=== PATIENT | female | born 1955 | race Caucasian/White ===

== ENCOUNTER 2016-12-05 07:30 | Inpatient (IN) | payer MEDICARE, BC ==
[~2016-12-05 07:30] MED LIST: CHLORHEXIDINE GLUCONATE 15 ML CUP MUCOUS MEM ONE; DEXAMETHASONE SOD PHOSPHATE 10 MG/ML 1 ML VIAL IV ONE; ENOXAPARIN 40 MG/0.4 ML SYRINGE SQ STA; HYDROmorphone 1 MG/ML 1 ML SYRINGE IVP PRN; MIDAZOLAM 2 MG/2 ML VIAL IV PRN; PANTOPRAZOLE 40 MG/10 ML VIAL IV STA; ceFAZolin 2 GM in SODIUM CHLORIDE 0.9% 100 ML IVPB ONE
--- NOTE | 2016-12-05 08:34 | P.GSHP ---
History of Present Illness H&P Date: 12/05/16 DATE OF SERVICE: 12/05/2016 CHIEF COMPLAINT: Bariatric assessment. HISTORY OF PRESENT ILLNESS: Irene Kinney is a 61-year-old female who comes in with troubles with her weight. She has had several years of challenges in controlling her weight. Separately, she has severe gastroesophageal reflux disease. Despite having previous Fercho fundoplasty, her symptoms have become worse. She has developed obstructive sleep apnea including hypertensive heart disease as a result of her morbid obesity. Now she presents for further evaluation and management. At her height of 5 feet 7-1/2 inches, she comes in weighing 238 pounds, body mass index 36.7. Her ideal body weight is 158 pounds. She is 80 pounds overweight. She has completely medical supervised weight loss and has lost 11 pounds in 3 months. PAST MEDICAL HISTORY: 1. Chronic obstructive pulmonary disease. 2. Moderate to severe sleep apnea. 3. Gastroesophageal reflux disease. 4. Hyperlipidemia. 5. Chronic bronchitis. 6. Anxiety. 7. Depression. 8. Osteoarthritis. PAST SURGICAL HISTORY: 1. Fercho fundoplasty. 2. Upper endoscopy. 3. Tubal ligation. 4. Cholecystectomy. MEDICATIONS: 1. Wellbutrin 2. Co-Q10 3. Spiriva 4. Zocor 5. Zoloft 6. Multivitamin 7. DuoNeb 8. Flonase 9. Nexium 10. Vitamin D3 11. Aspirin 12. Proventil 13. Alprazolam. ALLERGIES: ERYTHROMYCIN. SOCIAL HISTORY: Past tobacco abuse. FAMILY HISTORY: Pertinent for hypertension. REVIEW OF SYSTEM: CONSTITUTIONAL: [place] body weight of 158 pounds. Present weight of 238 pounds. Body mass index of 36.7. She has lost 11 pounds since August 2016 otherwise 3 months. GASTROINTESTINAL: Severe gastroesophageal reflux disease. Prior history of Fercho fundoplasty, now with failure. RESPIRATORY: Severe COPD. History of sleep apnea. MUSCULOSKELETAL: Has osteoarthritis of the lower back including bilateral hips and knees. ENDOCRINE: No reports of thyroid disorder or glucose intolerance. CARDIOVASCULAR: History of hyperlipidemia. Also has hypertension. NEURO: No reports of stroke or seizure disorder. PSYCH: History of depression without suicidal ideation. History of anxiety. HEMATOLOGIC: No reports of DVTs or easy bruising or bleeding. HEENT: No reports of dysphagia, troubles with hearing or nosebleeds. PHYSICAL EXAM: VITAL SIGNS: 98.3, 86, 16, 133/82, 5 feet 7-1/2, 238pounds, body mass index of 36.7. GENERAL: Well-developed female, no acute distress. ABDOMEN: Soft, nontender, nondistended. HEENT: No scleral icterus. Extraocular movements grossly intact. Moist buccal mucosa. NECK: Supple without lymphadenopathy. CHEST: Nonlabored respirations. Equal bilateral excursions. CARDIOVASCULAR: Regular rate and rhythm. MUSCULOSKELETAL: No clubbing, cyanosis, or edema. NEURO: No focal or lateralizing signs. PSYCH: Appropriate affect. Alert and oriented to person, place, and time. LABS: Bariatric metabolic panel has improved in the past without evidence of prediabetes. ASSESSMENT: 1. Morbid obesity due to excess caloric intake. 2. Body mass index today 38.4 down to 36.7 3. Hypertensive heart disease. 4. Chronic obstructive pulmonary disease. 5. Obstructive sleep apnea. 6. Hyperlipidemia. 7. Depression. 8. Anxiety disorder. 9. History of gastroesophageal reflux disease. 10. History of recurrent diaphragmatic hiatal hernia. 11. Dietary surveillance and counseling. 12. Osteoarthritis of lower back. 13. Osteoarthritis of the bilateral hips. 14. Hypertension. 15. Dietary surveillance and counseling. PLAN: 1. Given severity of gastroesophageal reflux disease including comorbidities, she has elected for Da-en-Y gastric bypass. Extended time for surgery was also reviewed with her history of Fercho fundoplasty. 2. She has increased risk for complications including leak, stricture, which she demonstrated understanding. 3. An 8 page bariatric second generation consent form reviewed in detail and signed between myself and the patient. Risks including nutritional deficiencies reviewed in detail as well. 4. [place] bariatric surgery collaborative was also reviewed as well. 5. Inpatient hospitalization of 2 days or more advised. 6. DVT prophylaxis. 7. Antibiotic prophylaxis. 8. Will need a CPAP machine. 9. In review of her clinical profile, she demonstrates an understanding of a bariatric lifestyle. Past Medical History Past Medical History: Asthma, Cancer, COPD, GERD/Reflux, Hyperlipidemia, Respiratory Disorder, Sleep Apnea/CPAP/BIPAP Additional Past Medical History / Comment(s): chronic bronchitis, varicose veins , hx ulcers, hx skin cancer History of Any Multi-Drug Resistant Organisms: None Reported Past Surgical History: Cholecystectomy, Tubal Ligation Additional Past Surgical History / Comment(s): fercho fundoplication, Past Anesthesia/Blood Transfusion Reactions: Motion Sickness Past Psychological History: Anxiety, Depression Smoking Status: Former smoker Additional Past Alcohol Use History / Comment(s): quit smoking regular 3 years ago, still occ smoking-last time was 3 weeks ago, was up to 2 1/2 PPD, Started smoking age 15 Past Drug Use History: None Reported - Past Family History Mother Family Medical History: Hypertension Father Family Medical History: Cancer Additional Family Medical History / Comment(s): due to accident, Medications and Allergies Home Medications Medication Instructions Recorded Confirmed Type ALPRAZolam 1 mg PO HS 05/22/16 12/02/16 History ALPRAZolam [ALPRAZolam XR] 0.5 mg PO QAM 05/22/16 12/02/16 History Albuterol Sulfate [Proventil Hfa] 1 - 2 puff INHALATION Q6HR PRN 05/22/16 History Aspirin [Adult Low Dose Aspirin EC] 81 mg PO DAILY 05/22/16 12/02/16 History Esomeprazole Magnesium [NexIUM] 40 mg PO DAILY 05/22/16 12/02/16 History Fluticasone Nasal [place] [Flonase 2 spr EA NOSTRIL DAILY PRN 05/22/16 12/02/16 History Nasal [place]] Multivitamin [Multivitamins Adult 1 each PO DAILY 05/22/16 12/02/16 History Gummies] Sertraline HCl [Zoloft] 50 mg PO DAILY 05/22/16 12/02/16 History Sertraline HCl [Zoloft] 100 mg PO HS 05/22/16 12/02/16 History Simvastatin [Zocor] 20 mg PO HS 05/22/16 12/02/16 History Tiotropium [place] [Spiriva] 1 cap INHALATION DAILY 05/22/16 12/02/16 History buPROPion SR [Wellbutrin Sr] 150 mg PO BID 05/22/16 12/02/16 History Beclomethasone Dipropionate [Qvar 2 puff INHALATION BID 12/02/16 12/02/16 History 40 mcg] Allergies Allergy/AdvReac Type Severity Reaction Status Date / Time erythromycin base AdvReac Diarrhea Verified 12/02/16 08:42
[2016-12-05] MEDS ORDERED: ceFAZolin 2 GM in SODIUM CHLORIDE 0.9% 100 ML IVPB ONE (10:30)
[2016-12-05] MEDS: LACTATED RINGERS 1,000 ML IV SCH ×2 (10:54→11:11)
[2016-12-05] MEDS: ONDANSETRON 4 MG/2 ML VIAL IVP ONE ×2 (11:04→15:50)
[2016-12-05] MEDS ORDERED: VECURONIUM 10 MG VIAL IV ONE (11:12)
[2016-12-05] MEDS ORDERED: SUCCINYLCHOLINE CHLORIDE 100 MG/5 ML SYR IV ONE (11:12)
[2016-12-05] MEDS ORDERED: fentaNYL (PF) 50 MCG/ML 2 ML AMP ONE (11:12)
[2016-12-05] MEDS ORDERED: GLYCOPYRROLATE 0.2 MG/ML 2 ML VIAL ONE (11:12)
[2016-12-05] MEDS ORDERED: PROPOFOL 10 MG/ML 20 ML VIAL IV ONE (11:12)
[2016-12-05] MEDS ORDERED: HYDROmorphone (PF) 1 MG/ML ONE (11:12)
[2016-12-05] MEDS ORDERED: ROCURONIUM BROMIDE 10 MG/ML 10 ML VIAL IV ONE (11:12)
[2016-12-05] MEDS ORDERED: NEOSTIGMINE 1 MG/ML 10 ML VIAL ONE (11:12)
[2016-12-05] MEDS ORDERED: LIDOCAINE 1% INJ 10MG/ML (20 ML MDV) ONE (11:12)
[2016-12-05] MEDS ORDERED: PHENYLEPHRINE-0.9% NACL SYG 1 MG/10 ML SYRINGE ONE (11:12)
[2016-12-05] MEDS ORDERED: MIDAZOLAM 2 MG/2 ML VIAL ONE (11:12)
[2016-12-05] MEDS: BUPIVACAINE LIPOSOME/PF 1.3% 20 ML, BUPIVACAIN-EPI 0.5%-1:200,000 25 ML, SODIUM CHLORID... MISCELLANE ONE ×6 (11:45→11:56)
[2016-12-05] MEDS ORDERED: LACTATED RINGERS 1,000 ML IV ONE ×2 (11:49→14:38)
--- NOTE | 2016-12-05 14:46 | P.PCN ---
Date of Procedure: 12/05/16 Preoperative Diagnosis: Morbid obesity Postoperative Diagnosis: Same Procedure(s) Performed: Gastric bypass, 125 cm, takedown Fercho fundoplasty, lysis of adhesions over 1.5 hours, intraoperative esophagogastrojejunoscopy, placement of SHANNAN drain, placement of Isela drain Anesthesia: RABIA, local Surgeon: Ashley Winter Estimated Blood Loss (ml): 50 Pathology: none sent Condition: stable Disposition: floor Operative Findings: Takedown Fercho fundoplasty, reinforced stapler gastric remnant medial edge, negative test, 4 purple staplers for gastric pouch
[2016-12-05] MEDS ORDERED: NALOXONE 0.4 MG/ML 1 ML VIAL IV PRN (14:58)
[2016-12-05] MEDS ORDERED: diphenhydrAMINE 50 MG/ML 1 ML VIAL IVP PRN (14:58)
[2016-12-05] MEDS ORDERED: HYOSCYAMINE ORAL DROPS 1.875 MG/15 ML BOTTLE PO PRN (14:58)
[2016-12-05] MEDS ORDERED: HYDROcodone/APAP 15 ML SOLUTION PO PRN (14:58)
[2016-12-05] MEDS: ALBUTEROL NEBULIZED 2.5 MG/3 ML INHALATION SCH ×2 (16:20→21:11)
--- NOTE | 2016-12-05 16:38 | P.PN ---
Subjective Principal diagnosis: Morbid obesity The patient is postop day 0 status post gastric bypass and takedown of Fercho fundoplasty. She's been transferred to her room. No reports of nausea or vomiting. Objective - Vital Signs Vital signs: Vital Signs Temp 99.2 F 12/05/16 14:50 Pulse 89 12/05/16 15:50 Resp 16 12/05/16 15:50 BP 135/60 12/05/16 15:50 Pulse Ox 94 L 12/05/16 16:27 Intake & Output 12/04/16 12/05/16 12/05/16 18:59 06:59 18:59 Intake Total 2300 Output Total 400 Balance 1900 Weight 104.553 kg Intake: IV 2300 Output: Urine 280 Estimated Blood Loss 120 - Exam GENERAL: Well developed and in no acute distress. Pleasant. HEENT: No sclera icterus. Extraocular movements grossly intact. Moist buccal mucosa. Head is atraumatic, normocephalic. Hears conversational speech. No nasal drainage. NECK: Supple without lymphadenopathy. No JV distention. CHEST: Non-labored respirations and equal bilateral excursions. CARDIOVASCULAR: Regular rate and rhythm. Palpable 2+ radial pulses. ABDOMEN: Soft, SHANNAN sanguinous serous. Appropriate tenderness. Incisional left upper quadrant. MUSCULOSKELETAL: No clubbing, cyanosis or edema. NEUROLOGIC: No focal or lateralizing signs. PSYCH: Appropriate affect. Alert and oriented to person, place and time. Assessment and Plan (1) Gastroesophageal reflux Status: Chronic (2) Failure of fundoplication Status: Chronic (3) BMI 35.0-35.9,adult Status: Chronic (4) COPD (chronic obstructive pulmonary disease) Status: Chronic (5) Sleep apnea Status: Chronic (6) Hypertension, essential Status: Chronic (7) Gastric bypass status for obesity Status: Acute Plan: 1. Continue with IV fluid hydration. 2. DVT prophylaxis. 3. Home health care evaluation. 4. SHANNAN teaching. 5. Recommend prophylactic antibiotics. 6. All current meds on hold to be restarted in 24 hours.
[2016-12-05] MEDS: 0.9% NACL WITH KCL 20 MEQ/L 1,000 ML IV SCH (17:03)
[2016-12-05] MEDS: METOCLOPRAMIDE 5 MG/ML 2 ML VIAL IVP SCH (17:03)
--- NOTE | 2016-12-05 17:08 | P.OP ---
Date of Procedure: 12/05/16 Description of Procedure: DESCRIPTION OF PROCEDURE(S): SURGEON: BROOK BELLA MD WAD IMPREGNATOR: CRIS SPARKS. PREOPERATIVE DIAGNOSES: 1. Morbid obesity due to excess caloric intake. 2. Body mass index today 38.4 down to 35.6 3. Hypertensive heart disease. 4. Chronic obstructive pulmonary disease. 5. Obstructive sleep apnea. 6. Hyperlipidemia. 7. Depression. 8. Anxiety disorder. 9. History of gastroesophageal reflux disease. 10. History of recurrent diaphragmatic hiatal hernia. 11. Dietary surveillance and counseling. 12. Osteoarthritis of lower back. 13. Osteoarthritis of the bilateral hips. 14. Hypertension. 15. Dietary surveillance and counseling. POSTOPERATIVE DIAGNOSES: 1. Morbid obesity due to excess caloric intake. 2. Body mass index today 38.4 down to 35.6 3. Hypertensive heart disease. 4. Chronic obstructive pulmonary disease. 5. Obstructive sleep apnea. 6. Hyperlipidemia. 7. Depression. 8. Anxiety disorder. 9. History of gastroesophageal reflux disease. 10. History of recurrent diaphragmatic hiatal hernia. 11. Dietary surveillance and counseling. 12. Osteoarthritis of lower back. 13. Osteoarthritis of the bilateral hips. 14. Hypertension. 15. Dietary surveillance and counseling. 16. Hepatomegaly. 17. Ileus. 18. History of previous fundoplasty. OPERATION: 1. Laparoscopic takedown of previous Fercho fundoplasty. 2. Laparoscopic lysis of adhesions, over 1.5 hours. 3. Laparoscopic Da-en-Y gastric bypass, 125 cm antecolic antegastric Da limb, with 25 mm EEA. 4. Intraoperative esophagogastroduodenoscopy. 5. Intraoperative esophagogastrojejunoscopy. 6. Peritoneal block using Exparel. 7. Placement of round on the 19 SHANNAN drain via left upper quadrant. 8. Application of OptiFoam dressing. 9. Placement of quarter inch [place] drain left upper quadrant incision. ANESTHESIA: 85 mL Exparel with sensorcaine with epinephrine and normal saline mixture. ESTIMATED BLOOD LOSS: 50 mL SPECIMENS REMOVED: None. COMPLICATIONS: None. INDICATIONS: Irene Kinney is a 61-year-old female who comes in with troubles with her weight. She has had several years of challenges in controlling her weight. Separately, she has severe gastroesophageal reflux disease. Despite having previous Fercho fundoplasty, her symptoms have become worse. She has developed obstructive sleep apnea including hypertensive heart disease as a result of her morbid obesity. Now she presents for further evaluation and management. At her height of 5 feet 7-1/2 inches, she comes in weighing 230 pounds, body mass index 35.6. Her ideal body weight is 158 pounds. She is 72 pounds overweight. Her highest weight is 249 pounds. She has completely medical supervised weight loss and has lost 19 pounds in 4 months. All surgical options for morbid obesity had been described using the [place] bariatric surgery collaborative comorbidity resolution including complication risk score. The patient had elected for a gastric bypass with possible sleeve gastrectomy. She is at increased risks for leaks including stricture from her previous fundoplasty. A second-generation bariatric consent form was described in detail including the possibility of protein malnutrition, leaks, gastrojejunal stricture, venous thrombosis for which she demonstrated understanding. Benefits and risks of the procedure were described at length. Informed consent was obtained. DESCRIPTION: The patient was brought into the operating room theater. She was placed on a split leg table. Preoperatively she had received Lovenox subcutaneously for DVT prophylaxis. Additionally she had undergone Peridex oral solution as an oral decontaminant. After general induction, the abdomen was prepped and draped in standard sterile fashion. A Avalos catheter was placed. Ioban draping was placed along the abdomen. A 0 10 mm laparoscopic trocar entry was performed along the epigastrium approximately 15 cm distal to the xiphoid process. Her xiphoid to her umbilicus was 19 cm for her height of 5 foot 7.5 inches. Diagnostic laparoscopy demonstrated no injury to bowel, viscera, or mesentery. Moderate small bowel and large bowel distention was identified along the pelvis consistent with ileus. The liver surface was unremarkable. Hepatomegaly was identified. No injury had occurred to the small bowel or viscera. At the left upper quadrant 2- 12 mm trocars were placed 1 along the left midclavicular line and another along the anterior axillary line. In a mirror-graham fashion, 2 - 12 mm trocars were also placed along the right upper abdomen in a mirror-graham fashion. Attention was brought to creation of the gastric pouch. Placement of a medium size Ginger liver retractor was used to elevate the left lobe of the liver for greater visualization of the upper abdomen, particularly the superior pole of the stomach. The patient was then placed in reverse Trendelenburg. The Ginger liver retractor was held in place using an iron digital intern. The lesser curvature of the stomach was adhesed from her previous Fercho fundoplasty. The superior pole of the stomach was densely adherent to the undersurface of the liver. Using a combination of blunt dissection, decision and electro-Bovie cautery, over 1-1/2 hours was used to mobilize and free the gastric fundoplication from the hiatus. A full-thickness gastrotomy had occurred. No injury to the esophagus had occurred. The hiatus was exposed using blunt dissection. Hemostasis was checked with electro-Bovie cautery. The stomach was unfolded to create the gastric pouch. Along the lesser curvature of the stomach between the third and fourth veins, dissection was made along the retrogastric space to allow first firing of the Covidien Tri-Staple purple load. Once adequately mobilized, an initial firing using a 60 mm purple load was performed perpendicular to the lesser curvature of the stomach. To completely divide the pouch from the remnant stomach, three 60 mm purple tissue reinforce Covidien stapler loads were fired towards the angle of His. A total of 4 - 60 mm purple staplers were used to create the gastric pouch. Hemostasis was checked with electro-Bovie cautery along the left lateral edge of the gastric remnant stomach. Careful separation of the remnant stomach and gastric pouch was confirmed to decrease risk of gastrogastric fistula. I went to the head of the bed to investigate the gastric pouch and to confirm complete reduction of her fundoplication. An Olympus gastric scope was passed along posterior oropharynx down to distal esophagus. The distal esophagus was tortuous and angulated. The pouch was entered confirming complete resection of the gastric pouch from remnant stomach. No gastro-gastric fistula was identified. The scope was found anterior to the staple line. The gastroscope was then removed for placement of the Orvil. The patient was then prepared for placement of a Orvil. The patient was Mallampati 3. A 25-mm Orvil was selected for placement by the nurse support services specialist. The Orvil tubing was placed to the staple line of the gastric pouch and brought out through the left inferior lateral port along the patient care nursing assistant port. The Orvil was then carefully and successfully navigated with the help of the nurse support services specialist into the gastric pouch. The sutures were identified and divided. The tubing was from the 25 mm anvil. Using aseptic technique all instruments including port sites were exchanged. The patient was repositioned to supine position with the bed levelled. The transverse mesocolon, including the omentum, was reflected over the stomach. The ligament of Treitz was identified and measured 60 cm antegrade. The jejunum was divided at the 60 cm point after using metered graspers for measurement. The biliopancreatic limb was held in place by the patient care nursing assistant. The Da limb was then measured 125 cm distally to avoid tension along the proposed gastrojejunal anastomosis. The Da limb was marked using a [place] drain and 2-0 silk on an Endo Stitch along its proximal staple edge. At 125 cm along the anti-mesenteric border of the Da limb, a jejunojejunostomy was proposed whereby enterotomies were created along the biliopancreatic limb including the Da limb using a suction Bovie cautery. The enterotomies were widened using a [place]. A bidirectional fire was performed whereby from the right side a 45 mm loco load was fired. From the left side a separate 45 mm firing had occurred, creating a 90 mm jejunojejunostomy. The defect was then closed using a 60 mm loco load. The jejunojejunostomy was found to be hemostatic. Attention was now brought to the creation of the gastrojejunostomy. As the Orvil had been placed, the blind jejunal limb was brought proximally into the upper abdomen. The transverse mesocolon was cleaved using a Harmonic scalpel. The patient was repositioned in reverse Trendelenburg. No tension was found upon the Da limb as the limb was brought along the upper abdomen. The blind jejunal limb was opened using a cordless Harmonic scalpel. The 25-mm EEA stapler was brought through the left anterior lateral port site from the left side. Please note that the trocars from the Orvil tubing, including the port, were removed to minimize contamination from the oral stacie. The EEA stapler was brought through the open jejunal limb and its needle was deployed at the antimesenteric border where the anvil were mated for approximately 1 minute upon firing. The stapler was removed after irrigating the shaft of the instrument with warm normal saline. Donuts were found to be intact and thick on both sides. The open jejunal limb defect was closed using a 60 mm loco load after releasing any tension from the blind jejunal limb. Hemostasis was checked with Sonicision along the blind jejunal limb mesentery. Care was taken to avoid any long blind limb to avoid candycane syndrome. Reinforcement suture using 2-0 Polysorb on an Endo Stitch was placed at the 3 o' clock position to invaginate a previous superficial cautery site of the gastric pouch. Closure of the mesenteric defects was performed, initially of the [place] defect using 2-0 silk on an Endo Stitch and a Lapra-Ty and the jejunojejunostomy mesenteric defect. I then went to the head of the bed to perform the esophagogastrojejunoscopy and a leak test. An Olympus gastroscope was passed along the posterior oropharynx which was unremarkable for any injury to the vocal cords. The scope was passed down to the proximal portion of the pouch, whereby no active bleeding was encountered. Excellent visualization of the gastrojejunostomy anastomosis. Endoscopic image obtained. The anastomosis was found to be patent. The gastrointestinal tract was desufflated. No evidence of intraoperative leak was encountered as the gastric pouch and anastomosis were submerged under normal saline solution. I then went back to the bedside of the patient, whereby with coordinated effort of the patient care nursing assistant, irrigation was aspirated from the upper abdominal cavity. Tisseel was placed circumferentially over the anastomosis of the gastrojejunostomy. A round 19 [place] drain was placed anterior over the gastrojejunal anastomosis given the high risk nature of the case. The fascial defect of the EEA stapler site was closed using a Lyle Crane and 0 Vicryl with 2 separate sutures. All instruments and pneumoperitoneum were evacuated from the abdominal cavity. The port correlating with the EEA stapler device was copiously irrigated with 3 L of warm normal saline solution and 50 mL of hydrogen peroxide. A quarter inch [place] drain was placed along the EEA stapler site and tacked using 2-0 nylon. The rest of incisions were reapproximated using 3-0 Vicryl for deep subcutaneous tissue and dermis followed by 4-0 Monocryl in a running subcuticular fashion. For local anesthetic, 85 mL of Exparel including Sensorcaine with epinephrine and normal saline mixture was infiltrated along the skin for postop analgesia. Dermabond was applied to the skin. OptiFoam dressing was placed along the EEA stapler site. CHG Tegaderm was placed over the SHANNAN site. At the end of the procedure, needle, sponge and instrument count had been verified correct by the medtronics technician. She had tolerated the procedure well and was taken to the postanesthesia unit in stable condition. Total skin to skin time was 170 minutes. Intraoperative films were reviewed with the patient's family who are very pleased with the level of care. FINDINGS: 1. Negative intraoperative esophagogastrojejunoscopy leak test. 2. Mild hepatomegaly. 3. All defects including jejunojejunostomy Montiel defects were closed. 4. Total of 4 staple loads including 1 - 60 mm Covidien tri-stapler purple and 3 - 60 mm tissue reinforced purple loads used to create the gastric pouch. 5. Gastrojejunostomy created using 25 mm Orvil. 6. Jejunojejunostomy created with 90 mm zuleima-lumen 7. Xiphoid to umbilical height of 19 cm. 8. Reinforcement gastrojejunal anastomosis at 3 o'clock position. 9. Baseline ileus prior to start of procedure. 10. Takedown of Fercho fundoplasty.
--- NOTE | 2016-12-05 17:13 | P.DS ---
Providers Date of admission: 12/05/16 09:36 Expected date of discharge: 12/09/16 Attending physician: Ashley Winter Consults: Spring - COPD Primary care physician: Adrien Gonzales - Discharge Diagnosis(es) (1) Gastroesophageal reflux Current Visit: Yes Status: Chronic (2) Failure of fundoplication Current Visit: Yes Status: Chronic (3) BMI 35.0-35.9,adult Current Visit: Yes Status: Chronic (4) COPD (chronic obstructive pulmonary disease) Current Visit: Yes Status: Chronic (5) Sleep apnea Current Visit: Yes Status: Chronic (6) Hypertension, essential Current Visit: Yes Status: Chronic (7) Gastric bypass status for obesity Current Visit: Yes Status: Acute (8) Hypophosphatemia Current Visit: Yes Status: Acute (9) Withdrawal from benzodiazepine Current Visit: Yes Status: Acute Hospital Course: POSTOPERATIVE DIAGNOSES: 1. Morbid obesity due to excess caloric intake. 2. Body mass index today 38.4 down to 35.6 3. Hypertensive heart disease. 4. Chronic obstructive pulmonary disease. 5. Obstructive sleep apnea. 6. Hyperlipidemia. 7. Depression. 8. Anxiety disorder. 9. History of gastroesophageal reflux disease. 10. History of recurrent diaphragmatic hiatal hernia. 11. Dietary surveillance and counseling. 12. Osteoarthritis of lower back. 13. Osteoarthritis of the bilateral hips. 14. Hypertension. 15. Dietary surveillance and counseling. 16. Hepatomegaly. 17. Ileus. 18. History of previous fundoplasty. COURSE: Irene Kinney is a 61-year-old female who comes in with troubles with her weight. She has had several years of challenges in controlling her weight. Separately, she has severe gastroesophageal reflux disease. Despite having previous Fercho fundoplasty, her symptoms have become worse. She has developed obstructive sleep apnea including hypertensive heart disease as a result of her morbid obesity. Now she presents for further evaluation and management. At her height of 5 feet 7-1/2 inches, she comes in weighing 230 pounds, body mass index 35.6. Her ideal body weight is 158 pounds. She is 72 pounds overweight. Her highest weight is 249 pounds. She has completely medical supervised weight loss and has lost 19 pounds in 4 months. All surgical options for morbid obesity had been described using the [place] bariatric surgery collaborative comorbidity resolution including complication risk score. The patient had elected for a gastric bypass with possible sleeve gastrectomy. She is at increased risks for leaks including stricture from her previous fundoplasty. A second-generation bariatric consent form was described in detail including the possibility of protein malnutrition, leaks, gastrojejunal stricture, venous thrombosis for which she demonstrated understanding. Benefits and risks of the procedure were described at length. Informed consent was obtained. Postoperatively, her white blood cell count was monitored. She was started on Levaquin for history of contaminated class III case. With her history of COPD, pulmonary consultation was also obtained. SHANNAN drain and CBC including electrolytes were closely followed with correction of hypophosphatemia. Prior to discharge, she was ambulating and tolerating diet. Home health care services were arranged. She demonstrated and verbalized understanding of her bariatric care diet and instructions. Pertinent Studies: Chest x-ray demonstrates prominent interstitial edema of the lungs. No pleural effusion. Procedures: OPERATION: 1. Laparoscopic takedown of previous Fercho fundoplasty. 2. Laparoscopic lysis of adhesions, over 1.5 hours. 3. Laparoscopic Da-en-Y gastric bypass, 125 cm antecolic antegastric Da limb, with 25 mm EEA. 4. Intraoperative esophagogastroduodenoscopy. 5. Intraoperative esophagogastrojejunoscopy. 6. Peritoneal block using Exparel. 7. Placement of round on the 19 SHANNAN drain via left upper quadrant. 8. Application of OptiFoam dressing. 9. Placement of quarter inch Hutto drain left upper quadrant incision. Patient Condition at Discharge: Stable Plan - Discharge Summary New Discharge Prescriptions: HYDROcodone/APAP [[place] Elixir 7.5-325Mg/15Ml] 30 ml PO Q6HR PRN #480 ml PRN Reason: Pain Levofloxacin [Levaquin] 500 mg PO DAILY #5 tab Tamsulosin HCl [Flomax] 0.4 mg PO DAILY #10 cap.er.24h Discharge Medication List ALPRAZolam 1 mg PO HS 05/22/16 [History] ALPRAZolam [ALPRAZolam XR] 0.5 mg PO QAM 05/22/16 [History] Albuterol Sulfate [Proventil Hfa] 1 - 2 puff INHALATION RT-TID PRN 05/22/16 [ History] Esomeprazole Magnesium [NexIUM] 40 mg PO DAILY 08/03/16 [History] Fluticasone Nasal Gregory [Flonase Nasal Gregory] 2 spr EA NOSTRIL DAILY PRN [History] Sertraline HCl [Zoloft] 50 mg PO DAILY 05/22/16 [History] Sertraline HCl [Zoloft] 100 mg PO HS 05/22/16 [History] Tiotropium [place] [Spiriva] 1 cap INHALATION RT-DAILY 05/22/16 [History] buPROPion SR [Wellbutrin Sr] 150 mg PO BID 05/22/16 [History] Beclomethasone Dipropionate [Qvar 40 mcg] 2 puff INHALATION RT-BID 12/02/16 [ History] HYDROcodone/APAP [[place] Elixir 7.5-325Mg/15Ml] 30 ml PO Q6HR PRN #480 ml [Rx] Levofloxacin [Levaquin] 500 mg PO DAILY #5 tab 12/09/16 [Rx] Tamsulosin HCl [Flomax] 0.4 mg PO DAILY #10 cap.er.24h 12/09/16 [Rx] Follow up Appointment(s)/Referral(s): Ashley Winter MD [STAFF PHYSICIAN] - 12/12/16 10:30 am (Bariatric Center) Arabella Londono DO [Doctor of Osteopathic Medicine] - 12/16/16 3:30 pm [facility], [NON-STAFF] - Patient Instructions/Handouts: Da-en-Y Gastric Bypass (DC), Nutrition after Bariatric Surgery (DC), David-Jasso Drain Care (DC) Activity/Diet/Wound Care/Special Instructions: No lifting over 4 pounds in 4 weeks. Follow-up at the bariatric center. May sponge bath. Do not shower until cleared by surgeon. Dressings to be discontinued by surgeon in the office. Discharge Disposition: HOME WITH HOME HEALTH SERVICES
[2016-12-05 17:44] VITALS: BMI 35.5
[2016-12-05] MEDS: HYDROmorphone 1 MG/ML 1 ML SYRINGE IVP PRN ×2 (19:44→22:21)
[2016-12-05] MEDS: ceFAZolin 2 GM in SODIUM CHLORIDE 0.9% 100 ML IVPB SCH (19:57)
[2016-12-06] MEDS: 0.9% NACL WITH KCL 20 MEQ/L 1,000 ML IV SCH ×2 (00:04→05:36)
[2016-12-06] MEDS: METOCLOPRAMIDE 5 MG/ML 2 ML VIAL IVP SCH ×4 (00:04→17:31)
[2016-12-06] MEDS: HYDROmorphone 1 MG/ML 1 ML SYRINGE IVP PRN ×5 (01:53→19:56)
[2016-12-06] MEDS: ceFAZolin 2 GM in SODIUM CHLORIDE 0.9% 100 ML IVPB SCH (01:54)
[2016-12-06] MEDS: SIMETHICONE 40 MG/0.6 ML DROPS 2,000 MG/30 ML BOTTLE PO PRN (02:55)
[2016-12-06] MEDS: LACTATED RINGERS 1,000 ML IV SCH (05:56)
[2016-12-06 07:25] LABS: Basophils # (A) 0.1 k/uL (0-0.2); Basophils % (A) 0 %; CH 30.4; CHCM 32.4; Eosinophils % (A) 0 %; HCT 37.6 % (34.0-46.0); HDW 2.54; HGB 12.2 gm/dL (11.4-16.0); Luc # (Auto) 0.24; Luc % (Auto) 2; Lymphocytes # (A) 1.6 k/uL (1.0-4.8); Lymphocytes % (A) 14 %; MCH 30.5 pg (25.0-35.0); MCHC 32.5 g/dL (31.0-37.0); MCV 94.1 fL (80.0-100.0); Mean Platelet Volume 7.7; Monocytes # (A) 0.9 k/uL (0-1.0); Monocytes % (A) 8 %; Neutrophils # (A) 8.8 k/uL (1.3-7.7); Neutrophils % (A) 76 %; RDW 13.9 % (11.5-15.5); WBC 11.5 k/uL (3.8-10.6)
[2016-12-06 07:57] LABS: Anion Gap 9 mmol/L; Blood Urea Nitrogen 14 mg/dL (7-17); Calcium 8.1 mg/dL (8.4-10.2); Carbon Dioxide 25 mmol/L (22-30); Chloride 108 mmol/L (98-107); Magnesium 1.9 mg/dL (1.6-2.3); Non-African American GFR(MDRD) >60 (>60 ml/min/1.73 sqM); Phosphorous 3.4 mg/dL (2.5-4.5); Potassium 4.5 mmol/L (3.5-5.1); Sodium 142 mmol/L (137-145)
[2016-12-06] MEDS: PANTOPRAZOLE 40 MG/10 ML VIAL IV SCH (08:20)
[2016-12-06] MEDS: ENOXAPARIN 40 MG/0.4 ML SYRINGE SQ SCH (08:22)
[2016-12-06] MEDS ORDERED: SODIUM CHLORIDE 0.9% 1,000 ML BAG ONE (08:38)
[2016-12-06] MEDS: 1: MVI, ADULT NO.4 WITH VIT K 10 ML, THIAMINE 100 MG, FOLIC ACID 1 MG, POTASSIUM CHLORID IV SCH ×12 (08:38→19:58)
[2016-12-06] MEDS: ALBUTEROL NEBULIZED 2.5 MG/3 ML INHALATION SCH ×4 (08:50→19:46)
--- NOTE | 2016-12-06 14:48 | P.PN ---
Progress Note - Text Patient seen and evaluated. Continue hospitalization. Pain is poorly controlled.
--- NOTE | 2016-12-06 21:09 | P.PN ---
Subjective Principal diagnosis: Morbid obesity The patient is postop day 1 status post gastric bypass and takedown of Fercho fundoplasty. She reports troubles with urination which had been present prior to admission. Avalos catheter has been placed. She is tolerating ice chips. She reports latha-incisional pain especially of the left upper abdomen. Objective - Vital Signs Vital signs: Vital Signs Temp 97 F L 12/06/16 14:23 Pulse 108 H 12/06/16 14:23 Resp 16 12/06/16 14:23 BP 136/68 12/06/16 14:23 Pulse Ox 93 L 12/06/16 14:23 Intake & Output 12/06/16 12/06/16 12/07/16 06:59 18:59 06:59 Intake Total 1550 800 Output Total 1050 1200 800 Balance 500 -400 -800 Weight 104.553 kg Intake: Intake, IV Titration 1550 800 Amount 0.9% NaCl with KCl 20 Meq 1350 /l 1,000 ml @ 150 mls/hr IV .[id number] DANNY Rx#: [id number] Mvi, Adult No.4 with Vit 800 K 10 ml Thiamine 100 mg Folic Acid 1 mg Potassium Chloride 20 meq In Sodium Chloride 0.9% 1, 000 ml @ 100 mls/hr IV . BY DURATION DANNY Rx#: [id number] ceFAZolin 2 gm In Sodium 200 Chloride 0.9% 100 ml @ 100 mls/hr IVPB Q8H DANNY Rx#:[id number] Output: Drainage 250 Left Abdomen 250 Urine 800 1200 800 Straight 800 600 Uretheral (Avalos) 800 - Exam GENERAL: Well developed and in no acute distress. Pleasant. HEENT: No sclera icterus. Extraocular movements grossly intact. Moist buccal mucosa. Head is atraumatic, normocephalic. Hears conversational speech. No nasal drainage. NECK: Supple without lymphadenopathy. No JV distention. CHEST: Mild labored respirations and equal bilateral excursions. CARDIOVASCULAR: Tachycardic. Palpable 2+ radial pulses. ABDOMEN: Soft, SHANNAN sanguinous. Incisions clean dry and intact. Minimal distention. No peritonitis. MUSCULOSKELETAL: No clubbing, cyanosis or edema. NEUROLOGIC: No focal or lateralizing signs. PSYCH: Appropriate affect. Alert and oriented to person, place and time. - Labs CBC & Chem 7: 12/06/16 07:12 12/06/16 07:09 Labs: Abnormal Lab Results - Last 24 Hours (Table) 12/06/16 12/06/16 Range/Units 07:09 07:12 WBC 11.5 H (3.8-10.6) k/uL Neutrophils # 8.8 H (1.3-7.7) k/uL Chloride 108 H (98-107) mmol/L Calcium 8.1 L (8.4-10.2) mg/dL Assessment and Plan (1) Gastroesophageal reflux Status: Chronic (2) Failure of fundoplication Status: Chronic (3) BMI 35.0-35.9,adult Status: Chronic (4) COPD (chronic obstructive pulmonary disease) Status: Chronic (5) Sleep apnea Status: Chronic (6) Hypertension, essential Status: Chronic (7) Gastric bypass status for obesity Status: Acute Plan: 1. Pulmonary consultation for history of COPD. 2. Adjust pain medication for management. 3. Reinsertion of Avalos catheter secondary to pre-existing urinary retention. 4. Start Flomax. 5. Repeat chemistries. 6. Continue hospitalization.
[2016-12-07] MEDS: HYDROmorphone 1 MG/ML 1 ML SYRINGE IVP PRN ×2 (00:50→09:22)
[2016-12-07] MEDS: METOCLOPRAMIDE 5 MG/ML 2 ML VIAL IVP SCH ×4 (00:50→17:46)
[2016-12-07] MEDS: ceFAZolin 2 GM in SODIUM CHLORIDE 0.9% 100 ML IVPB SCH ×2 (00:50→09:46)
[2016-12-07] MEDS: LACTATED RINGERS 1,000 ML IV SCH (02:37)
[2016-12-07] MEDS: 1: MVI, ADULT NO.4 WITH VIT K 10 ML, THIAMINE 100 MG, FOLIC ACID 1 MG, POTASSIUM CHLORID IV SCH ×12 (04:48→17:39)
[2016-12-07 07:22] LABS: Basophils % (A) 0 %; CH 30.3; Eosinophils # (A) 0.3 k/uL (0-0.7); Eosinophils % (A) 2 %; HCT 34.8 % (34.0-46.0); HDW 2.61; HGB 11.1 gm/dL (11.4-16.0); Luc % (Auto) 1; Lymphocytes # (A) 1.3 k/uL (1.0-4.8); Lymphocytes % (A) 8 %; MCH 30.3 pg (25.0-35.0); MCHC 31.8 g/dL (31.0-37.0); MCV 95.2 fL (80.0-100.0); Mean Platelet Volume 7.2; Monocytes # (A) 0.7 k/uL (0-1.0); Monocytes % (A) 4 %; Neutrophils % (A) 84 %; RBC 3.66 m/uL (3.80-5.40); RDW 13.8 % (11.5-15.5); WBC 15.5 k/uL (3.8-10.6); WBC (Perox) 15.34
[2016-12-07 07:32] LABS: Anion Gap 9 mmol/L; Blood Urea Nitrogen 11 mg/dL (7-17); Calcium 8.1 mg/dL (8.4-10.2); Carbon Dioxide 24 mmol/L (22-30); Chloride 110 mmol/L (98-107); Glucose 107 mg/dL (74-99); Magnesium 2.4 mg/dL (1.6-2.3); Non-African American GFR(MDRD) >60 (>60 ml/min/1.73 sqM); Phosphorous 2.1 mg/dL (2.5-4.5); Potassium 4.2 mmol/L (3.5-5.1); Sodium 143 mmol/L (137-145)
--- NOTE | 2016-12-07 07:45 | XR ---
EXAMINATION TYPE: XR chest 2V DATE OF EXAM: 12/07/2016 7:24 AM COMPARISON: Chest x-ray March 11, 2013. HISTORY: Postoperative bariatric surgery TECHNIQUE: Frontal and lateral views of the chest are obtained. FINDINGS: Low lung volumes are redemonstrated. There is patchy bibasilar atelectatic change. No pleu ral effusion or pneumothorax is seen bilaterally. The cardiac silhouette size is stable and mildly e nlarged. The osseous structures are intact. Cholecystectomy clips are noted. Drainage catheter mid abdomen is partially imaged. IMPRESSION: Low lung volumes with mild cardiomegaly and patchy bibasilar atelectatic change is felt present.
[2016-12-07] MEDS ORDERED: BISACODYL 5 MG TABLET.DR PO PRN (08:00)
[2016-12-07] MEDS ORDERED: SODIUM CHLORIDE 0.9% 1,000 ML BAG ONE (08:35)
[2016-12-07] MEDS: ALBUTEROL NEBULIZED 2.5 MG/3 ML INHALATION SCH ×4 (09:05→19:05)
[2016-12-07] MEDS: SIMETHICONE 40 MG/0.6 ML DROPS 2,000 MG/30 ML BOTTLE PO PRN (09:19)
[2016-12-07] MEDS: PANTOPRAZOLE 40 MG/10 ML VIAL IV SCH (09:20)
[2016-12-07] MEDS: ENOXAPARIN 40 MG/0.4 ML SYRINGE SQ SCH (09:22)
[2016-12-07] MEDS: TAMSULOSIN 0.4 MG CAP.ER.24H PO SCH (09:22)
[2016-12-07] MEDS: LEVOFLOXACIN 500MG-D5W PMX 500 MG in DEXTROSE/WATER 1 100ML.BAG IVPB SCH (10:34)
[2016-12-07] MEDS: SODIUM PHOSPHATE 10 MMOL in SODIUM CHLORIDE 0.9% 250 ML IVPB SCH ×3 (12:07→16:31)
--- NOTE | 2016-12-07 12:19 | P.PN ---
Subjective Principal diagnosis: Morbid obesity Doing better today. Pain is under control. She reports some improvement of her breathing. She is using her incentive spirometer. Objective - Vital Signs Vital signs: Vital Signs Temp 97.2 F L 12/07/16 07:00 Pulse 100 12/07/16 07:00 Resp 15 12/07/16 07:00 BP 130/76 12/07/16 07:00 Pulse Ox 95 12/07/16 09:06 Intake & Output 12/06/16 12/07/16 12/07/16 18:59 06:59 18:59 Intake Total 1821.2 Output Total 1200 1890 800 Balance 621.2 -1890 -800 Weight 104.553 kg Intake: Intake, IV Titration 1821.2 Amount Mvi, Adult No.4 with Vit 1821.2 K 10 ml Thiamine 100 mg Folic Acid 1 mg Potassium Chloride 20 meq In Sodium Chloride 0.9% 1, 000 ml @ 100 mls/hr IV . BY DURATION [facility] Rx#: [id number] Output: Drainage 90 Left Abdomen 90 Urine 1200 1800 800 Straight 600 Uretheral (Avalos) 800 Other: Voiding Method Indwelling Catheter Indwelling Catheter - Exam GENERAL: Well developed and in no acute distress. Pleasant. HEENT: No sclera icterus. Extraocular movements grossly intact. Moist buccal mucosa. Head is atraumatic, normocephalic. Hears conversational speech. No nasal drainage. NECK: Supple without lymphadenopathy. No JV distention. CHEST: Mild labored respirations and equal bilateral excursions. CARDIOVASCULAR: Tachycardic. Palpable 2+ radial pulses. ABDOMEN: Soft, SHANNAN sanguinous. Incisions clean dry and intact. Minimal distention. Mild left upper quadrant pain. Dressing serosanguinous. MUSCULOSKELETAL: No clubbing, cyanosis or edema. NEUROLOGIC: No focal or lateralizing signs. PSYCH: Appropriate affect. Alert and oriented to person, place and time. - Labs CBC & Chem 7: 12/07/16 06:36 12/07/16 06:36 Labs: Abnormal Lab Results - Last 24 Hours (Table) 12/07/16 12/07/16 Range/Units 06:36 06:36 WBC 15.5 H (3.8-10.6) k/uL RBC 3.66 L (3.80-5.40) m/uL Hgb 11.1 L (11.4-16.0) gm/dL Neutrophils # 13.0 H (1.3-7.7) k/uL Chloride 110 H (98-107) mmol/L Creatinine 0.50 L (0.52-1.04) mg/dL Glucose 107 H (74-99) mg/dL Calcium 8.1 L (8.4-10.2) mg/dL Phosphorus 2.1 L (2.5-4.5) mg/dL Magnesium 2.4 H (1.6-2.3) mg/dL - Imaging and Cardiology Abdominal x-ray: report reviewed, image reviewed (No plueral effusion) Assessment and Plan (1) Gastroesophageal reflux Status: Chronic (2) Failure of fundoplication Status: Chronic (3) BMI 35.0-35.9,adult Status: Chronic (4) COPD (chronic obstructive pulmonary disease) Status: Chronic (5) Sleep apnea Status: Chronic (6) Hypertension, essential Status: Chronic (7) Gastric bypass status for obesity Status: Acute (8) Hypophosphatemia Status: Acute Plan: 1. Will remove catheter and continue with Flomax. 2. Start bariatric clears. 3. She is pending pulmonary evaluation for history of moderate COPD. 4. Home health care arranged for SHANNAN and post-operative care. 5. Continue with hospitalization. 6. Change of IV antibiotics for history of contaminated case. 7. Correct low phosphate.
[2016-12-07] MEDS ORDERED: METHYLENE BLUE 10 MG/ML 1 ML VIAL MISCELLANE ONE ×2 (12:22→12:30)
[2016-12-07] MEDS ORDERED: FLUTICASONE 50MCG/SPRAY NASAL 16GM EA NOSTRIL PRN (12:57)
[2016-12-07] MEDS ORDERED: guaiFENesin-Coden 100-10MG/5ML 10 ML CUP PO PRN (13:45)
--- NOTE | 2016-12-07 16:52 | CONS ---
DATE OF CONSULTATION: DATE OF SERVICE: 12/07/2016 HISTORY OF PRESENT ILLNESS: The patient is a 61-year-old female who is status post gastric bypass for obesity. She had recent surgery with laparoscopic Fercho fundoplasty taken down where she has David-Jasso and Isela drain and had been being treated for some problems with pain and initially was to be discharged until she had some difficulty with her breathing. Her voice is noted to be somewhat hoarse. She has been having a cough with occasional phlegm and blood brought up. She does have problems with some of her nebulizer treatments making her nauseated and we will stop the Qvar and start her on Pulmicort and we will also start her on Perforomist and will start flutter therapy to see if this helps. Patient presently has oxygen on also. She does have a significant history of DEWEY, COPD, GERD and frequent problems with chronic bronchitis. Some of her problems could be related from recent intubation for her surgical intervention and exacerbation of her COPD. She denies any nausea or vomiting at this time. Her abdominal incision pain is somewhat better. Her David-Jasso is intact. She denies any chest pain. No diarrhea ALLERGIES: ERYTHROMYCIN. Home medications include Wellbutrin SR 150 mg twice a day, Spiriva daily, Zoloft 50 mg daily and 100 at bedtime, Flonase daily as needed, Nexium 40 mg daily, Qvar 40 mcg 2 puffs twice a day, Proventil inhaler 1 to 2 puffs t.i.d. as needed, alprazolam 0.5 mg in the morning and 1 mg at bedtime. Family history is significant for mother still being alive. She does have a history of hypertension. Father in an accident where a truck fell on him when he was working in the [employer]. SOCIAL HISTORY: The patient is . She has 5 children of her own 4 boys and one girl all alive and well. She wears glasses. 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 She is on disability due to her COPD. She did quit smoking about 4 years ago. She had started smoking at the age of 15 and smoked 2-1/2 packs per day. She denies any recreational drugs. She denies any marijuana. Rare alcohol. Past surgical history is significant for Fercho fundoplasty, upper endoscopy, tubal ligation and cholecystectomy. Past medical history is significant for GERD, DEWEY, hypertension, COPD, hyperlipidemia, chronic bronchitis, anxiety, depression, osteoarthritis, asthma, skin cancer, ulcers, varicose veins, and motion sickness. Review of systems was done with her. Head to toe assessment was done and is negative other than what is noted in her HPI. On physical examination, vital signs show temperature of 97.2, heart rate 100, respiratory rate 15, blood pressure is 130/76, oxygen saturation on 2 L is 95%. LABS: WBC is 15.5, hemoglobin 11.1, hematocrit 34.8, platelets are 197. Sodium is 143, potassium 4.2, chloride 110, carbon dioxide 24, BUN 11, creatinine 0.5. Glucose 107. Calcium 8.1. Phosphorus is 2.1. Magnesium is 2.4. Chest x-ray from today shows low lung volumes with mild cardiomegaly and patchy bibasilar atelectatic changes felt present. GENERAL: She is a 61-year-old female who has noted a hoarse voice and cough. HEENT: Head is atraumatic, normocephalic. Pupils are equal and reactive. Mucous membranes are moist. NECK: Short, supple, thick. LUNGS: Sounds are diminished throughout, faint expiratory wheezes occasionally heard. CARDIOVASCULAR: S1 and S2 is heard. ABDOMEN: Soft. Some tenderness at incision. David-Jasso with serosanguineous fluid noted with Isela drain. EXTREMITIES: With no edema. NEUROLOGIC: She is awake, alert. IMPRESSION: 1. Status post gastric bypass surgery with lysis of adhesions. 2. Acute exacerbation of asthma with chronic obstructive pulmonary disease. 3. Anxiety with depression history. 4. History of hypertension. 5. Obstructive sleep apnea. 6. Leukocytosis. PLAN: Patient's medications have been reviewed. Will stop the Qvar and start her on Pulmicort. We will also start her on Perforomist since she does have problems with DuoNeb. Continue with antibiotic therapy. Continue with GI and DVT prophylaxis. Will order flutter therapy. We will do repeat chest x-ray in the morning. She is encouraged to cough and deep breathe and use her incentive spirometer more, to increase her activity. Thank you for the consultation. We will continue to follow patient closely with you and make further changes as necessary. SUSANAD
--- NOTE | 2016-12-07 17:37 | P.PN ---
Progress Note - Text At bedside, bedside leak test performed using methylene blue 5 mL vial in 200 mL of water. Patient had 3 sips. No blue identified in SHANNAN drain. SHANNAN is sanguinous. We'll discontinue Lovenox injections for increased risk for bleeding.
[2016-12-07] MEDS: FORMOTEROL FUMARATE 20 MCG/2 ML NEBU INHALATION SCH (19:06)
[2016-12-07] MEDS: BUDESONIDE 0.5 MG/2 ML NEBU INHALATION SCH (19:06)
[2016-12-07] MEDS ORDERED: BECLOMETHASONE DIPROPIONATE INHALATION SCH (20:00)
[2016-12-07] MEDS: SERTRALINE 100 MG TAB PO SCH (20:44)
[2016-12-07] MEDS: buPROPion SR 150 MG TABLET.ER PO SCH (20:44)
[2016-12-07] MEDS: ALPRAZolam 0.25 MG TAB PO SCH (21:21)
[2016-12-08] MEDS: METOCLOPRAMIDE 5 MG/ML 2 ML VIAL IVP SCH ×4 (00:15→17:55)
[2016-12-08] MEDS: 1: MVI, ADULT NO.4 WITH VIT K 10 ML, THIAMINE 100 MG, FOLIC ACID 1 MG, POTASSIUM CHLORID IV SCH ×18 (03:23→21:35)
[2016-12-08] MEDS: LACTATED RINGERS 1,000 ML IV SCH (04:11)
[2016-12-08] MEDS: BUDESONIDE 0.5 MG/2 ML NEBU INHALATION SCH (07:38)
[2016-12-08] MEDS: TIOTROPIUM 18 MCG/PUFF INHALER INHALATION SCH (07:38)
[2016-12-08] MEDS: FORMOTEROL FUMARATE 20 MCG/2 ML NEBU INHALATION SCH (07:38)
[2016-12-08] MEDS: ALBUTEROL NEBULIZED 2.5 MG/3 ML INHALATION SCH ×4 (07:38→19:44)
--- NOTE | 2016-12-08 07:39 | XR ---
EXAMINATION TYPE: XR chest 2V DATE OF EXAM: 12/08/2016 7:09 AM COMPARISON: Prior chest x-ray 07 December 2016 HISTORY: Difficulty breathing, cough TECHNIQUE: Frontal and lateral views of the chest are obtained. FINDINGS: No significant interval change. Patchy basilar density persists. Increased AP diameter of the chest. Interstitium is increased. Heart size is stable. IMPRESSION: Correlate to exclude volume overload, pulmonary venous hypertension and interstitial negin ma, there may be basilar atelectasis, difficult to exclude airspace disease. Follow-up suggested.
[2016-12-08] MEDS: PANTOPRAZOLE 40 MG/10 ML VIAL IV SCH (08:04)
[2016-12-08] MEDS: TAMSULOSIN 0.4 MG CAP.ER.24H PO SCH (08:05)
[2016-12-08] MEDS: buPROPion SR 150 MG TABLET.ER PO SCH ×2 (08:05→21:44)
[2016-12-08] MEDS: SERTRALINE 50 MG TAB PO SCH (08:05)
[2016-12-08] MEDS: ALPRAZolam 0.25 MG TAB PO SCH ×4 (08:05→21:47)
[2016-12-08] MEDS: LEVOFLOXACIN 500MG-D5W PMX 500 MG in DEXTROSE/WATER 1 100ML.BAG IVPB SCH (08:06)
[2016-12-08] MEDS ORDERED: SODIUM CHLORIDE 0.9% 1,000 ML BAG ONE (08:35)
[2016-12-08 08:47] LABS: Basophils % (A) 0 %; CH 30.5; CHCM 31.8; Eosinophils # (A) 0.5 k/uL (0-0.7); Eosinophils % (A) 5 %; HCT 32.5 % (34.0-46.0); HDW 2.67; HGB 10.4 gm/dL (11.4-16.0); Luc # (Auto) 0.15; Luc % (Auto) 1; Lymphocytes # (A) 1.3 k/uL (1.0-4.8); Lymphocytes % (A) 12 %; MCH 30.9 pg (25.0-35.0); MCV 96.5 fL (80.0-100.0); Mean Platelet Volume 8.2; Monocytes # (A) 0.5 k/uL (0-1.0); Monocytes % (A) 5 %; Neutrophils # (A) 8.6 k/uL (1.3-7.7); Neutrophils % (A) 78 %; RBC 3.37 m/uL (3.80-5.40); RDW 13.9 % (11.5-15.5); WBC 11.1 k/uL (3.8-10.6); WBC (Perox) 11.32
[2016-12-08 08:58] LABS: Anion Gap 11 mmol/L; Blood Urea Nitrogen 11 mg/dL (7-17); Carbon Dioxide 23 mmol/L (22-30); Chloride 110 mmol/L (98-107); Glucose 96 mg/dL (74-99); Magnesium 2.2 mg/dL (1.6-2.3); Non-African American GFR(MDRD) >60 (>60 ml/min/1.73 sqM); Phosphorous 2.1 mg/dL (2.5-4.5); Sodium 144 mmol/L (137-145)
[2016-12-08] MEDS ORDERED: ALPRAZolam 0.25 MG TAB PO SCH (09:00)
[2016-12-08] MEDS: SODIUM PHOSPHATE 10 MMOL in SODIUM CHLORIDE 0.9% 250 ML IVPB SCH ×3 (12:16→16:11)
[2016-12-08] MEDS: FUROSEMIDE 10 MG/ML 4 ML VIAL IV SCH ×2 (12:30→21:44)
--- NOTE | 2016-12-08 12:39 | PN ---
DATE OF SERVICE: 12/08/2016 HISTORY OF PRESENT ILLNESS: Patient is a 61-year-old female, status post gastric bypass for obesity. She had been having some problems with difficulty with breathing and cough and changes were made to her medications yesterday. Patient did not want to try any of the nebulizer treatments ordered, due to having problems with nausea with other nebulizers in the past. Subsequently, she did not take the Perforomist nor did she take Pulmicort. Subsequently, these 2 medications will be stopped and her QVAR will be resumed. It was also noted that her x-ray is showing some fluid volume overload and she will be given 2 doses of IV Lasix today. In addition, it is recommended that her maintenance IV with vitamins be decreased due to this. Patient is encouraged to get out of bed, move around, use her incentive spirometer and flutter therapy. She states that she did have considerable productive cough this a.m. though has been pretty much dry since last examined. She denies any chest pain at this time. She has had no nausea or vomiting at this time. She still does have some tenderness to surgical site though relatively controlled with pain medications. On physical examination, vital signs show temperature of 97.9, heart rate 108, respiratory rate 15, blood pressure is 136/84, oxygen saturation is 95% on 2 L. Labs show WBC is 11.1, hemoglobin 10.4, hematocrit 32.5, platelets are 186, sodium is 144, potassium 4, chloride 110, carbon dioxide 23, BUN 11, creatinine is 0.53. Glucose 96, calcium is 8. Phosphorus is 2.1. Magnesium is 2.2. Chest x-ray from today shows correlate to exclude volume overload with pulmonary venous hypertension and interstitial edema. There may be basilar atelectasis, difficult to exclude airspace disease. Followup suggested. GENERAL: She is a 61-year-old female where she continues with hoarseness to her voice, seems somewhat more tired today. HEENT: Pupils are reactive. Mucous membranes are moist. Neck is short, supple, thick. LUNGS: Sounds remain diminished throughout. CARDIOVASCULAR: S1 and S2 is heard. ABDOMEN: Soft. She has tenderness at incision, David-Jasso drain intact. Extremities with no edema. NEUROLOGIC: She is awake and alert. IMPRESSION: 1. Status post gastric bypass surgery with lysis of adhesions. 2. Acute exacerbation of acute on chronic asthma with chronic obstructive pulmonary disease. 3. Anxiety and depression history. 4. Hypertension. 5. Obstructive sleep apnea. 6. Leukocytosis. 7. Fluid volume overload. PLAN: Will order IV Lasix x2 doses. Will resume her QVAR and stop Pulmicort. Will discontinue Perforomist since she refuses to take any nebulizer treatments. Continue with GI and DVT prophylaxis. Continue with flutter therapy. She would benefit from a repeat chest x-ray, encouraged to cough and deep breathing. Increase activity as tolerated. Would recommend decreasing IV fluids. Will continue to follow patient with you.
[2016-12-08 13:51] LABS: Basophils # (A) 0.1 k/uL (0-0.2); Basophils % (A) 0 %; CH 30.5; Eosinophils # (A) 0.6 k/uL (0-0.7); Eosinophils % (A) 5 %; HCT 37.7 % (34.0-46.0); HDW 2.72; HGB 11.8 gm/dL (11.4-16.0); Luc # (Auto) 0.16; Luc % (Auto) 1; Lymphocytes # (A) 1.4 k/uL (1.0-4.8); Lymphocytes % (A) 11 %; MCH 30.2 pg (25.0-35.0); MCHC 31.3 g/dL (31.0-37.0); MCV 96.2 fL (80.0-100.0); Mean Platelet Volume 8.1; Monocytes # (A) 0.5 k/uL (0-1.0); Monocytes % (A) 4 %; Neutrophils # (A) 9.5 k/uL (1.3-7.7); Neutrophils % (A) 79 %; RBC 3.92 m/uL (3.80-5.40); RDW 13.7 % (11.5-15.5); WBC 12.2 k/uL (3.8-10.6); WBC (Perox) 12.57
--- NOTE | 2016-12-08 14:12 | P.PN ---
Subjective Principal diagnosis: Morbid obesity The patient is post op day #3 s/p takedown of Fercho fundoplasty with gastric bypass. She has been started on Lasix per pulmonary team. Her urinary retention is resolved. She reports "the shakes" from withdrawal from her home medications. Pulmonary team is following her care for COPD. She is tolerating diet. She is ambulating to the restroom. Overall, her strength is improving. She denies any abdominal pain. Objective - Vital Signs Vital signs: Vital Signs Temp 97.9 F 12/08/16 07:00 Pulse 108 H 12/08/16 08:00 Resp 15 12/08/16 08:00 BP 136/84 12/08/16 07:00 Pulse Ox 95 12/08/16 07:41 Intake & Output 12/07/16 12/08/16 12/08/16 18:59 06:59 18:59 Intake Total 1671.2 900 Output Total 1480 645 800 Balance 191.2 255 -800 Intake: IV 800 0.9% NaCl with KCl 20 Meq 800 /l 1,000 ml @ 100 mls/hr IV .BY DURATION DANNY Rx#: [id number] Intake, IV Titration 1371.2 Amount Levofloxacin 500Mg-D5w 100 Pmx 500 mg In Dextrose/ Water 1 100ml.bag @ 100 mls/hr IVPB Q24HR DANNY Rx# :[id number] Mvi, Adult No.4 with Vit 1021.2 K 10 ml Thiamine 100 mg Folic Acid 1 mg Potassium Chloride 20 meq In Sodium Chloride 0.9% 1, 000 ml @ 100 mls/hr IV . BY DURATION DANNY Rx#: [id number] Sodium Phosphate 10 mmol 250 In Sodium Chloride 0.9% 250 ml @ 125 mls/hr IVPB Q2H DANNY Rx#:[id number] Oral 300 100 Output: Drainage 80 120 Left Abdomen 80 120 Urine 1400 525 800 Straight 800 Uretheral (Avalos) 525 Other: Voiding Method Indwelling Catheter Indwelling Catheter Indwelling Catheter - Exam GENERAL: Well developed and in no acute distress. Pleasant. HEENT: No sclera icterus. Extraocular movements grossly intact. Moist buccal mucosa. Head is atraumatic, normocephalic. Hears conversational speech. No nasal drainage. NECK: Supple without lymphadenopathy. No JV distention. CHEST: Non labored respirations and equal bilateral excursions. CARDIOVASCULAR: Tachycardic. Palpable 2+ radial pulses. ABDOMEN: Dressing changed with Aquacell AG antibiotic dressing at bedside. JPs sanguinous. Isela drain site clean dry and intact. No signs of cellulitis seroma or infection. Abdomen otherwise is soft, minimally distended without peritoneal signs. Minimal left upper quadrant abdominal pain. MUSCULOSKELETAL: No clubbing, cyanosis or edema. NEUROLOGIC: No focal or lateralizing signs. PSYCH: Appropriate affect. Alert and oriented to person, place and time. - Labs CBC & Chem 7: 12/08/16 13:34 12/08/16 07:37 Labs: Abnormal Lab Results - Last 24 Hours (Table) 12/08/16 12/08/16 Range/Units 07:37 07:37 WBC 11.1 H (3.8-10.6) k/uL RBC 3.37 L (3.80-5.40) m/uL Hgb 10.4 L (11.4-16.0) gm/dL Hct 32.5 L (34.0-46.0) % Neutrophils # 8.6 H (1.3-7.7) k/uL Chloride 110 H (98-107) mmol/L Calcium 8.0 L (8.4-10.2) mg/dL Phosphorus 2.1 L (2.5-4.5) mg/dL - Imaging and Cardiology Chest x-ray: report reviewed, image reviewed (No pleural effusion) Assessment and Plan (1) Gastroesophageal reflux Status: Chronic (2) Failure of fundoplication Status: Chronic (3) BMI 35.0-35.9,adult Status: Chronic (4) COPD (chronic obstructive pulmonary disease) Status: Chronic (5) Sleep apnea Status: Chronic (6) Hypertension, essential Status: Chronic (7) Gastric bypass status for obesity Status: Acute (8) Hypophosphatemia Status: Acute (9) Withdrawal from benzodiazepine Status: Acute Plan: 1. Continue Flomax for urinary retention. 2. Lasix per pulmonary; however, we will watch closely to avoid dehydration that would be deleterious to her care. 3. Continue Levofloxacin for history of Class III contamintated case. 4. Phosphate supplementation for hypophosphatemia, symptomatic. 5. DVT prophylaxis with SCDs and ambulation 4 times daily. 6. Lovenox discontinued secondary to sanguinous drainage from SHANNAN. 7. Repeat labs for the afternoon including CBC. Symptoms of anemia also reviewed including increased dizziness, tachycardia, and weakness for which she denied at this time. 8. Home healthcare arranged. 9. Resume antidepressants. 10. Continued hospitalization for 24-48 hours. 11. Overall, patient improving in the last 24 hours.
[2016-12-08] MEDS ORDERED: ALBUTEROL INHALER 60 PUFF/8 GM INHALER INHALATION PRN (14:13)
[2016-12-08] MEDS: BUDESONIDE 1 MG/2 ML NEBU INHALATION SCH (19:44)
[2016-12-08] MEDS: SERTRALINE 100 MG TAB PO SCH (21:44)
[2016-12-09] MEDS: METOCLOPRAMIDE 5 MG/ML 2 ML VIAL IVP SCH ×3 (00:52→15:00)
[2016-12-09 07:46] LABS: Basophils % (A) 0 %; CH 30.4; CHCM 32.3; Eosinophils # (A) 0.5 k/uL (0-0.7); Eosinophils % (A) 5 %; HDW 2.74; HGB 10.8 gm/dL (11.4-16.0); Luc # (Auto) 0.15; Luc % (Auto) 2; Lymphocytes # (A) 1.2 k/uL (1.0-4.8); Lymphocytes % (A) 12 %; MCH 29.9 pg (25.0-35.0); MCHC 31.7 g/dL (31.0-37.0); MCV 94.5 fL (80.0-100.0); Mean Platelet Volume 7.3; Monocytes # (A) 0.4 k/uL (0-1.0); Monocytes % (A) 4 %; Neutrophils # (A) 7.7 k/uL (1.3-7.7); Neutrophils % (A) 78 %; RDW 13.7 % (11.5-15.5); WBC 9.9 k/uL (3.8-10.6); WBC (Perox) 10.79
[2016-12-09 07:53] VITALS: BP 129/70; RESP 16; TEMP 97
[2016-12-09 07:54] LABS: Anion Gap 14 mmol/L; Blood Urea Nitrogen 14 mg/dL (7-17); Calcium 8.4 mg/dL (8.4-10.2); Carbon Dioxide 25 mmol/L (22-30); Chloride 105 mmol/L (98-107); Glucose 100 mg/dL (74-99); Magnesium 2.1 mg/dL (1.6-2.3); Non-African American GFR(MDRD) >60 (>60 ml/min/1.73 sqM); Potassium 3.7 mmol/L (3.5-5.1); Sodium 144 mmol/L (137-145)
--- NOTE | 2016-12-09 08:27 | XR ---
EXAMINATION TYPE: XR chest 2V DATE OF EXAM: 12/09/2016 7:14 AM HISTORY: Shortness of breath. COMPARISON: December 08, 2016 TECHNIQUE: Single view of the chest is submitted. FINDINGS: Demonstrated are scattered senescent parenchymal change. There is no evidence for focal infiltrate. The heart is stable. Hilar and mediastinal structures are within normal limits. Tiny effusions versus pleural thickening. Degenerative changes are seen of the dorsal spine. IMPRESSION: 1. Chronic changes without evidence for acute pulmonary disease.
[2016-12-09] MEDS: LEVOFLOXACIN 500MG-D5W PMX 500 MG in DEXTROSE/WATER 1 100ML.BAG IVPB SCH (08:29)
[2016-12-09] MEDS: 1: MVI, ADULT NO.4 WITH VIT K 10 ML, THIAMINE 100 MG, FOLIC ACID 1 MG, POTASSIUM CHLORID IV SCH ×12 (08:33→08:34)
[2016-12-09] MEDS: TAMSULOSIN 0.4 MG CAP.ER.24H PO SCH (08:34)
[2016-12-09] MEDS: PANTOPRAZOLE 40 MG/10 ML VIAL IV SCH (08:35)
[2016-12-09] MEDS: SERTRALINE 50 MG TAB PO SCH (08:35)
[2016-12-09] MEDS: buPROPion SR 150 MG TABLET.ER PO SCH (08:35)
[2016-12-09] MEDS ORDERED: SODIUM CHLORIDE 0.9% 1,000 ML BAG ONE (08:36)
[2016-12-09] MEDS: ALPRAZolam 0.25 MG TAB PO SCH ×2 (08:46→15:00)
[2016-12-09] MEDS: TIOTROPIUM 18 MCG/PUFF INHALER INHALATION SCH (09:15)
[2016-12-09] MEDS: BUDESONIDE 1 MG/2 ML NEBU INHALATION SCH (09:15)
[2016-12-09] MEDS: ALBUTEROL NEBULIZED 2.5 MG/3 ML INHALATION SCH ×3 (09:15→16:40)
[2016-12-09 09:22] VITALS: PULSE 104
[2016-12-09 10:50] LABS: Iron 25 ug/dL (37-170)
[2016-12-09 11:01] LABS: % Iron Saturation 9.5 % (20-50); Total Iron Binding Capacity 264 ug/dL (265-497)
--- NOTE | 2016-12-09 12:45 | P.PN ---
Subjective Principal diagnosis: Acute exacerbation of asthma Patient seen and examined. Patient states her breathing is much better. She used Pulmicort this morning and states that helps her a lot. She is currently on 2 L nasal cannula with an O2 saturation 99%. She is hoping to go home soon. Objective - Vital Signs Vital signs: Vital Signs Temp 97.0 F L 12/09/16 07:00 Pulse 104 H 12/09/16 09:26 Resp 16 12/09/16 07:00 BP 129/70 12/09/16 07:00 Pulse Ox 98 12/09/16 09:16 Intake & Output 12/08/16 12/09/16 12/09/16 18:59 06:59 18:59 Intake Total 1021.2 1000 1261.2 Output Total 800 50 Balance 221.2 950 1261.2 Weight 104.553 kg Intake: IV 1000 0.9% NaCl with KCl 20 Meq 1000 /l 1,000 ml @ 100 mls/hr IV .BY DURATION DANNY Rx#: [id number] Intake, IV Titration 1021.2 1021.2 Amount Mvi, Adult No.4 with Vit 1021.2 1021.2 K 10 ml Thiamine 100 mg Folic Acid 1 mg Potassium Chloride 20 meq In Sodium Chloride 0.9% 1, 000 ml @ 100 mls/hr IV . BY DURATION DANNY Rx#: [id number] Oral 240 Output: Drainage 50 Left Abdomen 50 Urine 800 Straight 800 Other: Voiding Method Indwelling Catheter Indwelling Catheter # Voids 3 - Exam Gen.: Patient is alert and oriented 3, no acute distress Cardiovascular: Regular rate and rhythm, S1/S2 Lungs: Clear to auscultation bilaterally no wheezes rales or rhonchi Abdomen: Soft nontender nondistended positive bowel sounds Extremities: No edema - Labs CBC & Chem 7: 12/09/16 07:20 12/09/16 07:24 Labs: Abnormal Lab Results - Last 24 Hours (Table) 12/08/16 12/09/16 12/09/16 Range/Units 13:34 07:20 07:24 WBC 12.2 H (3.8-10.6) k/uL RBC 3.60 L (3.80-5.40) m/uL Hgb 10.8 L (11.4-16.0) gm/dL Neutrophils # 9.5 H (1.3-7.7) k/uL Glucose 100 H (74-99) mg/dL Iron 25 L (37-170) ug/dL TIBC 264 L (265-497) ug/dL % Saturation 9.5 L (20-50) % Assessment and Plan Plan: Acute hypoxemia Acute exacerbation of asthma/COPD, severe persistent Obstructive sleep apnea on CPAP Component of fluid overload, now resolved Hypertension Status post gastric bypass Obesity GERD O2 to maintain saturation greater than or equal to 88% Ambulatory pulse ox prior to discharge Continue home breathing treatments No need for further Lasix Incentive spirometry and pulmonary hygiene CPAP use nightly
--- NOTE | 2016-12-09 13:06 | P.PN ---
Subjective Principal diagnosis: Morbid obesity The patient is post op day #4 s/p takedown of Fercho fundoplasty with gastric bypass. She denies dyspnea. She is passing flatus. No reports of abdominal pain. Objective - Vital Signs Vital signs: Vital Signs Temp 97.0 F L 12/09/16 07:00 Pulse 104 H 12/09/16 09:26 Resp 16 12/09/16 07:00 BP 129/70 12/09/16 07:00 Pulse Ox 98 12/09/16 09:16 Intake & Output 12/08/16 12/09/16 12/09/16 18:59 06:59 18:59 Intake Total 1021.2 1000 1261.2 Output Total 800 50 Balance 221.2 950 1261.2 Weight 104.553 kg Intake: IV 1000 0.9% NaCl with KCl 20 Meq 1000 /l 1,000 ml @ 100 mls/hr IV .BY DURATION DANNY Rx#: [id number] Intake, IV Titration 1021.2 1021.2 Amount Mvi, Adult No.4 with Vit 1021.2 1021.2 K 10 ml Thiamine 100 mg Folic Acid 1 mg Potassium Chloride 20 meq In Sodium Chloride 0.9% 1, 000 ml @ 100 mls/hr IV . BY DURATION DANNY Rx#: [id number] Oral 240 Output: Drainage 50 Left Abdomen 50 Urine 800 Straight 800 Other: Voiding Method Indwelling Catheter Indwelling Catheter # Voids 3 - Exam GENERAL: Well developed and in no acute distress. Pleasant. HEENT: No sclera icterus. Extraocular movements grossly intact. Moist buccal mucosa. Head is atraumatic, normocephalic. Hears conversational speech. No nasal drainage. NECK: Supple without lymphadenopathy. No JV distention. CHEST: Non labored respirations and equal bilateral excursions. CARDIOVASCULAR: Tachycardic. Palpable 2+ radial pulses. ABDOMEN: Mild ecchymosis along the left upper quadrant. No peritonitis. Soft nondistended. MUSCULOSKELETAL: No clubbing, cyanosis or edema. NEUROLOGIC: No focal or lateralizing signs. PSYCH: Appropriate affect. Alert and oriented to person, place and time. - Labs CBC & Chem 7: 12/09/16 07:20 12/09/16 07:24 Labs: Abnormal Lab Results - Last 24 Hours (Table) 12/08/16 12/09/16 12/09/16 Range/Units 13:34 07:20 07:24 WBC 12.2 H (3.8-10.6) k/uL RBC 3.60 L (3.80-5.40) m/uL Hgb 10.8 L (11.4-16.0) gm/dL Neutrophils # 9.5 H (1.3-7.7) k/uL Glucose 100 H (74-99) mg/dL Iron 25 L (37-170) ug/dL TIBC 264 L (265-497) ug/dL % Saturation 9.5 L (20-50) % Assessment and Plan (1) Gastroesophageal reflux Status: Chronic (2) Failure of fundoplication Status: Chronic (3) BMI 35.0-35.9,adult Status: Chronic (4) COPD (chronic obstructive pulmonary disease) Status: Chronic (5) Sleep apnea Status: Chronic (6) Hypertension, essential Status: Chronic (7) Gastric bypass status for obesity Status: Acute (8) Hypophosphatemia Status: Acute (9) Withdrawal from benzodiazepine Status: Acute Plan: 1. Clinically she is doing well. May be discharged home with home healthcare. 2. Flomax for home. 3. Discharge instructions were verbalized.
--- NOTE | 2017-02-01 10:20 | PN ---
DATE OF SERVICE: 01/01/2017 CHIEF COMPLAINT: Follow up gastric bypass at the bariatric center. HISTORY OF PRESENT ILLNESS: Irene Kinney is a 61-year-old female who is a revision from Fercho fundoplasty to a Da-en-Y gastric bypass on 12/05/2016. She is now 1 month out. She has lost 38 pounds in approximately a month. Body mass index is reduced from 38.5 down to 32.6. Her highest weight was 249 pounds for her 5 feet 7-1/2-inch frame. Her ideal body weight is 158 pounds. Today she comes in weighing 211 pounds. Total weight loss as of recent is 13 pounds since her last visit barely 2 to 3 weeks ago. Percent excess weight loss is now up to 42%. She reports complete resolution of her gastroesophageal reflux disease. She does report developing bronchitis for a history of chronic obstructive pulmonary disease and has been placed on transient steroids per her primary care doctor, however. She also reports needing adjustments for her sleep apnea. PHYSICAL EXAM: VITAL SIGNS: 97.9, 100, 16, 120/59, 5 feet 7-1/2 inches, 211 pounds. Body mass index 32.6. ABDOMEN: Soft, nontender. No palpable incisional hernia. GENERAL: Well-developed female, no acute distress. HEENT: No scleral icterus. Extraocular movements grossly intact. Moist buccal mucosa. NECK: Supple without lymphadenopathy. CHEST: Nonlabored respirations. Equal bilateral excursions. CARDIOVASCULAR: Tachycardic. 2+ pulses. MUSCULOSKELETAL: No clubbing, cyanosis, or edema. NEURO: No focal or lateralizing signs. PSYCH: Appropriate affect. Alert and oriented to person, place, and time. LABS: Recent labs reviewed, demonstrating electrolytes within normal limits. ASSESSMENT: 1. Morbid obesity due to excess calories. 2. Body mass index reduction from 38.5 down to 32.6. 3. Status post revision from Fercho fundoplasty to Da-En-Y gastric bypass. 4. Gastroesophageal reflux disease, resolved. 5. COPD exacerbation. 6. Baseline history of anxiety disorder. 7. Obstructive sleep apnea. PLAN: 1. She has COPD exacerbation which is managed by her primary care doctor. 2. I recommend continuing omeprazole in the interim. 3. I do agree with adjustment of her CPAP machine. 4. As she is revisional surgery, I have asked for close supervision at least on a weekly basis until she has passed her 6 weeks postop. AMBER
== END 2016-12-09 17:54 | disposition home health service (06) | DRG 620 ==
LOC: 2ORWHC 09:36 → 3SUR 15:18
PROVIDERS: ADMIT Surgery Plastic and Reconstructive Surgery; ATTEND Surgery Plastic and Reconstructive Surgery
PROC: 0DQ44ZZ Repair Esophagogastric Junction, Percutaneous Endoscopic Approach (ICD-10-PCS; principal; 2016-12-05 11:00)
PROC: 0D164ZA Bypass Stomach to Jejunum, Percutaneous Endoscopic Approach (ICD-10-PCS; principal; 2016-12-05 11:00)
PROC: 0D1A4Z4 Bypass Jejunum to Cutaneous, Percutaneous Endoscopic Approach (ICD-10-PCS; principal; 2016-12-05 11:00)
PROC: 0DN64ZZ Release Stomach, Percutaneous Endoscopic Approach (ICD-10-PCS; principal; 2016-12-05 11:00)
DX: E66.01 Morbid (severe) obesity due to excess calories (principal); J44.1 Chronic obstructive pulmonary disease with (acute) exacerbation; I11.9 Hypertensive heart disease without heart failure; J45.901 Unspecified asthma with (acute) exacerbation; K56.7 Ileus, unspecified; E83.39 Other disorders of phosphorus metabolism; F13.239 Sedative, hypnotic or anxiolytic dependence with withdrawal, unspecified; E87.70 Fluid overload, unspecified; K21.9 Gastro-esophageal reflux disease without esophagitis; E78.5 Hyperlipidemia, unspecified; D72.829 Elevated white blood cell count, unspecified; F41.8 Other specified anxiety disorders; G47.33 Obstructive sleep apnea (adult) (pediatric); M47.9 Spondylosis, unspecified; Z68.36 Body mass index [BMI] 36.0-36.9, adult; Z79.82 Long term (current) use of aspirin; Z82.49 Family history of ischemic heart disease and other diseases of the circulatory system; Z85.828 Personal history of other malignant neoplasm of skin; Z87.891 Personal history of nicotine dependence; Z88.1 Allergy status to other antibiotic agents; Z79.899 Other long term (current) drug therapy; R16.0 Hepatomegaly, not elsewhere classified
CPT/HCPCS: 71020; 80048; 80051; 82310; 82565; 82728; 83540; 83550; 83735; 84100; 84520; 85025; 92950; 94640; 94667; 94760; 94762

== ENCOUNTER → 2016-12-12 | Outpatient (CLI) | payer MEDICARE, BC ==
[2016-12-12 10:34] VITALS: BP 113/51; PULSE 107; RESP 18; TEMP 97.4; BMI 34.6
[2016-12-12 11:33] LABS: Basophils % (A) 0 %; CH 29.9; CHCM 32.2; Eosinophils # (A) 0.5 k/uL (0-0.7); Eosinophils % (A) 4 %; HCT 38.4 % (34.0-46.0); HDW 2.92; HGB 12.2 gm/dL (11.4-16.0); Luc # (Auto) 0.24; Luc % (Auto) 2; Lymphocytes # (A) 1.8 k/uL (1.0-4.8); Lymphocytes % (A) 14 %; MCH 29.6 pg (25.0-35.0); MCHC 31.7 g/dL (31.0-37.0); MCV 93.2 fL (80.0-100.0); Mean Platelet Volume 7.4; Monocytes # (A) 0.7 k/uL (0-1.0); Monocytes % (A) 5 %; Neutrophils # (A) 9.4 k/uL (1.3-7.7); Neutrophils % (A) 75 %; RBC 4.12 m/uL (3.80-5.40); RDW 13.5 % (11.5-15.5); WBC 12.7 k/uL (3.8-10.6); WBC (Perox) 13.78
--- NOTE | 2017-01-20 13:57 | PN ---
DATE OF SERVICE: 12/12/2016. CHIEF COMPLAINT: Follow-up gastric bypass. HISTORY OF PRESENT ILLNESS: Irene Kinney is a 61-year-old female who is status post revision from a Fercho fundoplasty to a Da-en-Y gastric bypass on 12/05/2016. She is one week out. She reports intermittent feeling of weakness and tingling. No reports of abdominal pain, however. She has home health care. At her height of 5 feet 7-1/2 inches, her highest weight was 249 pounds. Loving body weight is 158 pounds. Today she comes in weighing 224 pounds. She has already lost 25 pounds in the past month. Percent excess weight loss is 28%. Body mass index reduced at 38.5 down to 34.6. She is 66 pounds overweight. PHYSICAL EXAM: VITAL SIGNS: 97.4, 107, 18, 113/51, 5 foot 7 224 pounds. Body mass is 34.6. ABDOMEN: Soft, nondistended. No signs of infection. Drains were discontinued. Dressings were changed. GENERAL: Well-developed female, no acute distress. HEENT: No scleral icterus. Extraocular movements grossly intact. Moist buccal mucosa. NECK: Supple without lymphadenopathy. CHEST: Nonlabored respirations. Equal bilateral excursions. CARDIOVASCULAR: Tachycardic. 2+ pulses. MUSCULOSKELETAL: No clubbing, cyanosis, or edema. NEURO: No focal or lateralizing signs. PSYCH: Appropriate affect. Alert and oriented to person, place, and time. ASSESSMENT: 1. Morbid obesity due to excess calories. 2. Body mass index is reduced from 38.5 down to 34.6. 3. Status post revision from Fercho fundoplasty to Da-En-Y gastric bypass. 4. Baseline history of anxiety disorder. PLAN: 1. Clinically, she denies any abdominal pain and is tolerating liquids. 2. Apart from a history of anxiety there are no clinical features consistent with leak. 3. Recommend repeat CBC. 4. Recommend close evaluation and management as she is revision from Fercho fundoplasty to Da-en-Y gastric bypass. ADDENDUM: LABS: Reviewed. White blood cell count elevated at 12.7, up from 9.9. She reports following up with primary care provider as well. [facility]
== END | disposition home or self-care (01) ==
LOC: BARWHC3 10:14
PROVIDERS: ATTEND Surgery Plastic and Reconstructive Surgery
DX: Z48.815 Encounter for surgical aftercare following surgery on the digestive system (principal); E66.01 Morbid (severe) obesity due to excess calories; Z71.3 Dietary counseling and surveillance; Z68.34 Body mass index [BMI] 34.0-34.9, adult
CPT/HCPCS: 85025; 97803; G0463; 99211

== ENCOUNTER → 2017-01-01 | Outpatient (CLI) | payer MEDICARE, BC ==
[2017-01-01 14:22] VITALS: BP 120/59; PULSE 100; RESP 16; TEMP 97.9; BMI 32.5
--- NOTE | 2017-02-06 02:49 | P.PN ---
Progress Note - Text DATE OF SERVICE: 01/01/2017 CHIEF COMPLAINT: Follow up gastric bypass. HISTORY OF PRESENT ILLNESS: Irene Kinney is a 61-year-old female who is a revision from Fercho fundoplasty to a Da-en-Y gastric bypass on 12/05/2016. She is now 1 month out. She has lost 38 pounds in approximately a month. Body mass index is reduced from 38.5 down to 32.6. Her highest weight was 249 pounds for her 5 feet 7-1/2-inch frame. Her ideal body weight is 158 pounds. Today she comes in weighing 211 pounds. Total weight loss as of recent is 13 pounds since her last visit barely 2 to 3 weeks ago. Percent excess weight loss is now up to 42%. She reports complete resolution of her gastroesophageal reflux disease. She does report developing bronchitis for a history of chronic obstructive pulmonary disease and has been placed on transient steroids per her primary care doctor, however. She also reports needing adjustments for her sleep apnea. PHYSICAL EXAM: VITAL SIGNS: 97.9, 100, 16, 120/59, 5 feet 7-1/2 inches, 211 pounds. Body mass index 32.6. ABDOMEN: Soft, nontender. No palpable incisional hernia. GENERAL: Well-developed female, no acute distress. HEENT: No scleral icterus. Extraocular movements grossly intact. Moist buccal mucosa. NECK: Supple without lymphadenopathy. CHEST: Nonlabored respirations. Equal bilateral excursions. CARDIOVASCULAR: Tachycardic. 2+ pulses. MUSCULOSKELETAL: No clubbing, cyanosis, or edema. NEURO: No focal or lateralizing signs. PSYCH: Appropriate affect. Alert and oriented to person, place, and time. LABS: Recent labs reviewed, demonstrating electrolytes within normal limits. ASSESSMENT: 1. Morbid obesity due to excess calories. 2. Body mass index reduction from 38.5 down to 32.6. 3. Status post revision from Fercho fundoplasty to Da-En-Y gastric bypass. 4. Gastroesophageal reflux disease, resolved. 5. COPD exacerbation. 6. Baseline history of anxiety disorder. 7. Obstructive sleep apnea. PLAN: 1. She has COPD exacerbation which is managed by her primary care doctor. 2. I recommend continuing omeprazole in the interim. 3. I do agree with adjustment of her CPAP machine. 4. As she is revisional surgery, I have asked for close supervision at least on a weekly basis until she has passed her 6 weeks postop.
== END | disposition home or self-care (01) ==
LOC: BARWHC3 13:45
PROVIDERS: ATTEND Surgery Plastic and Reconstructive Surgery
DX: Z48.815 Encounter for surgical aftercare following surgery on the digestive system (principal); E66.01 Morbid (severe) obesity due to excess calories; Z68.32 Body mass index [BMI] 32.0-32.9, adult; Z71.3 Dietary counseling and surveillance; J44.1 Chronic obstructive pulmonary disease with (acute) exacerbation; J45.901 Unspecified asthma with (acute) exacerbation; F41.9 Anxiety disorder, unspecified; G47.33 Obstructive sleep apnea (adult) (pediatric); R00.0 Tachycardia, unspecified; Z98.84 Bariatric surgery status
CPT/HCPCS: 97803; G0463; 99211

== ENCOUNTER 2017-01-31 17:14 | Inpatient (IN) | payer MEDICARE, BC ==
[2017-01-31] MEDS ORDERED: SIMETHICONE 40 MG/0.6 ML DROPS 2,000 MG/30 ML BOTTLE PO PRN (17:15)
[2017-01-31] MEDS ORDERED: HYDROmorphone 1 MG/ML 1 ML SYRINGE IVP PRN (17:15)
[2017-01-31] MEDS ORDERED: NALOXONE 0.4 MG/ML 1 ML VIAL IV PRN (17:15)
[2017-01-31] MEDS ORDERED: diphenhydrAMINE 50 MG/ML 1 ML VIAL IVP PRN (17:15)
[2017-01-31] MEDS ORDERED: HYOSCYAMINE ORAL DROPS 1.875 MG/15 ML BOTTLE PO PRN (17:15)
--- NOTE | 2017-01-31 17:24 | P.PN ---
Progress Note - Text Patient reports dysphagia, history of esophageal obstruction, unable to tolerate fluids, she went to [facility] with CT scan completed. Patient being admitted for treatment.
[2017-01-31] MEDS ORDERED: IOHEXOL 350 MG/ML 25 ML BOTTLE (ORAL USE) PO PRN (20:29)
[2017-01-31] MEDS ORDERED: RX INFO: IV CONTRAST WAS GIVEN 1 EACH MISC MISCELLANE PRN (20:29)
[2017-01-31] MEDS: 0.9% NACL WITH KCL 20 MEQ/L 1,000 ML IV SCH (21:10)
[2017-01-31] MEDS: ONDANSETRON 4 MG/2 ML VIAL IVP PRN (21:10)
[2017-01-31 21:20] LABS: ALT 61 U/L (9-52); AST 51 U/L (14-36); Alkaline Phosphatase 143 U/L (38-126); Anion Gap 16 mmol/L; Blood Urea Nitrogen 10 mg/dL (7-17); Calcium 9.6 mg/dL (8.4-10.2); Carbon Dioxide 19 mmol/L (22-30); Chloride 108 mmol/L (98-107); Glucose 154 mg/dL (74-99); Magnesium 1.9 mg/dL (1.6-2.3); Non-African American GFR(MDRD) >60 (>60 ml/min/1.73 sqM); Phosphorous 1.7 mg/dL (2.5-4.5); Potassium 3.5 mmol/L (3.5-5.1); Sodium 143 mmol/L (137-145); Total Bilirubin 0.7 mg/dL (0.2-1.3); Total Protein 7.4 g/dL (6.3-8.2)
[2017-01-31 21:28] LABS: Basophils % (A) 1 %; CH 30.3; CHCM 33.7; Eosinophils % (A) 0 %; HCT 44.7 % (34.0-46.0); HDW 2.84; HGB 14.9 gm/dL (11.4-16.0); Luc # (Auto) 0.09; Luc % (Auto) 1; Lymphocytes % (A) 13 %; MCHC 33.3 g/dL (31.0-37.0); MCV 90.3 fL (80.0-100.0); Mean Platelet Volume 7.7; Monocytes # (A) 0.2 k/uL (0-1.0); Monocytes % (A) 3 %; Neutrophils # (A) 6.6 k/uL (1.3-7.7); Neutrophils % (A) 83 %; RBC 4.95 m/uL (3.80-5.40); RDW 14.1 % (11.5-15.5); WBC 7.9 k/uL (3.8-10.6); WBC (Perox) 7.96
[2017-01-31] MEDS ORDERED: SCOPOLAMINE 1.5MG/72HR PATCH TRANSDERM STA (21:36)
[2017-01-31] MEDS ORDERED: DEXAMETHASONE SOD PHOSPHATE 10 MG/ML 1 ML VIAL IV STA (21:36)
[2017-01-31] MEDS: SODIUM CHLORIDE 0.9% 1,000 ML IV SCH (21:53)
[2017-01-31] MEDS: ALBUTEROL NEBULIZED 2.5 MG/3 ML INHALATION SCH (22:00)
[2017-01-31] MEDS: MAGNESIUM SULFATE-D5W PMX 1 GM in DEXTROSE/WATER 1 100ML.BAG IVPB SCH (22:53)
[2017-01-31] MEDS: METOCLOPRAMIDE 5 MG/ML 2 ML VIAL IVP SCH (23:40)
[2017-02-01] MEDS: POTASSIUM PHOSPHATE 10 MMOL in SODIUM CHLORIDE 0.9% 250 ML IV SCH ×3 (00:02→08:48)
[2017-02-01] MEDS: SODIUM CHLORIDE 0.9% 1,000 ML IV SCH ×2 (02:00→04:16)
[2017-02-01] MEDS: ONDANSETRON 4 MG/2 ML VIAL IVP PRN ×2 (02:00→08:17)
[2017-02-01] MEDS: MAGNESIUM SULFATE-D5W PMX 1 GM in DEXTROSE/WATER 1 100ML.BAG IVPB SCH (04:32)
[2017-02-01] MEDS: METOCLOPRAMIDE 5 MG/ML 2 ML VIAL IVP SCH ×3 (05:44→18:31)
[2017-02-01] MEDS: 0.9% NACL WITH KCL 20 MEQ/L 1,000 ML IV SCH ×2 (05:59→17:30)
[2017-02-01 07:04] LABS: Basophils % (A) 0 %; CH 29.7; CHCM 32.2; Eosinophils % (A) 0 %; HCT 55.9 % (34.0-46.0); HDW 2.67; HGB 17.6 gm/dL (11.4-16.0); Luc # (Auto) 0.09; Luc % (Auto) 1; Lymphocytes # (A) 1.2 k/uL (1.0-4.8); Lymphocytes % (A) 9 %; MCH 29.2 pg (25.0-35.0); MCHC 31.5 g/dL (31.0-37.0); MCV 92.6 fL (80.0-100.0); Mean Platelet Volume 7.9; Monocytes # (A) 0.5 k/uL (0-1.0); Monocytes % (A) 3 %; Neutrophils # (A) 12.2 k/uL (1.3-7.7); Neutrophils % (A) 87 %; RBC 6.03 m/uL (3.80-5.40); RDW 14.7 % (11.5-15.5); WBC 14.1 k/uL (3.8-10.6); WBC (Perox) 13.63
[2017-02-01 07:25] LABS: ALT 46 U/L (9-52); AST 38 U/L (14-36); Alkaline Phosphatase 135 U/L (38-126); Anion Gap 15 mmol/L; Blood Urea Nitrogen 7 mg/dL (7-17); Calcium 8.5 mg/dL (8.4-10.2); Carbon Dioxide 22 mmol/L (22-30); Chloride 104 mmol/L (98-107); Glucose 154 mg/dL (74-99); Magnesium 2.3 mg/dL (1.6-2.3); Non-African American GFR(MDRD) >60 (>60 ml/min/1.73 sqM); Phosphorous 3.8 mg/dL (2.5-4.5); Sodium 141 mmol/L (137-145); Total Bilirubin 0.8 mg/dL (0.2-1.3); Total Protein 7.5 g/dL (6.3-8.2)
[2017-02-01] MEDS: ENOXAPARIN 40 MG/0.4 ML SYRINGE SQ SCH (08:48)
[2017-02-01] MEDS: PANTOPRAZOLE 40 MG/10 ML VIAL IV SCH (08:48)
[2017-02-01] MEDS: ALBUTEROL NEBULIZED 2.5 MG/3 ML INHALATION SCH ×4 (08:53→21:05)
--- NOTE | 2017-02-01 11:06 | CT ---
EXAMINATION TYPE: CT abdomen pelvis w con DATE OF EXAM: 02/01/2017 9:08 AM COMPARISON: NONE HISTORY: Nausea and vomiting, obstruction CT DLP: 1588.0 mGycm Automated exposure control for dose reduction was used. TECHNIQUE: Helical acquisition of images was performed from the lung bases through the pelvis. CONTRAST: Performed without Oral Contrast and with IV Contrast, patient injected with 100 mL of Omnipaque 300. FINDINGS: LUNG BASES: No significant abnormality is appreciated. Minimal basilar atelectasis. There is a small hiatal hernia or possibly thickening of the distal esophagus. LIVER/GB: The liver is enlarged and shows low attenuation. Gallbladder is not seen. Patient is post c holecystectomy. Small amount of fluid present around the liver, focal low-attenuation within the left lobe measures 6 to 7 mm and may represent a small cyst. PANCREAS: No significant abnormality is seen. SPLEEN: No significant abnormality is seen. ADRENALS: No significant abnormality is seen. KIDNEYS: Retroaortic left renal vein is noted. RETROPERITONEAL ADENOPATHY: None visualized REPRODUCTIVE ORGANS: No significant abnormality is seen URINARY BLADDER: No significant abnormality is seen. PELVIC ADENOPATHY: None visualized. OSSEOUS STRUCTURES: Degenerative disc changes are present in the lower lumbar spine. BOWEL: The stomach is fluid-filled, postop changes are noted. Duodenum is also dilated and fluid-damian led, there is periduodenal inflammatory change. There is wall thickening. Within the jejunum there ar e surgical sutures present. There is apparent narrowing at this level. There are dilated and fluid-fi lled loops of bowel distal to this level however more distal bowel loops within the ileum are decompr essed and are not dilated. The colon is within normal limits. OTHER: There is free fluid within the abdomen. IMPRESSION: FINDINGS ARE SUSPICIOUS FOR SMALL BOWEL OBSTRUCTION, CORRELATE. PATIENT UNABLE TO CONSUME THE ORAL CO NTRAST. REPORT CALLED TO Ta RESENDIZ TELEPHONICALLY AT THE TIME OF INTERPRETATION OF THE EXAM.
[2017-02-01] MEDS ORDERED: ALBUTEROL NEBULIZED 2.5 MG/3 ML INHALATION PRN (12:18)
[2017-02-01] MEDS: ALPRAZolam 0.5 MG TAB PO SCH ×2 (14:40→21:02)
[2017-02-01] MEDS: SERTRALINE 50 MG TAB PO SCH (14:40)
[2017-02-01] MEDS: TAMSULOSIN 0.4 MG CAP.ER.24H PO SCH (14:41)
[2017-02-01] MEDS: buPROPion SR 150 MG TABLET.ER PO SCH ×2 (14:41→21:04)
[2017-02-01] MEDS: CALCIUM CARB-VIT D 500MG-200UN 1 EACH TAB PO SCH (14:41)
--- NOTE | 2017-02-01 14:44 | P.GSHP ---
History of Present Illness H&P Date: 02/01/17 Chief Complaint: Nausea and abdominal pain A 61-year-old female who presented with ongoing history of nausea. This is been going on for the past week or so she's not tolerated a lot of liquids she' s not had any bowel movement she's not complaining any abdominal pain at this time. She has intractable nausea. She had a gastric bypass done after Maverick fundoplication. [facility] There is no hematemesis hematochezia or melena. She is ambulating without any pain or discomfort at this time. She is not feeling hungry but she's feeling significantly better since yesterday. - Constitutional Constitutional: Reports anorexia, Reports poor appetite - EENT Eyes: denies blurred vision, denies pain - Cardiovascular Cardiovascular: Denies chest pain, Denies dyspnea on exertion, Denies edema, Denies shortness of breath - Respiratory Respiratory: Denies cough, Denies 7 - Gastrointestinal Gastrointestinal: Reports as per HPI Past Medical History Past Medical History: Cancer, COPD, GERD/Reflux, Hyperlipidemia, Respiratory Disorder, Sleep Apnea/CPAP/BIPAP Additional Past Medical History / Comment(s): chronic bronchitis recently was on abx, varicose veins, hx ulcers, hx skin cancer, uses C-Pap machine.had pne vaccine few years ago but not sure of date/office closed at time of admit. History of Any Multi-Drug Resistant Organisms: None Reported Past Surgical History: Bariatric Surgery, Cholecystectomy, Tubal Ligation Additional Past Surgical History / Comment(s): maverick fundoplication and Gastric bypass Da-en-y 12/05/16-pt stated "has lost 35# since sx". egd/dilation Past Anesthesia/Blood Transfusion Reactions: No Reported Reaction Past Psychological History: Anxiety, Depression Additional Psychological History / Comment(s): pt stated she feels well maintained on her current meds. no thoughts of wanting to harm self. pt lives with her and 1 son -no pets. lives in a single level home that has 5-6 steps into home. receives no outside services. has a cpap machine. 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 Smoking Status: Former smoker Past Alcohol Use History: Rare Additional Past Alcohol Use History / Comment(s): QUIT SMOKING NOV 2013. SMOKED UP TO 2 1/2 PPD. STARTED SMOKING AGE 15. Past Drug Use History: None Reported - Past Family History Mother Family Medical History: Hypertension Father Family Medical History: No Reported History Additional Family Medical History / Comment(s): mom had hypertension. Medications and Allergies Home Medications Medication Instructions Recorded Confirmed Type ALPRAZolam 1 mg PO HS 05/22/16 01/31/17 History Albuterol Sulfate [Proventil Hfa] 2 puff INHALATION RT-TID PRN 05/22/16 History Esomeprazole Magnesium [NexIUM] 40 mg PO DAILY 05/22/16 01/31/17 History Sertraline HCl [Zoloft] 50 mg PO QAM 05/22/16 01/31/17 History Sertraline HCl [Zoloft] 100 mg PO HS 05/22/16 01/31/17 History Tiotropium Roxie [Spiriva] 1 cap INHALATION RT-HS 05/22/16 01/31/17 History buPROPion SR [Wellbutrin Sr] 150 mg PO BID 05/22/16 01/31/17 History Ca/D3/Mag#11/Zinc/Rug Receiving Clerk/Juan/Bor 2 tab PO DAILY 01/21/17 01/31/17 History [Caltrate 600+D Plus Tablet] Multivitamin [Multivitamins Adult 1 tab PO HS 01/21/17 01/31/17 History Gummies] ALPRAZolam [Xanax] 0.5 mg PO QAM 01/31/17 01/31/17 History Allergies Allergy/AdvReac Type Severity Reaction Status Date / Time erythromycin base AdvReac Diarrhea Verified 01/31/17 21:17 Surgical - Exam Vital Signs Temp Pulse Resp BP Pulse Ox 97.8 F 96 18 158/86 98 01/31/17 20:30 01/31/17 20:30 01/31/17 20:30 01/31/17 20:30 01/31/17 20:30 - General well developed, well nourished, no distress - Eyes PERRL, normal ocular movement, no icteric, no deviation, no loss of movement - ENT normal pinna, normal nares, no hearing loss - Neck trachea midline - Respiratory normal expansion, normal respiratory effort - Cardiovascular Rhythm: regular - Abdomen Abdomen: soft, non tender, no tender, no organomegaly, surgical scars, no wound , no masses, no guarding, no rigid, no rebound, no distended - Integumentary no rash, no growths, no abnormal pigmentation - Neurologic normal coordination - Musculoskeletal normal gait, normal posture - Psychiatric oriented to time, oriented to person, oriented to place, speech is normal, memory intact Results - Labs 02/01/17 06:39 02/01/17 06:39 Abnormal Lab Results - Last 24 Hours (Table) 01/31/17 02/01/17 02/01/17 Range/Units 20:47 06:39 06:39 WBC 14.1 H (3.8-10.6) k/uL RBC 6.03 H (3.80-5.40) m/uL Hgb 17.6 H (11.4-16.0) gm/dL Hct 55.9 H (34.0-46.0) % Neutrophils # 12.2 H (1.3-7.7) k/uL Chloride 108 H (98-107) mmol/L Carbon Dioxide 19 L (22-30) mmol/L Glucose 154 H 154 H (74-99) mg/dL Phosphorus 1.7 L (2.5-4.5) mg/dL AST 51 H 38 H (14-36) U/L ALT 61 H (9-52) U/L Alkaline Phosphatase 143 H 135 H (38-126) U/L Diabetes panel 01/31/17 02/01/17 Range/Units 20:47 06:39 Sodium 143 141 (137-145) mmol/L Potassium 3.5 4.0 (3.5-5.1) mmol/L Chloride 108 H 104 (98-107) mmol/L Carbon Dioxide 19 L 22 (22-30) mmol/L BUN 10 7 (7-17) mg/dL Creatinine 0.60 0.55 (0.52-1.04) mg/dL Glucose 154 H 154 H (74-99) mg/dL Calcium 9.6 8.5 (8.4-10.2) mg/dL AST 51 H 38 H (14-36) U/L ALT 61 H 46 (9-52) U/L Alkaline Phosphatase 143 H 135 H (38-126) U/L Total Protein 7.4 7.5 (6.3-8.2) g/dL Albumin 4.4 4.3 (3.5-5.0) g/dL Calcium panel 01/31/17 02/01/17 Range/Units 20:47 06:39 Calcium 9.6 8.5 (8.4-10.2) mg/dL Phosphorus 1.7 L 3.8 (2.5-4.5) mg/dL Albumin 4.4 4.3 (3.5-5.0) g/dL Pituitary panel 01/31/17 02/01/17 Range/Units 20:47 06:39 Sodium 143 141 (137-145) mmol/L Potassium 3.5 4.0 (3.5-5.1) mmol/L Chloride 108 H 104 (98-107) mmol/L Carbon Dioxide 19 L 22 (22-30) mmol/L BUN 10 7 (7-17) mg/dL Creatinine 0.60 0.55 (0.52-1.04) mg/dL Glucose 154 H 154 H (74-99) mg/dL Calcium 9.6 8.5 (8.4-10.2) mg/dL Adrenal panel 01/31/17 02/01/17 Range/Units 20:47 06:39 Sodium 143 141 (137-145) mmol/L Potassium 3.5 4.0 (3.5-5.1) mmol/L Chloride 108 H 104 (98-107) mmol/L Carbon Dioxide 19 L 22 (22-30) mmol/L BUN 10 7 (7-17) mg/dL Creatinine 0.60 0.55 (0.52-1.04) mg/dL Glucose 154 H 154 H (74-99) mg/dL Calcium 9.6 8.5 (8.4-10.2) mg/dL Total Bilirubin 0.7 0.8 (0.2-1.3) mg/dL AST 51 H 38 H (14-36) U/L ALT 61 H 46 (9-52) U/L Alkaline Phosphatase 143 H 135 H (38-126) U/L Total Protein 7.4 7.5 (6.3-8.2) g/dL Albumin 4.4 4.3 (3.5-5.0) g/dL - Imaging CT scan - abdomen: pending, report reviewed CT scan - pelvis: pending, report reviewed Assessment and Plan Plan: Patient 61-year-old female who is a gastric bypass in about 2 months ago Patient's medical problems include \\ #1 nausea #2 history of gases visual reflux with failure fundoplication #3 COPD 4- Sleep apnea 5- Hypertension 6- history of hiatal hernia 7 hepatomegaly 8-ileus 9- Anxiety and depression This morning the patient's symptoms up considerably better than what her CT and labs revealed to show she is ablating well nausea pain is well controlled she is passing some flatus but no bowel movements yet computed tomography scan was reviewed and so significant amount of dilation of the small bowel throughout. Possible distal obstruction but at this time she is clinically doing well. I will continue to keep her in PO and reassess her at intervals. Further recommendations will be made as her clinical course becomes more clear. At this time overall she is a complicated high risk patient with multiple medical issues her prognosis remains guarded
[2017-02-01] MEDS: MULTIVITAMINS, THERA 1 EACH TAB PO SCH (21:03)
[2017-02-01] MEDS: TIOTROPIUM 18 MCG/PUFF INHALER INHALATION SCH (21:03)
[2017-02-01] MEDS: SERTRALINE 100 MG TAB PO SCH (21:04)
[2017-02-02] MEDS: METOCLOPRAMIDE 5 MG/ML 2 ML VIAL IVP SCH ×4 (00:20→19:33)
[2017-02-02] MEDS: 0.9% NACL WITH KCL 20 MEQ/L 1,000 ML IV SCH ×3 (00:20→15:26)
[2017-02-02 06:58] LABS: ALT 43 U/L (9-52); AST 36 U/L (14-36); Alkaline Phosphatase 82 U/L (38-126); Anion Gap 8 mmol/L; Blood Urea Nitrogen 15 mg/dL (7-17); Calcium 8.1 mg/dL (8.4-10.2); Carbon Dioxide 22 mmol/L (22-30); Chloride 115 mmol/L (98-107); Glucose 93 mg/dL (74-99); Magnesium 2.1 mg/dL (1.6-2.3); Non-African American GFR(MDRD) >60 (>60 ml/min/1.73 sqM); Phosphorous 3.1 mg/dL (2.5-4.5); Potassium 3.8 mmol/L (3.5-5.1); Sodium 145 mmol/L (137-145); Total Bilirubin 0.5 mg/dL (0.2-1.3); Total Protein 5.2 g/dL (6.3-8.2)
[2017-02-02] MEDS: ALBUTEROL NEBULIZED 2.5 MG/3 ML INHALATION SCH ×4 (07:33→19:59)
[2017-02-02 07:58] LABS: Basophils % (A) 1 %; CH 30.1; CHCM 32.6; Eosinophils # (A) 0.2 k/uL (0-0.7); Eosinophils % (A) 3 %; HCT 36.6 % (34.0-46.0); HDW 2.83; Luc # (Auto) 0.18; Luc % (Auto) 3; Lymphocytes # (A) 2.3 k/uL (1.0-4.8); Lymphocytes % (A) 34 %; MCH 30.2 pg (25.0-35.0); MCHC 32.6 g/dL (31.0-37.0); MCV 92.9 fL (80.0-100.0); Mean Platelet Volume 7.7; Monocytes # (A) 0.4 k/uL (0-1.0); Monocytes % (A) 6 %; Neutrophils # (A) 3.8 k/uL (1.3-7.7); Neutrophils % (A) 55 %; RBC 3.95 m/uL (3.80-5.40); RDW 14.6 % (11.5-15.5); WBC 6.9 k/uL (3.8-10.6); WBC (Perox) 7.23
[2017-02-02 08:01] LABS: HGB 11.9 gm/dL (11.4-16.0)
[2017-02-02] MEDS: ENOXAPARIN 40 MG/0.4 ML SYRINGE SQ SCH (08:27)
[2017-02-02] MEDS: buPROPion SR 150 MG TABLET.ER PO SCH ×2 (08:28→20:09)
[2017-02-02] MEDS: TAMSULOSIN 0.4 MG CAP.ER.24H PO SCH (08:28)
[2017-02-02] MEDS: ALPRAZolam 0.5 MG TAB PO SCH ×2 (08:28→20:09)
[2017-02-02] MEDS: CALCIUM CARB-VIT D 500MG-200UN 1 EACH TAB PO SCH (08:28)
[2017-02-02] MEDS: PANTOPRAZOLE 40 MG/10 ML VIAL IV SCH (08:30)
[2017-02-02] MEDS: SERTRALINE 50 MG TAB PO SCH (08:30)
[2017-02-02] MEDS: PANTOPRAZOLE 40 MG TABLET PO SCH ×2 (08:31→10:01)
--- NOTE | 2017-02-02 14:46 | P.PN ---
Subjective Principal diagnosis: Nausea vomiting and dehydration Overall the patient is doing very well she is ablating regularly passing flatus. She's not had any more loose bowel movements. There've been no further issues since yesterday. Objective - Vital Signs Vital signs: Vital Signs Temp 97.6 F 02/02/17 14:33 Pulse 85 02/02/17 14:33 Resp 16 02/02/17 14:33 BP 138/92 02/02/17 14:33 Pulse Ox 99 02/02/17 14:33 Intake & Output 02/01/17 02/02/17 02/02/17 18:59 06:59 18:59 Intake Total 1375 2150 0 Output Total 1000 400 400 Balance 375 1750 -400 Weight 91.3 kg Intake: Intake, IV Titration 1375 1950 Amount 0.9% NaCl with KCl 20 Meq 1350 /l 1,000 ml @ 150 mls/hr IV .Q6H40M [facility] Rx#: [id number] 0.9% NaCl with KCl 20 Meq 1125 600 /l 1,000 ml @ 150 mls/hr IV .Q6H40M [facility] Rx#: [id number] Potassium Phosphate 10 250 mmol In Sodium Chloride 0 .9% 250 ml @ 125 mls/hr IV Q2H [facility] Rx#:[id number] Oral 0 200 0 Output: Urine 1000 300 400 Stool 0 Emesis 100 - EENT Eyes: Present: PERRLA - Gastrointestinal Gastrointestinal Comment(s): Abdomen is soft nontender nondistended. General gastrointestinal: Present: soft - Labs CBC & Chem 7: 02/02/17 07:22 02/02/17 06:35 Labs: Abnormal Lab Results - Last 24 Hours (Table) 02/02/17 Range/Units 06:35 Chloride 115 H (98-107) mmol/L Calcium 8.1 L (8.4-10.2) mg/dL Total Protein 5.2 L (6.3-8.2) g/dL Albumin 2.8 L (3.5-5.0) g/dL Assessment and Plan Plan: Patient 61-year-old female who is a gastric bypass in about 2 months ago Patient's medical problems include \ #1 nausea #2 history of gases visual reflux with failure fundoplication #3 COPD 4- Sleep apnea 5- Hypertension 6- history of hiatal hernia 7 hepatomegaly 8-ileus 9- Anxiety and depression Patient's WBC count has normalized, we'll she's feeling much better ablating normally. She has been nothing by mouth and had a little bit of nausea when taking her pills. At this time have allowed her to have clear liquid diet to be nothing by mouth past midnight for EGD for tomorrow per Dr. Winter. DR Winter will resume care tomorrow morning.
[2017-02-02] MEDS: SERTRALINE 100 MG TAB PO SCH (20:08)
[2017-02-02] MEDS: MULTIVITAMINS, THERA 1 EACH TAB PO SCH ×2 (20:08→20:18)
[2017-02-02] MEDS: TIOTROPIUM 18 MCG/PUFF INHALER INHALATION SCH (20:12)
[2017-02-03] MEDS: 0.9% NACL WITH KCL 20 MEQ/L 1,000 ML IV SCH ×3 (01:17→10:42)
[2017-02-03] MEDS: METOCLOPRAMIDE 5 MG/ML 2 ML VIAL IVP SCH ×2 (01:23→05:09)
[2017-02-03 07:07] LABS: Basophils % (A) 1 %; CHCM 32.4; Eosinophils # (A) 0.3 k/uL (0-0.7); Eosinophils % (A) 5 %; HCT 38.4 % (34.0-46.0); HDW 2.83; HGB 12.4 gm/dL (11.4-16.0); Luc # (Auto) 0.13; Luc % (Auto) 2; Lymphocytes # (A) 2.2 k/uL (1.0-4.8); Lymphocytes % (A) 35 %; MCH 30.1 pg (25.0-35.0); MCHC 32.3 g/dL (31.0-37.0); Mean Platelet Volume 8.1; Monocytes # (A) 0.3 k/uL (0-1.0); Monocytes % (A) 5 %; Neutrophils # (A) 3.3 k/uL (1.3-7.7); Neutrophils % (A) 52 %; RBC 4.13 m/uL (3.80-5.40); RDW 14.5 % (11.5-15.5); WBC 6.3 k/uL (3.8-10.6); WBC (Perox) 6.71
[2017-02-03 07:24] LABS: ALT 93 U/L (9-52); AST 74 U/L (14-36); Alkaline Phosphatase 94 U/L (38-126); Anion Gap 7 mmol/L; Blood Urea Nitrogen 8 mg/dL (7-17); Calcium 8.7 mg/dL (8.4-10.2); Carbon Dioxide 26 mmol/L (22-30); Chloride 109 mmol/L (98-107); Glucose 88 mg/dL (74-99); Non-African American GFR(MDRD) >60 (>60 ml/min/1.73 sqM); Phosphorous 3.4 mg/dL (2.5-4.5); Potassium 4.1 mmol/L (3.5-5.1); Sodium 142 mmol/L (137-145); Total Bilirubin 0.7 mg/dL (0.2-1.3); Total Protein 5.9 g/dL (6.3-8.2)
[2017-02-03 07:48] VITALS: RESP 15
--- NOTE | 2017-02-03 07:56 | P.PN ---
Progress Note - Text Patient seen and evaluated. Still complains of dysphagia to pills. History of gastric stricture. Will need EGD with balloon.
[2017-02-03] MEDS: ALBUTEROL NEBULIZED 2.5 MG/3 ML INHALATION SCH ×2 (08:23→11:31)
--- NOTE | 2017-02-03 09:41 | CT ---
EXAMINATION TYPE: CT abdomen pelvis wo con DATE OF EXAM: 02/03/2017 8:22 AM COMPARISON: 02/01/2017 INDICATION: Patient has no complaints at time of study. Follow up study for possible bowel obstructi on. DLP: 834.2 mGycm, Automated exposure control for dose reduction was used. CONTRAST: 0 mL of Omnipaque 300. Study performed without Oral Contrast TECHNIQUE: Axial images were obtained from above the diaphragm to the pubic rami in the axial plane a t 5 mm thick sections. Reconstructed images are reviewed on the computer in the coronal plane. FINDINGS: Limited CT sections are obtained the lung bases. Mild atelectasis within the anterior portion of the left lower lobe. Some minimal subsegmental lingular atelectasis may be present. CT ABDOMEN: Postsurgical changes are within the stomach. Liver: Normal Spleen: Normal Pancreas: Normal Adrenal glands: The adrenal glands are normal. Gallbladder: Surgically absent. Kidneys: No masses are evident. No hydronephrosis is present. No cysts are present. There may be a 0.3 cm posterior mid to inferior pole left renal stone. No hydronephrosis is evident. Aorta: Vascular calcification is within the aorta. Inferior vena cava: Normal. CT PELVIS: Small amount of free fluid is within the pelvis. Loops of bowel within the abdomen and pelvis are normal. Previous dilated small bowel loops have resolved. There is some fluid remaining within somewhat prominent distal jejunum proximal ileum. The distal ileum is decompressed. No specific some transition is evident. Findings could be related to re solving small bowel obstruction or resolving ileus. Continued follow-up is recommended. Surgical sutu res in the left upper quadrant of the abdomen Appendix: Small portion visualized is Normal as visualized. Urinary bladder: Normal. Genitourinary structures: Uterus is unremarkable. Adnexal regions may have some minimal fluid Osseous structures: No suspicious lytic or sclerotic lesions. Facet degenerative changes are at the l ower lumbar spine IMPRESSIONS: 1. Residual prominent small bowel loops within the left upper quadrant. Overall, there is diminished size of the jejunum without evidence of a zone of transition. Resolving small bowel obstruction or i leus could be considered. Continued follow-up is recommended.
[2017-02-03] MEDS ORDERED: LIDOCAINE 1% INJ 10MG/ML (20 ML MDV) ONE (09:42)
[2017-02-03] MEDS ORDERED: PROPOFOL 10 MG/ML 20 ML VIAL IV ONE (09:42)
[2017-02-03] MEDS ORDERED: IV FLUID CONTINUATION 1,000 ML IV ONE (09:45)
--- NOTE | 2017-02-03 10:04 | P.PCN ---
Date of Procedure: 02/03/17 Description of Procedure: PREOPERATIVE DIAGNOSIS: Dysphagia. Gastroesophageal reflux disease. Nausea with vomiting. Gastrojejunal stricture with chronic ulcer without perforation Epigastric abdominal pain. POSTOPERATIVE DIAGNOSIS: Dysphagia. Gastroesophageal reflux disease. Nausea with vomiting. Gastrojejunal stricture with chronic ulcer without perforation Epigastric abdominal pain. OPERATION: Esophagogastrojejunoscopy with balloon dilatation to 20 mm. SURGEON: Ashley Winter MD ANESTHESIA: MAC. INDICATIONS: The patient is a 61-year-old female who presents with a history of dysphagia, epigastric abdominal pain and history of gastrojejunal ulcer with obstruction. Benefits and risks of the procedure were described. Informed consent was obtained. DESCRIPTION: The patient was brought into the endoscopy suite and laid in the left lateral decubitus position. After a timeout was confirmed, the procedure was initiated. An Olympus gastroscope was passed along the posterior oropharynx down to the distal esophagus where the squamocolumnar junction was unremarkable. The gastric pouch was entered. A gastrojejunal stricture of 12 mm was found as the adult gastroscope was 9.5 mm in size. A [employer] balloon dilator was placed through the scope. Final insufflation up to 20 mm was performed with a total of 2 minutes. The scope was advanced up to 60 cm from the incisors into the Da limb. The mucosa of the gastrojejunal anastomosis was intact. However chronic gastrojejunal marginal ulcer was encountered. No full-thickness injury was encountered. The GI tract was desufflated. The patient tolerated the procedure well. FINDINGS: Squamocolumnar junction unremarkable at 37 cm. Stricture of approximately 12 mm encountered. Chronic gastrojejunal ulceration encountered although improved in 10 days. Successful balloon dilatation to 20 mm. Diaphragmatic hiatus at 40 cm. Gastric pouch 3 cm. Diaphragmatic hiatal hernia, 3 cm. RECOMMENDATIONS: Continue with omeprazole. Upper endoscopy as needed.
[2017-02-03] MEDS: CALCIUM CARB-VIT D 500MG-200UN 1 EACH TAB PO SCH (10:40)
[2017-02-03] MEDS: buPROPion SR 150 MG TABLET.ER PO SCH (10:41)
[2017-02-03] MEDS: SERTRALINE 50 MG TAB PO SCH (10:41)
[2017-02-03] MEDS: PANTOPRAZOLE 40 MG TABLET PO SCH (10:41)
[2017-02-03] MEDS: ENOXAPARIN 40 MG/0.4 ML SYRINGE SQ SCH (10:41)
[2017-02-03] MEDS: TAMSULOSIN 0.4 MG CAP.ER.24H PO SCH (10:41)
[2017-02-03] MEDS: ALPRAZolam 0.5 MG TAB PO SCH (10:41)
[2017-02-03 10:49] VITALS: BP 138/91; PULSE 72; TEMP 98.1
--- NOTE | 2017-02-03 14:00 | P.DS ---
Providers Date of admission: 01/31/17 20:22 Expected date of discharge: 02/03/17 Attending physician: Ashley Winter Primary care physician: Ashley Winter Hospital Course: 61-year-old female presented on the day of admission with a chief complaint of nausea and abdominal pain. Patient has been having ongoing nausea. Patient stated for the past week she could not tolerate a lot of liquids and had no bowel movement was complaining of abdominal pain patient has a history of gastric bypass done in November 2016 Fercho fundoplication . Patient was admitted to the services of the attending. On February 03 patient underwent an EGD with balloon dilatation. Patient as mentioned does have a history of dysphasia with epigastric abdominal pain. Additionally patient has a history of gastrojejunal stricture with chronic ulcer without perforation. Postprocedure patient was felt to be hemodynamically stable and appropriate proceed with a discharge to home Impression discharge diagnosis Present on admission nausea vomiting suspect likely due to gastrojejunal stricture with chronic ulcer without perforation Chronic dysphasia Gastroesophageal reflux disease Epigastric abdominal pain History of gastrojejunal ulcer with obstruction Status post EGD with balloon dilatation January The above dictated assessment and findings were discussed with dr Maggy Rossi and the plan of care have been dictated as directed. Haylee Louise nurse practitioner acting as a scribe for Maggy Plan - Discharge Summary Discharge Medication List ALPRAZolam 1 mg PO HS 05/22/16 [History] Albuterol Sulfate [Proventil Hfa] 2 puff INHALATION RT-TID PRN 05/22/16 [History ] Esomeprazole Magnesium [NexIUM] 40 mg PO DAILY 05/22/16 [History] Sertraline HCl [Zoloft] 50 mg PO QAM 05/22/16 [History] Sertraline HCl [Zoloft] 100 mg PO HS 05/22/16 [History] Tiotropium [place] [Spiriva] 1 cap INHALATION RT-HS 05/22/16 [History] buPROPion SR [Wellbutrin Sr] 150 mg PO BID 05/22/16 [History] Tamsulosin HCl [Flomax] 0.4 mg PO DAILY #60 cap.er.24h 12/17/16 [Rx] Ca/D3/Mag#11/Zinc/[employer]/Juan/Bor [Caltrate 600+D Plus Tablet] 2 tab PO DAILY 01/21 [History] Multivitamin [Multivitamins Adult Gummies] 1 tab PO HS 01/21/17 [History] ALPRAZolam [Xanax] 0.5 mg PO QAM 01/31/17 [History] Follow up Appointment(s)/Referral(s): Ashley Winter MD [Primary Care Provider] - 02/11/17 11:20 am (In the [place] [facility]) Patient Instructions/Handouts: Peptic Ulcer (GEN), Esophageal Stricture (DC) Activity/Diet/Wound Care/Special Instructions: Liquid diet today. Soft diet tomorrow. Activity as tolerated. No driving for 24 hours (sedation) Discharge Disposition: HOME SELF-CARE
== END 2017-02-03 13:11 | disposition home or self-care (01) | DRG 394 ==
LOC: 3SUR 20:22
PROVIDERS: ADMIT Surgery Plastic and Reconstructive Surgery; ATTEND Surgery Plastic and Reconstructive Surgery
PROC: 0D7A8ZZ Dilation of Jejunum, Via Natural or Artificial Opening Endoscopic (ICD-10-PCS; 2017-02-03)
PROC: 0D768ZZ Dilation of Stomach, Via Natural or Artificial Opening Endoscopic (ICD-10-PCS; principal; 2017-02-03 07:30)
DX: K95.89 Other complications of other bariatric procedure (principal); K56.69 Other intestinal obstruction; R16.0 Hepatomegaly, not elsewhere classified; K28.7 Chronic gastrojejunal ulcer without hemorrhage or perforation; R13.10 Dysphagia, unspecified; I10 Essential (primary) hypertension; E78.5 Hyperlipidemia, unspecified; F32.9 Major depressive disorder, single episode, unspecified; E86.0 Dehydration; F41.9 Anxiety disorder, unspecified; G47.30 Sleep apnea, unspecified; J44.9 Chronic obstructive pulmonary disease, unspecified; K21.9 Gastro-esophageal reflux disease without esophagitis; K44.9 Diaphragmatic hernia without obstruction or gangrene; I83.90 Asymptomatic varicose veins of unspecified lower extremity; Z79.899 Other long term (current) drug therapy; Z85.828 Personal history of other malignant neoplasm of skin; Z98.84 Bariatric surgery status; Z87.891 Personal history of nicotine dependence; Z88.1 Allergy status to other antibiotic agents; Z82.49 Family history of ischemic heart disease and other diseases of the circulatory system; Y84.8 Other medical procedures as the cause of abnormal reaction of the patient, or of later complication, without mention of misadventure at the time of the procedure
CPT/HCPCS: 43249; 74176; 74177; 80053; 83735; 84100; 84425; 85025; 94640

== ENCOUNTER 2017-02-11 18:56 | Inpatient (IN) | payer MEDICARE, BC ==
[2017-02-11] MEDS ORDERED: MORPHINE SULFATE 4 MG/ML SYRINGE IV PRN (19:45)
[2017-02-11] MEDS ORDERED: NALOXONE 0.4 MG/ML 1 ML VIAL IV PRN (19:45)
[2017-02-11] MEDS ORDERED: ONDANSETRON 4 MG/2 ML VIAL IVP PRN (19:45)
[2017-02-11] MEDS ORDERED: SODIUM CHLORIDE 0.9% 2,000 ML IV ONE (19:48)
[2017-02-11] MEDS ORDERED: ALBUTEROL NEBULIZED 2.5 MG/3 ML INHALATION PRN (19:49)
--- NOTE | 2017-02-11 19:59 | P.GSHP ---
History of Present Illness H&P Date: 02/11/17 Chief Complaint: Abdominal pain The patient is a 61-year-old female who was seen earlier in the office for follow-up after having a upper endoscopy with balloon dilatation for esophageal stricture 2 weeks ago. Her findings at that time included an stomach ulcer of the gastric pouch. Incidentally upon her recent hospitalization 2-3 weeks ago she had bowel obstruction which had spontaneously resolved. Today she comes in complaining of increased nausea including epigastric abdominal pain. She was tolerating textured foods and had noted overeating however now she reports worsening nausea and vomiting. With a history of gastric bypass as well as previous bowel obstruction, now she presents for admission as her symptoms are now worse. She reports poor oral intake. - Review of Systems Comment: CONSTITUTIONAL: Denies any fever or chills. Intentional weight loss over 40 pounds in 2 months following gastric bypass. HEENT: Denies any trouble with vision, hearing or nosebleeds. Has difficulty swallowing. LYMPHATIC: The patient denies any lumps and bumps around the neck. ENDOCRINE: Denies any thyroid disorders. Denies any blood sugar glucose intolerance. RESPIRATORY: Has past pneumonia in the last 8 weeks. Denies any troubles with breathing or dyspnea on exertion. CARDIOVASCULAR: Denies any chest pain, palpitations, or recent heart attacks. GASTROINTESTINAL: Denies heart burn or bright red blood per rectum. Previous gastroesophageal reflux disease resolved. History of gastric pouch stricture requiring upper endoscopy and balloon dilatation 2 weeks ago. GENITOURINARY: Denies any blood in urine or increased urinary frequency. MUSCULOSKELETAL: Has back pain, stiffness, joint arthritis. NEUROLOGIC: Denies any numbness or tingling along the distal extremities. No seizure disorders or headaches. PSYCHIATRIC: Has depression and moderate anxiety. No suidical ideation. HEMATOLOGIC: Denies any abnormal bleeding or bruising. Past Medical History Past Medical History: Cancer, COPD, GERD/Reflux, Hyperlipidemia, Respiratory Disorder, Sleep Apnea/CPAP/BIPAP Additional Past Medical History / Comment(s): chronic bronchitis recently was on abx-now resolved, varicose veins, hx ulcers, hx skin cancer, uses C-Pap, recent admission for nausea/vomiting, possible "blockage" per pt. History of Any Multi-Drug Resistant Organisms: None Reported Past Surgical History: Bariatric Surgery, Cholecystectomy, Tubal Ligation Additional Past Surgical History / Comment(s): maverick fundoplication and Gastric bypass Da-en-y 12/05/16-pt stated "has lost 35# since sx". egd/dilation Past Anesthesia/Blood Transfusion Reactions: No Reported Reaction Past Psychological History: Anxiety, Depression Additional Psychological History / Comment(s): pt stated she feels well maintained on her current meds. no thoughts of wanting to harm self. pt lives with her and 1 son -no pets. lives in a single level home that has 5-6 steps into home. receives no outside services. has a cpap machine. 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 Smoking Status: Former smoker Past Alcohol Use History: Rare Additional Past Alcohol Use History / Comment(s): QUIT SMOKING NOV 2013. SMOKED UP TO 2 1/2 PPD. STARTED SMOKING AGE 15. Past Drug Use History: None Reported - Past Family History Mother Family Medical History: Hypertension Father Family Medical History: No Reported History Additional Family Medical History / Comment(s): mom had hypertension. Medications and Allergies Home Medications Medication Instructions Recorded Confirmed Type ALPRAZolam 1 mg PO HS 05/22/16 02/11/17 History Albuterol Sulfate [Proventil Hfa] 2 puff INHALATION RT-TID PRN 05/22/16 History Esomeprazole Magnesium [NexIUM] 40 mg PO DAILY 05/22/16 02/11/17 History Sertraline HCl [Zoloft] 50 mg PO QAM 05/22/16 02/11/17 History Sertraline HCl [Zoloft] 100 mg PO HS 05/22/16 02/11/17 History Tiotropium [place] [Spiriva] 1 cap INHALATION RT-HS 05/22/16 02/11/17 History buPROPion SR [Wellbutrin Sr] 150 mg PO BID 05/22/16 02/11/17 History Ca/D3/Mag#11/Zinc/[employer]ing [employer]/Juan/Bor 2 tab PO DAILY 01/21/17 02/11/17 History [Caltrate 600+D Plus Tablet] Multivitamin [Multivitamins Adult 1 tab PO HS 01/21/17 02/11/17 History Gummies] ALPRAZolam [Xanax] 0.5 mg PO QAM 01/31/17 02/11/17 History Docusate [Colace] 100 mg PO DAILY 02/11/17 02/11/17 History Allergies Allergy/AdvReac Type Severity Reaction Status Date / Time erythromycin base AdvReac Diarrhea Verified 02/11/17 17:30 Surgical - Exam GENERAL: Well developed and in no acute distress. HEENT: No sclera icterus. Extraocular movements grossly intact. Moist buccal mucosa. Head is atraumatic, normocephalic. Hears conversational speech. No nasal drainage. NECK: Supple without lymphadenopathy. No JV distention. CHEST: Non-labored respirations and equal bilateral excursions. CARDIOVASCULAR: Regular rate and rhythm. Palpable 2+ radial pulses. ABDOMEN: Soft. Mild tenderness along the epigastrium. No peritonitis. MUSCULOSKELETAL: No clubbing, cyanosis or edema. NEUROLOGIC: No focal or lateralizing signs. PSYCH: Appropriate affect. Alert and oriented to person, place and time. Results - Imaging Abdominal x-ray: pending Assessment and Plan (1) Small bowel obstruction Status: Acute (2) Stenosis of stomach Status: Acute (3) Nausea & vomiting Status: Acute (4) Bariatric surgery status Status: Acute (5) Epigastric abdominal pain Status: Acute (6) COPD (chronic obstructive pulmonary disease) Status: Chronic Plan: 1. Recommend IV fluid hydration. 2. Comprehensive metabolic panel including magnesium, phosphorus, CBC are pending. 3. Recommend acute abdominal series. 4. The patient is scheduled for diagnostic laparoscopy with lysis of adhesions however now inpatient. 5. May also benefit from repeat upper endoscopy for possible stomach dilation. 6. Full inpatient admission advised.
--- NOTE | 2017-02-11 20:28 | XR ---
EXAMINATION TYPE: XR abdomen 2V DATE OF EXAM: 02/11/2017 8:20 PM COMPARISON: NONE HISTORY: Pain TECHNIQUE: Supine and upright views of the abdomen are submitted. FINDINGS: There is mild gaseous distention of small and large bowel. No definite obstructive features identifie d. Postoperative changes about the stomach and left upper quadrant. No convincing evidence for pneumoperitoneum. No unusual calcifications. The lung bases are clear. The osseous structures are intact. IMPRESSION: 1. Overall nonspecific nonobstructive bowel gas pattern.
[2017-02-11 20:46] LABS: Basophils # (A) 0.1 k/uL (0-0.2); Basophils % (A) 1 %; CH 29.9; CHCM 32.5; Eosinophils # (A) 0.5 k/uL (0-0.7); Eosinophils % (A) 6 %; HCT 40.7 % (34.0-46.0); HGB 13.4 gm/dL (11.4-16.0); Luc # (Auto) 0.19; Luc % (Auto) 2; Lymphocytes % (A) 25 %; MCH 30.4 pg (25.0-35.0); MCV 92.3 fL (80.0-100.0); Mean Platelet Volume 7.5; Monocytes # (A) 0.4 k/uL (0-1.0); Monocytes % (A) 5 %; Neutrophils # (A) 4.7 k/uL (1.3-7.7); Neutrophils % (A) 59 %; RBC 4.41 m/uL (3.80-5.40); RDW 14.7 % (11.5-15.5); WBC 7.9 k/uL (3.8-10.6)
[2017-02-11] MEDS: TIOTROPIUM 18 MCG/PUFF INHALER INHALATION SCH (20:49)
[2017-02-11 21:00] LABS: ALT 35 U/L (9-52); AST 28 U/L (14-36); Alkaline Phosphatase 117 U/L (38-126); Amylase 73 U/L (30-110); Anion Gap 11 mmol/L; Blood Urea Nitrogen 14 mg/dL (7-17); Calcium 9.3 mg/dL (8.4-10.2); Carbon Dioxide 24 mmol/L (22-30); Chloride 109 mmol/L (98-107); Glucose 98 mg/dL (74-99); Magnesium 2.3 mg/dL (1.6-2.3); Non-African American GFR(MDRD) >60 (>60 ml/min/1.73 sqM); Phosphorous 3.6 mg/dL (2.5-4.5); Potassium 3.1 mmol/L (3.5-5.1); Sodium 144 mmol/L (137-145); Total Bilirubin 0.5 mg/dL (0.2-1.3)
[2017-02-11] MEDS: PANTOPRAZOLE 40 MG/10 ML VIAL IVP SCH (21:57)
[2017-02-11] MEDS: SERTRALINE 100 MG TAB PO SCH (21:57)
[2017-02-11] MEDS: buPROPion SR 150 MG TABLET.ER PO SCH (21:57)
[2017-02-11] MEDS: LORazepam 2 MG/ML SYRINGE IV PRN (22:03)
[2017-02-12] MEDS ORDERED: METOCLOPRAMIDE 5 MG/ML 2 ML VIAL IVP SCH
[2017-02-12] MEDS: POTASSIUM CHLORIDE 10 MEQ, LIDOCAINE 2% INJ 10 MG in SODIUM CHLORIDE 0.9% 100 ML IVPB SCH ×4 (02:34→05:56)
[2017-02-12] MEDS: SODIUM CHLORIDE 0.9% 1,000 ML IV SCH ×4 (02:34→19:06)
[2017-02-12] MEDS: PANTOPRAZOLE 40 MG/10 ML VIAL IVP SCH ×2 (08:31→21:05)
[2017-02-12 08:49] LABS: Basophils # (A) 0.1 k/uL (0-0.2); Basophils % (A) 1 %; CH 29.7; CHCM 32.4; Eosinophils # (A) 0.4 k/uL (0-0.7); Eosinophils % (A) 8 %; HCT 36.8 % (34.0-46.0); HDW 2.71; Luc # (Auto) 0.14; Luc % (Auto) 3; Lymphocytes # (A) 1.6 k/uL (1.0-4.8); Lymphocytes % (A) 29 %; MCH 29.9 pg (25.0-35.0); MCHC 32.5 g/dL (31.0-37.0); Mean Platelet Volume 7.6; Monocytes # (A) 0.3 k/uL (0-1.0); Monocytes % (A) 5 %; Neutrophils % (A) 55 %; RDW 14.5 % (11.5-15.5); WBC 5.4 k/uL (3.8-10.6); WBC (Perox) 5.74
[2017-02-12] MEDS ORDERED: PANTOPRAZOLE 40 MG/10 ML VIAL IV SCH (09:00)
[2017-02-12 09:23] LABS: Magnesium 2.1 mg/dL (1.6-2.3)
[2017-02-12] MEDS: buPROPion SR 150 MG TABLET.ER PO SCH ×2 (11:26→20:38)
[2017-02-12] MEDS: TAMSULOSIN 0.4 MG CAP.ER.24H PO SCH (11:26)
[2017-02-12] MEDS: SERTRALINE 50 MG TAB PO SCH (11:26)
[2017-02-12 11:36] LABS: ALT 36 U/L (9-52); AST 18 U/L (14-36); Alkaline Phosphatase 91 U/L (38-126); Anion Gap 9 mmol/L; Blood Urea Nitrogen 9 mg/dL (7-17); Calcium 8.5 mg/dL (8.4-10.2); Carbon Dioxide 23 mmol/L (22-30); Chloride 112 mmol/L (98-107); Glucose 83 mg/dL (74-99); Non-African American GFR(MDRD) >60 (>60 ml/min/1.73 sqM); Potassium 3.6 mmol/L (3.5-5.1); Sodium 144 mmol/L (137-145); Total Bilirubin 0.4 mg/dL (0.2-1.3); Total Protein 5.8 g/dL (6.3-8.2)
--- NOTE | 2017-02-12 17:22 | P.HPADDEND ---
H&P Addendum H&P Addendum Date: 02/12/17 The patient has history of gastrojejunal ulcer and reports dysphagia to solid foods. We'll proceed with upper endoscopy and balloon dilatation.
[2017-02-12] MEDS ORDERED: PROPOFOL 10 MG/ML 20 ML VIAL IV ONE (17:23)
[2017-02-12] MEDS ORDERED: LIDOCAINE 1% INJ 10MG/ML (20 ML MDV) ONE (17:23)
[2017-02-12] MEDS ORDERED: IV FLUID CONTINUATION 1,000 ML IV ONE (17:25)
--- NOTE | 2017-02-12 17:41 | P.PCN ---
Date of Procedure: 02/12/17 Description of Procedure: PREOPERATIVE DIAGNOSIS: Dysphagia. Nausea with vomiting. Gastric stenosis with gastrojejunal stricture POSTOPERATIVE DIAGNOSIS: Dysphagia. Nausea with vomiting. Gastric stenosis with gastrojejunal stricture OPERATION: Esophagogastrojejunoscopy with balloon dilatation from 12 to 20 mm. SURGEON: Ashley Winter MD ANESTHESIA: MAC. INDICATIONS: The patient is a 61-year-old female who presents with a history of dysphagia and gastric stenosis with gastrojejunal stricture. Benefits and risks of the procedure were described. Informed consent was obtained. DESCRIPTION: The patient was brought into the endoscopy suite and laid in the left lateral decubitus position. After a timeout was confirmed, the procedure was initiated. An Olympus gastroscope was passed along the posterior oropharynx down to the distal esophagus where the squamocolumnar junction was unremarkable. The gastric pouch was entered. A gastrojejunal stricture of 12 mm was found as the adult gastroscope was 9.9 mm in size. A [employer] balloon dilator was placed through the scope. Final insufflation up to 20 mm was performed with a total of 2 minutes. The scope was advanced up to 60 cm from the incisors into the Da limb. The mucosa of the gastrojejunal anastomosis was intact. Resolved chronic gastrojejunal marginal ulcer was encountered. No full-thickness injury was encountered. The GI tract was desufflated. The patient tolerated the procedure well. FINDINGS: Squamocolumnar junction unremarkable at 37 cm. Stricture of approximately 12 mm encountered. Chronic gastrojejunal ulceration, resolved. Successful balloon dilatation to 20 mm. RECOMMENDATIONS: Continue with Nexium. Upper endoscopy as needed.
[2017-02-12] MEDS ORDERED: HYOSCYAMINE ORAL DROPS 1.875 MG/15 ML BOTTLE PO PRN (19:30)
[2017-02-12] MEDS: 0.9% NACL WITH KCL 40 MEQ/L 1,000 ML IV SCH ×2 (19:35→23:55)
[2017-02-12] MEDS: TIOTROPIUM 18 MCG/PUFF INHALER INHALATION SCH (20:12)
[2017-02-12] MEDS: SERTRALINE 100 MG TAB PO SCH (20:39)
[2017-02-12] MEDS: SIMETHICONE 40 MG/0.6 ML DROPS 2,000 MG/30 ML BOTTLE PO SCH (20:42)
[2017-02-12] MEDS: LORazepam 2 MG/ML SYRINGE IV PRN (22:13)
[2017-02-13] MEDS: buPROPion SR 150 MG TABLET.ER PO SCH ×2 (09:21→21:04)
[2017-02-13] MEDS: TAMSULOSIN 0.4 MG CAP.ER.24H PO SCH (09:21)
[2017-02-13] MEDS: SERTRALINE 50 MG TAB PO SCH (09:21)
[2017-02-13] MEDS: ENOXAPARIN 40 MG/0.4 ML SYRINGE SQ SCH ×2 (09:25→11:50)
[2017-02-13] MEDS: PANTOPRAZOLE 40 MG/10 ML VIAL IVP SCH ×2 (09:32→21:04)
[2017-02-13] MEDS: SIMETHICONE 40 MG/0.6 ML DROPS 2,000 MG/30 ML BOTTLE PO SCH ×4 (09:32→21:05)
[2017-02-13] MEDS ORDERED: LACTATED RINGERS 1,000 ML IV ONE ×2 (11:41→13:29)
[2017-02-13] MEDS ORDERED: ceFAZolin 2 GM in SODIUM CHLORIDE 0.9% 100 ML IVPB ONE (12:00)
[2017-02-13] MEDS ORDERED: LIDOCAINE 1% 20 ML VIAL (10MG/ML) FOR IV START INTRADERMA ONE (12:08)
--- NOTE | 2017-02-13 12:18 | P.HPADDEND ---
H&P Addendum H&P Addendum Date: 02/13/17 Patient still complains of epigastric pain despite balloon dilatation. She has history of previous bowel obstruction. Will proceed with diagnostic laparoscopy including lysis of adhesions. Possibility of bowel resection was also discussed.
[2017-02-13] MEDS ORDERED: HYDROmorphone (PF) 1 MG/ML ONE (12:19)
[2017-02-13] MEDS ORDERED: PHENYLEPHRINE-0.9% NACL SYG 1 MG/10 ML SYRINGE ONE (12:19)
[2017-02-13] MEDS ORDERED: PROPOFOL 10 MG/ML 20 ML VIAL IV ONE (12:19)
[2017-02-13] MEDS ORDERED: GLYCOPYRROLATE 0.2 MG/ML 2 ML VIAL ONE (12:19)
[2017-02-13] MEDS ORDERED: NEOSTIGMINE 1 MG/ML 10 ML VIAL ONE (12:19)
[2017-02-13] MEDS ORDERED: ROCURONIUM BROMIDE 10 MG/ML 10 ML VIAL IV ONE (12:19)
[2017-02-13] MEDS ORDERED: MIDAZOLAM 2 MG/2 ML VIAL ONE (12:19)
[2017-02-13] MEDS ORDERED: fentaNYL (PF) 50 MCG/ML 2 ML AMP ONE (12:19)
[2017-02-13] MEDS ORDERED: LIDOCAINE 1% INJ 10MG/ML (20 ML MDV) ONE (12:19)
[2017-02-13] MEDS ORDERED: SUCCINYLCHOLINE CHLORIDE 100 MG/5 ML SYR IV ONE (12:19)
[2017-02-13] MEDS ORDERED: BUPIVACAIN-EPI 0.25%-1:200,000 30 ML VIAL SQ ONE (12:24)
[2017-02-13] MEDS: 0.9% NACL WITH KCL 40 MEQ/L 1,000 ML IV SCH (14:16)
[2017-02-13] MEDS ORDERED: HYDROmorphone 1 MG/ML 1 ML SYRINGE IVP PRN (14:47)
[2017-02-13] MEDS ORDERED: ACETAMINOPHEN IV (For NPO) 1,000 MG in EMPTY BAG 1 BAG IVPB ONE (16:00)
--- NOTE | 2017-02-13 16:30 | P.PCN ---
Date of Procedure: 02/13/17 Preoperative Diagnosis: Epigastric abdominal pain, personal history of previous small bowel obstruction , chronic cough, COPD, gastroesophageal reflux disease, history of gastrojejunal stricture Postoperative Diagnosis: Same, intestinal adhesions, internal hernia Procedure(s) Performed: Laparoscopic lysis of adhesions over 1 hour, laparoscopic closure of jejunojejunostomy mesenteric defect Anesthesia: GETA, local Surgeon: Ashley Winter Estimated Blood Loss (ml): 20 Pathology: none sent Condition: stable Disposition: floor Operative Findings: Multiple internal hernias and adhesive band disease with high risk for on intermittent small bowel obstruction all lysed. Jejunojejunostomy mesenteric defect had been reopened from moderate weight loss and closed. Gastric pouch including epigastrium otherwise unremarkable.
--- NOTE | 2017-02-13 18:36 | P.PN ---
Subjective Principal diagnosis: Epigastric abdominal pain The patient is a 61-year-old female who presents with history of epigastric abdominal pain. She has a personal history of bowel obstruction as well. She had an upper endoscopy where she continued to have persistent epigastric pain. She was taken to the operating room with findings consistent with multiple intra -abdominal adhesions. Postoperatively she was tolerating diet. Objective - Vital Signs Vital signs: Vital Signs Temp 97.3 F L 02/13/17 15:30 Pulse 84 02/13/17 17:00 Resp 16 02/13/17 15:44 BP 121/67 02/13/17 17:00 Pulse Ox 95 02/13/17 17:00 Intake & Output 02/12/17 02/13/17 02/13/17 18:59 06:59 18:59 Intake Total 1050 1950 Output Total 825 Balance 1050 1125 Weight 87.09 kg Intake: IV 250 1550 Intake, IV Titration 800 400 Amount 0.9% NaCl with KCl 40 Meq 800 400 /l 1,000 ml @ 100 mls/hr IV .Q10H [facility] Rx#: [id number] Output: Urine 805 Estimated Blood Loss 20 Other: Voiding Method Toilet Toilet # Voids 1 1 - Exam GENERAL: Well developed and in no acute distress. Pleasant. HEENT: No sclera icterus. Extraocular movements grossly intact. Moist buccal mucosa. Head is atraumatic, normocephalic. Hears conversational speech. No nasal drainage. NECK: Supple without lymphadenopathy. No JV distention. CHEST: Non-labored respirations and equal bilateral excursions. CARDIOVASCULAR: Regular rate and rhythm. Palpable 2+ radial pulses. ABDOMEN: Soft, nontender. Incisions clean dry and intact with Dermabond. MUSCULOSKELETAL: No clubbing, cyanosis or edema. NEUROLOGIC: No focal or lateralizing signs. PSYCH: Appropriate affect. Alert and oriented to person, place and time. - Labs CBC & Chem 7: 02/12/17 08:14 02/12/17 08:14 Assessment and Plan (1) Small bowel obstruction Status: Acute (2) Stenosis of stomach Status: Acute (3) Nausea & vomiting Status: Acute (4) Bariatric surgery status Status: Acute (5) Epigastric abdominal pain Status: Acute (6) COPD (chronic obstructive pulmonary disease) Status: Chronic (7) Sinus drainage Status: Acute (8) Intestinal adhesions Status: Acute Plan: 1. She has been started on Claritin as her symptoms are highly suspicious for chronic sinus drainage which causes chronic cough hence epigastric abdominal pain. 2. She's tolerating diet. 3. Discharge home tomorrow. 4. Follow up in the office in 3-5 days.
--- NOTE | 2017-02-13 18:39 | P.DS ---
Providers Date of admission: 02/11/17 20:07 Expected date of discharge: 02/14/17 Attending physician: Ashley Winter Primary care physician: Stated None - Discharge Diagnosis(es) (1) Small bowel obstruction Current Visit: Yes Status: Acute (2) Stenosis of stomach Current Visit: Yes Status: Acute (3) Nausea & vomiting Current Visit: Yes Status: Acute (4) Bariatric surgery status Current Visit: Yes Status: Acute (5) Epigastric abdominal pain Current Visit: Yes Status: Acute (6) COPD (chronic obstructive pulmonary disease) Current Visit: No Status: Chronic (7) Sinus drainage Current Visit: Yes Status: Acute (8) Intestinal adhesions Current Visit: Yes Status: Acute Hospital Course: The patient is a 61-year-old female who acutely presented with increased dysphagia to solid foods as well as intermittent epigastric abdominal pain. She has a personal history of bowel obstruction. Given her generalized malaise , she had an upper endoscopy for which she had a dilation. She still complained of persistent epigastric abdominal pain. EKG was obtained which was negative. She underwent a diagnostic laparoscopy where moderate adhesions were identified and lysed. Postoperatively she was tolerating diet. She has history of chronic sinus drainage which has exacerbated her symptoms of chronic cough and intermittent nausea. She had been started on Claritin. Prior to discharge she was stable. Pertinent Studies: Abdominal x-ray demonstrating no free air Procedures: 1. EGD with balloon dilatation 2. Laparoscopic lysis of adhesions with closure of mesenteric defect. Patient Condition at Discharge: Stable Plan - Discharge Summary New Discharge Prescriptions: Hydrocodone/Acetaminophen [[place] 5-325] 1 - 2 each PO Q6HR PRN #30 tab PRN Reason: Pain Loratadine-Pseudoeph 5-120 mg [Claritin-D 12 HR] 1 each PO Q12HR #30 tab Discharge Medication List ALPRAZolam 1 mg PO HS 05/22/16 [History] Albuterol Sulfate [Proventil Hfa] 2 puff INHALATION RT-TID PRN 05/22/16 [History ] Esomeprazole Magnesium [NexIUM] 40 mg PO DAILY 05/22/16 [History] Sertraline HCl [Zoloft] 50 mg PO QAM 05/22/16 [History] Sertraline HCl [Zoloft] 100 mg PO HS 05/22/16 [History] Tiotropium [place] [Spiriva] 1 cap INHALATION RT-HS 05/22/16 [History] buPROPion SR [Wellbutrin Sr] 150 mg PO BID 05/22/16 [History] Tamsulosin HCl [Flomax] 0.4 mg PO DAILY #60 cap.er.24h 12/17/16 [Rx] Ca/D3/Mag#11/Zinc/[employer]/Juan/Bor [Caltrate 600+D Plus Tablet] 2 tab PO DAILY 01/21 [History] Multivitamin [Multivitamins Adult Gummies] 1 tab PO HS 01/21/17 [History] ALPRAZolam [Xanax] 0.5 mg PO QAM 01/31/17 [History] Docusate [Colace] 100 mg PO DAILY 02/11/17 [History] Hydrocodone/Acetaminophen [[place] 5-325] 1 - 2 each PO Q6HR PRN #30 tab 02/13/17 [Rx] Loratadine-Pseudoeph 5-120 mg [Claritin-D 12 HR] 1 each PO Q12HR #30 tab [Rx] Follow up Appointment(s)/Referral(s): Ashley Winter MD [STAFF PHYSICIAN] - 02/18/17 (Call to confirm time) Patient Instructions/Handouts: Lysis of Abdominal Adhesions (DC), Esophageal Dilation (DC) Activity/Diet/Wound Care/Special Instructions: No lifting over 4 pounds in 2 weeks. May shower. Discharge Disposition: HOME SELF-CARE
[2017-02-13] MEDS: ceFAZolin 2 GM in SODIUM CHLORIDE 0.9% 100 ML IVPB SCH (19:01)
[2017-02-13] MEDS: TIOTROPIUM 18 MCG/PUFF INHALER INHALATION SCH (19:21)
[2017-02-13] MEDS: LORATADINE-PSEUDOEPH 5-120 MG 1 EACH TAB.ER.12H PO SCH (21:04)
[2017-02-13] MEDS: SERTRALINE 100 MG TAB PO SCH (21:04)
[2017-02-13] MEDS: LORazepam 2 MG/ML SYRINGE IV PRN (21:19)
[2017-02-14 01:47] VITALS: BP 120/78; PULSE 92; RESP 16; TEMP 98
[2017-02-14] MEDS: ceFAZolin 2 GM in SODIUM CHLORIDE 0.9% 100 ML IVPB SCH (03:33)
[2017-02-14] MEDS: 0.9% NACL WITH KCL 40 MEQ/L 1,000 ML IV SCH (03:33)
[2017-02-14 06:56] LABS: Basophils % (A) 1 %; CH 29.8; CHCM 32.3; Eosinophils # (A) 0.6 k/uL (0-0.7); Eosinophils % (A) 9 %; HCT 39.4 % (34.0-46.0); HDW 2.68; HGB 12.8 gm/dL (11.4-16.0); Luc # (Auto) 0.13; Luc % (Auto) 2; Lymphocytes % (A) 16 %; MCH 30.1 pg (25.0-35.0); MCHC 32.4 g/dL (31.0-37.0); MCV 92.9 fL (80.0-100.0); Mean Platelet Volume 7.9; Monocytes # (A) 0.3 k/uL (0-1.0); Monocytes % (A) 5 %; Neutrophils # (A) 4.1 k/uL (1.3-7.7); Neutrophils % (A) 67 %; RBC 4.25 m/uL (3.80-5.40); RDW 14.7 % (11.5-15.5); WBC 6.2 k/uL (3.8-10.6); WBC (Perox) 6.76
[2017-02-14 07:04] LABS: Anion Gap 7 mmol/L; Blood Urea Nitrogen 5 mg/dL (7-17); Carbon Dioxide 26 mmol/L (22-30); Chloride 108 mmol/L (98-107); Magnesium 1.8 mg/dL (1.6-2.3); Non-African American GFR(MDRD) >60 (>60 ml/min/1.73 sqM); Phosphorous 3.8 mg/dL (2.5-4.5); Potassium 4.4 mmol/L (3.5-5.1); Sodium 141 mmol/L (137-145)
[2017-02-14] MEDS ORDERED: HYDROcodone/APAP 5-325MG 1 EACH TAB PO PRN (07:28)
[2017-02-14] MEDS: PANTOPRAZOLE 40 MG/10 ML VIAL IVP SCH (07:29)
[2017-02-14] MEDS: ENOXAPARIN 40 MG/0.4 ML SYRINGE SQ SCH (07:29)
[2017-02-14] MEDS: buPROPion SR 150 MG TABLET.ER PO SCH (07:30)
[2017-02-14] MEDS: TAMSULOSIN 0.4 MG CAP.ER.24H PO SCH (07:30)
[2017-02-14] MEDS: LORATADINE-PSEUDOEPH 5-120 MG 1 EACH TAB.ER.12H PO SCH (07:31)
[2017-02-14] MEDS: SERTRALINE 50 MG TAB PO SCH (07:31)
[2017-02-14] MEDS: SIMETHICONE 40 MG/0.6 ML DROPS 2,000 MG/30 ML BOTTLE PO SCH (07:31)
--- NOTE | 2017-02-23 16:52 | P.OP ---
Date of Procedure: 02/13/17 Description of Procedure: DATE OF SERVICE: 02/13/2017 SURGEON: BROOK BELLA MD PREOPERATIVE DIAGNOSES: 1. Persistent epigastric abdominal pain. 2. Personal history of small bowel obstruction. 3. History of Da-en-Y gastric bypass. 4. Gastrojejunal stricture. 5. History of nausea and vomiting. 6. Chronic obstructive pulmonary disease. 7. Chronic cough. 8. Gastroesophageal reflux disease, resolved. 9. History of obstructive sleep apnea. POSTOPERATIVE DIAGNOSES: 1. Persistent epigastric abdominal pain. 2. Personal history of small bowel obstruction. 3. History of Da-en-Y gastric bypass. 4. Gastrojejunal stricture. 5. History of nausea and vomiting. 6. Chronic obstructive pulmonary disease. 7. Chronic cough. 8. Gastroesophageal reflux disease, resolved. 9. History of obstructive sleep apnea. 10. Intestinal adhesions. 11. Internal hernia. OPERATION: 1. Laparoscopic lysis of adhesions over 1 hour. 2. Laparoscopic closure of the jejunojejunostomy mesenteric defect. ANESTHESIA: General with 30 mL 0.25% Marcaine with epinephrine. ESTIMATED BLOOD LOSS: 20 mL. SPECIMENS REMOVED: None. COMPLICATIONS: None. OPERATIVE FINDINGS: 1. Multiple adhesive bands with intestinal adhesions along the Da limb as well as the jejunojejunostomy. 2. Reopened mesenteric defect, closed without active small bowel obstruction. 3. No acute findings of small bowel obstruction identified. INDICATION: Irene Kinney is a 61-year-old female who is status post Da-en-Y gastric bypass a little over 2 months ago. She then presented to the office with acute onset epigastric abdominal pain followed by a chronic cough. She also has a personal history of recent intestinal small bowel obstruction over 2 to 3 weeks ago. Given the chronicity of her abdominal pain including generalized malaise and history of gastric bypass, diagnostic laparoscopy was advised. Benefits and risks of the procedure including bleeding, infection, small bowel resection, need for further surgery was also described at length. Informed consent was obtained. DESCRIPTION OF THE PROCEDURE: Patient was brought to the operating room, laid in supine position. After general induction, the abdomen had been prepped and draped in the standard sterile fashion. Prior to the incision, a timeout protocol was confirmed with surgical team regarding the patient's name including clinical procedure to be performed. Avalos catheter had also been placed. Preoperative antibiotics were also administered. Initial attention was brought to the epigastrium whereby a 0 degrees 5 mm laparoscopic trocar entry was performed. Another 5 mm trocar was initially placed along the left upper abdomen under direct visualization. The abdomen had been insufflated to 15 mmHg pressure, which she tolerated well. Diagnostic laparoscopy demonstrated no injury to bowel, visceral or mesentery. Another 5 mm trocar was then placed along the left lower abdomen. Moderate adhesions are found along the epigastrium including port site hernia of the right upper quadrant. Again, moderate adhesions were also found along the epigastrium. No acute or moderate small bowel dilatation was identified. Next using scissors, initial adhesions along the epigastrium are addressed using scissors. Care was taken to avoid any injury to the small bowel. Of the right upper quadrant, an incarcerated hernia was released. Similar adhesions were found along the left upper quadrant and also addressed using Sonicision. Attention was now brought to the epigastrium whereby the liver edge was crisp. No evidence of fatty liver disease was identified. Using atraumatic graspers, the liver edge was elevated of the left lobe of the liver, whereby the gastric pouch was identified. Mild adhesions were identified and also bluntly dissected free. Hemostasis had been checked. No evidence of leak or dilation of the gastric pouch was identified. Next attention was brought to the rest of the small bowel. The patient was repositioned with the right side up. The small bowel was inspected from the base of the cecum proximally to the jejunojejunostomy. The small bowel had varying features of decompression as well as mild dilation. Again, no responsible adhesions were identified. No evidence of intussusception was found. The small bowel was investigated in a retrograde fashion up to the jejunojejunostomy. At the jejunojejunostomy, multiple adhesions involving the Da limb, common channel and biliopancreatic limb was identified which was separate from her jejunojejunostomy. This actually caused an adhesive disease and reaction. Using a combination of disposable endoscopic scissors, the adhesion was completely free without full-thickness enterotomy. Next, the jejunojejunostomy mesenteric defect was investigated and found to be reopened given her moderate weight loss. The port along the left upper quadrant was exchanged for a 10 mm port. Using an Endo stitch with 2-0 silk, the jejunojejunostomy mesenteric defect was closed using a Lapra-Ty. Hemostasis was checked. At the end of the procedure, needle, sponge and instrument count had been verified correct by the instructor adjunct surgical technician. All instruments and pneumoperitoneum had been evacuated from the abdominal cavity. Local anesthetic was used to control for postop analgesia. The skin was reapproximated using 4-0 Monocryl. Skin was cleansed and Dermabond was applied. At the end of the procedure, the patient was transferred to the postanesthesia care unit in stable condition. Avalos catheter had been discontinued. Intraoperative findings were shared with the patient's family including care plan.
== END 2017-02-14 10:43 | disposition home or self-care (01) | DRG 331 ==
LOC: 3SUR 20:07
PROVIDERS: ADMIT Surgery Plastic and Reconstructive Surgery; ATTEND Surgery Plastic and Reconstructive Surgery
PROC: 0D768ZZ Dilation of Stomach, Via Natural or Artificial Opening Endoscopic (ICD-10-PCS; 2017-02-12)
PROC: 0DQA4ZZ Repair Jejunum, Percutaneous Endoscopic Approach (ICD-10-PCS; 2017-02-13)
PROC: 0DN94ZZ Release Duodenum, Percutaneous Endoscopic Approach (ICD-10-PCS; principal; 2017-02-13 12:00)
PROC: 0DN84ZZ Release Small Intestine, Percutaneous Endoscopic Approach (ICD-10-PCS; principal; 2017-02-13 12:00)
PROC: 0DNA4ZZ Release Jejunum, Percutaneous Endoscopic Approach (ICD-10-PCS; principal; 2017-02-13 12:00)
DX: K46.0 Unspecified abdominal hernia with obstruction, without gangrene (principal); K25.9 Gastric ulcer, unspecified as acute or chronic, without hemorrhage or perforation; J44.9 Chronic obstructive pulmonary disease, unspecified; R13.10 Dysphagia, unspecified; K66.0 Peritoneal adhesions (postprocedural) (postinfection); K31.89 Other diseases of stomach and duodenum; K21.9 Gastro-esophageal reflux disease without esophagitis; G47.33 Obstructive sleep apnea (adult) (pediatric); I83.90 Asymptomatic varicose veins of unspecified lower extremity; R11.2 Nausea with vomiting, unspecified; F32.9 Major depressive disorder, single episode, unspecified; G47.30 Sleep apnea, unspecified; E78.5 Hyperlipidemia, unspecified; F41.9 Anxiety disorder, unspecified; Z87.11 Personal history of peptic ulcer disease; Z85.828 Personal history of other malignant neoplasm of skin; Z79.899 Other long term (current) drug therapy; Z98.84 Bariatric surgery status; Z82.49 Family history of ischemic heart disease and other diseases of the circulatory system; Z71.3 Dietary counseling and surveillance; Z88.1 Allergy status to other antibiotic agents; Z87.891 Personal history of nicotine dependence; Z90.49 Acquired absence of other specified parts of digestive tract; Z30.2 Encounter for sterilization; Z87.19 Personal history of other diseases of the digestive system
CPT/HCPCS: 43249; 74020; 80051; 80053; 82150; 82310; 82565; 83690; 83735; 84100; 84520; 85025; 93005; 94640

== ENCOUNTER → 2017-04-30 | Outpatient (CLI) | payer MEDICARE, BC ==
[2017-04-30 13:51] VITALS: BP 133/66; PULSE 85; RESP 16; TEMP 98.4; BMI 26.1
[2017-04-30 17:05] LABS: Prothrombin Time 10.1 sec (9.0-12.0)
[2017-04-30 17:08] LABS: ALT 46 U/L (9-52); AST 26 U/L (14-36); Alkaline Phosphatase 128 U/L (38-126); Anion Gap 14 mmol/L; Blood Urea Nitrogen 15 mg/dL (7-17); Calcium 9.6 mg/dL (8.4-10.2); Carbon Dioxide 25 mmol/L (22-30); Chloride 106 mmol/L (98-107); Cholesterol 160 mg/dL (<200); Glucose 91 mg/dL (74-99); HDL Cholesterol 73 mg/dL (40-60); Iron 70 ug/dL (37-170); Magnesium 2.3 mg/dL (1.6-2.3); Non-African American GFR(MDRD) >60 (>60 ml/min/1.73 sqM); Phosphorous 4.2 mg/dL (2.5-4.5); Sodium 145 mmol/L (137-145); Total Bilirubin 0.4 mg/dL (0.2-1.3); Total Protein 6.8 g/dL (6.3-8.2)
[2017-04-30 17:09] LABS: CH 30.3; CHCM 33.7; HCT 41.1 % (34.0-46.0); HDW 2.58; HGB 13.9 gm/dL (11.4-16.0); MCH 30.7 pg (25.0-35.0); MCHC 33.9 g/dL (31.0-37.0); MCV 90.5 fL (80.0-100.0); Mean Platelet Volume 7.1; RBC 4.53 m/uL (3.80-5.40)
[2017-04-30 17:15] LABS: Partial Thromboplastin Time 22.2 sec (22.0-30.0)
[2017-04-30 17:21] LABS: Prealbumin 25 mg/dL (18-36); Total Iron Binding Capacity 314 ug/dL (265-497)
[2017-04-30 18:12] LABS: Vitamin B12 809 pg/mL (239-931)
[2017-04-30 20:46] LABS: Hemoglobin A1C 5.6 % (4.2-6.1)
[2017-05-06 16:44] LABS: Selenium 175 mcg/L (63-160)
--- NOTE | 2017-05-30 23:16 | P.PN ---
Progress Note - Text DATE OF SERVICE: 04/30/2017 CHIEF COMPLAINT: Bariatric assessment. HISTORY OF PRESENT ILLNESS: Irene Kinney is a 61-year-old female who is status post Da-en-Y gastric bypass with takedown Frecho fundoplasty on 2016. She reports complete resolution of her gastroesophageal reflux disease. She reports intermittent nausea as she often rushes to eat. Her nausea is worse especially with solid foods. She also reports intermittent epigastric abdominal pain. Otherwise, she is fairly happy with her weight loss. At her height of 5 feet 7-1/2 inches, her highest weight was 249 pounds. Her body mass index was 38.4. Her ideal body weight is 158 pounds. She has lost a total of 80 pounds lifetime. She has lost 42 pounds in 4 months. Today she comes in weighing 169 pounds. PAST MEDICAL HISTORY: 1. Chronic obstructive pulmonary disease. 2. Moderate to severe sleep apnea. 3. Gastroesophageal reflux disease. 4. Hyperlipidemia. 5. Chronic bronchitis. 6. Anxiety. 7. Depression. 8. Osteoarthritis. PAST SURGICAL HISTORY: 1. Fercho fundoplasty. 2. Upper endoscopy. 3. Tubal ligation. 4. Cholecystectomy. 5. Gastric bypass. MEDICATIONS: 1. Wellbutrin 2. Co-Q10 3. Spiriva 4. Zocor 5. Zoloft 6. Multivitamin 7. DuoNeb 8. Flonase 9. Nexium 10. Vitamin D3 11. Aspirin 12. Proventil 13. Alprazolam. ALLERGIES: ERYTHROMYCIN. SOCIAL HISTORY: Past tobacco abuse. FAMILY HISTORY: Pertinent for hypertension. REVIEW OF SYSTEM: CONSTITUTIONAL: At her height of 5 feet 7-1/2 inches, her highest weight was 249 pounds. Her body mass index was 38.4. Her ideal body weight is 158 pounds. She has lost a total of 80 pounds lifetime. She has lost 42 pounds in 4 months. Today she comes in weighing 169 pounds. GASTROINTESTINAL: Severe gastroesophageal reflux disease now resolved. RESPIRATORY: Severe COPD. History of sleep apnea. MUSCULOSKELETAL: Has osteoarthritis of the lower back including bilateral hips and knees just improve the weight loss. ENDOCRINE: No reports of thyroid disorder or glucose intolerance. CARDIOVASCULAR: History of hyperlipidemia. Also has hypertension. NEURO: No reports of stroke or seizure disorder. PSYCH: History of depression without suicidal ideation. History of anxiety. HEMATOLOGIC: No reports of DVTs or easy bruising or bleeding. HEENT: No reports of dysphagia, troubles with hearing or nosebleeds. PHYSICAL EXAM: VITAL SIGNS: 169 pounds, body mass index of 26.1. Vital Signs Temp 98.4 F 04/30/17 13:38 Pulse 85 04/30/17 13:38 Resp 16 04/30/17 13:38 BP 133/66 04/30/17 13:38 Pulse Ox GENERAL: Well-developed female, no acute distress. ABDOMEN: Soft, nondistended. Minimal tenderness along the epigastrium. HEENT: No scleral icterus. Extraocular movements grossly intact. Moist buccal mucosa. NECK: Supple without lymphadenopathy. CHEST: Nonlabored respirations. Equal bilateral excursions. CARDIOVASCULAR: Regular rate and rhythm. MUSCULOSKELETAL: No clubbing, cyanosis, or edema. NEURO: No focal or lateralizing signs. Cranial nerves II - 12 grossly intact. PSYCH: Appropriate affect. Alert and oriented to person, place, and time. LABS: Laboratory Last Values WBC 8.0 k/uL (3.8-10.6) 04/30/17 15:57 RBC 4.53 m/uL (3.80-5.40) 04/30/17 15:57 Hgb 13.9 gm/dL (11.4-16.0) 04/30/17 15:57 Hct 41.1 % (34.0-46.0) 04/30/17 15:57 MCV 90.5 fL (80.0-100.0) 04/30/17 15:57 MCH 30.7 pg (25.0-35.0) 04/30/17 15:57 MCHC 33.9 g/dL (31.0-37.0) 04/30/17 15:57 RDW 16.0 % (11.5-15.5) H 04/30/17 15:57 Plt Count 237 k/uL (150-450) 04/30/17 15:57 PT 10.1 sec (9.0-12.0) 04/30/17 15:57 INR 1.0 (<1.1) 04/30/17 15:57 APTT 22.2 sec (22.0-30.0) 04/30/17 15:57 Sodium 145 mmol/L (137-145) 04/30/17 15:57 Potassium 4.0 mmol/L (3.5-5.1) 04/30/17 15:57 Chloride 106 mmol/L (98-107) 04/30/17 15:57 Carbon Dioxide 25 mmol/L (22-30) 04/30/17 15:57 Anion Gap 14 mmol/L 04/30/17 15:57 BUN 15 mg/dL (7-17) 04/30/17 15:57 Creatinine 0.80 mg/dL (0.52-1.04) 04/30/17 15:57 Est GFR (MDRD) Af Amer >60 (>60 ml/min/1.73 sqM) 04/30/17 15:57 Est GFR (MDRD) Non-Af >60 (>60 ml/min/1.73 sqM) 04/30/17 15:57 Glucose 91 mg/dL (74-99) 04/30/17 15:[address] Glu mg/dL 114 mg/dL 04/30/17 15:57 Hemoglobin A1c 5.6 % (4.2-6.1) 04/30/17 15:57 Calcium 9.6 mg/dL (8.4-10.2) 04/30/17 15:57 Phosphorus 4.2 mg/dL (2.5-4.5) 04/30/17 15:57 Magnesium 2.3 mg/dL (1.6-2.3) 04/30/17 15:57 Iron 70 ug/dL (37-170) 04/30/17 15:57 TIBC 314 ug/dL (265-497) 04/30/17 15:57 Ferritin 31 ng/mL (11-264) 04/30/17 15:57 Total Bilirubin 0.4 mg/dL (0.2-1.3) 04/30/17 15:57 AST 26 U/L (14-36) 04/30/17 15:57 ALT 46 U/L (9-52) 04/30/17 15:57 Alkaline Phosphatase 128 U/L (38-126) H 04/30/17 15:57 Total Protein 6.8 g/dL (6.3-8.2) 04/30/17 15:57 Albumin 4.4 g/dL (3.5-5.0) 04/30/17 15:57 Prealbumin 25 mg/dL (18-36) 04/30/17 15:57 Triglycerides 109 mg/dL (<150) 04/30/17 15:57 Cholesterol 160 mg/dL (<200) 04/30/17 15:57 LDL Cholesterol, Calc 65 mg/dL (0-99) 04/30/17 15:57 HDL Cholesterol 73 mg/dL (40-60) H 04/30/17 15:57 Vitamin A 52 ug/dL (38-106) 04/30/17 15:57 Vitamin B1 60 ug/L (38-122) 04/30/17 15:57 Vitamin B12 809 pg/mL (239-931) 04/30/17 15:57 Vitamin D 25-Hydroxy 50.2 ng/mL (30.0-100.0) 04/30/17 15:57 Folate 18.30 ng/mL (>2.75) 04/30/17 15:57 TSH 1.460 mIU/L (0.465-4.680) 04/30/17 15:57 PTH Intact 31.9 pg/mL (14.0-72.0) 04/30/17 15:57 Copper 1494 ug/L (810-1990) 04/30/17 15:57 Selenium 175 mcg/L (63-160) H 04/30/17 15:57 Zinc 64 ug/dL (60-130) 04/30/17 15:57 . ASSESSMENT: 1. Morbid obesity due to excess caloric intake. 2. Body mass index reduced from 38.4 to 26.1. 3. Hypertensive heart disease, improved. 4. Chronic obstructive pulmonary disease. 5. Obstructive sleep apnea, improved. 6. Hyperlipidemia. 7. Depression. 8. Anxiety disorder. 9. History of gastroesophageal reflux disease, resolved. 10. History of recurrent diaphragmatic hiatal hernia. 11. Dietary surveillance and counseling. 12. Osteoarthritis of lower back, improved. 13. Osteoarthritis of the bilateral hips, improved. 14. Hypertension, improved. 15. Dietary surveillance and counseling. PLAN: 1. On further discussion, she has moderate sugar. She has risk of dumping syndrome. 2. Recommend upper endoscopy with balloon dilatation. 3. She is complaining a bariatric metabolic panel. 4. Recommend continued multivitamin. 5. Overall, she is very pleased with weight loss as well as resolution of her reflux disease.
== END ==
LOC: BARWHC3 13:18
PROVIDERS: ATTEND Surgery Plastic and Reconstructive Surgery
DX: Z48.815 Encounter for surgical aftercare following surgery on the digestive system (principal); E66.01 Morbid (severe) obesity due to excess calories; I11.9 Hypertensive heart disease without heart failure; K90.89 Other intestinal malabsorption; D50.8 Other iron deficiency anemias; J44.9 Chronic obstructive pulmonary disease, unspecified; G47.33 Obstructive sleep apnea (adult) (pediatric); E78.5 Hyperlipidemia, unspecified; F32.9 Major depressive disorder, single episode, unspecified; K44.9 Diaphragmatic hernia without obstruction or gangrene; M47.816 Spondylosis without myelopathy or radiculopathy, lumbar region; M16.0 Bilateral primary osteoarthritis of hip; I10 Essential (primary) hypertension; Z79.899 Other long term (current) drug therapy; Z79.82 Long term (current) use of aspirin; Z88.1 Allergy status to other antibiotic agents; Z98.84 Bariatric surgery status; Z68.26 Body mass index [BMI] 26.0-26.9, adult
CPT/HCPCS: 84255; 84134; 84425; 80061; 80053; 82607; 82728; 83036; 82525; 82746; 83540; 83550; 83735; 84100; 84443; 84590; 84630; 85027; 85610; 85730; 82306; 83970; 36415; G0463; 99211

== ENCOUNTER 2017-05-07 10:52 | Day surgery (SDC) | payer MEDICARE, BC ==
[2017-05-02 10:34] VITALS: BMI 26.4
--- NOTE | 2017-05-07 10:06 | P.GSHP ---
History of Present Illness H&P Date: 05/07/17 CHIEF COMPLAINT: GERD HISTORY OF PRESENT ILLNESS: The patient is a 62-year-old female who presents reports gastroesophageal reflux disease. Upper endoscopy was offered for further evaluation and management. PAST MEDICAL HISTORY: Please see list. PAST SURGICAL HISTORY: Please see list. MEDICATIONS: Please see list. ALLERGIES: Please see list. SOCIAL HISTORY: No illicit drug use FAMILY HISTORY: No reports of Crohn disease or ulcerative colitis. REVIEW OF ORGAN SYSTEMS: CONSTITUTIONAL: No reports of fevers or chills. GI: Denies any blood in stools or constipation. PHYSICAL EXAM: VITAL SIGNS: Stable GENERAL: Well-developed and pleasant in no acute distress. HEENT: No scleral icterus. Extraocular movements grossly intact. Moist buccal mucosa. NECK: Supple without lymphadenopathy. CHEST: Unlabored respirations. Equal bilateral excursions. CARDIOVASCULAR: Regular rate and rhythm. Distal 2+ pulses. ABDOMEN: Soft, nondistended. MUSCULOSKELETAL: No clubbing, cyanosis, or edema. ASSESSMENT: 1. Gastroesophageal reflux disease PLAN: 1. Recommend proceeding with an upper endoscopy Past Medical History Past Medical History: Cancer, COPD, GERD/Reflux, Hyperlipidemia, Respiratory Disorder, Sleep Apnea/CPAP/BIPAP Additional Past Medical History / Comment(s): chronic bronchitis, varicose veins , hx ulcers, hx skin cancer, uses C-Pap, recent admission for nausea/vomiting, possible "blockage" per pt. History of Any Multi-Drug Resistant Organisms: None Reported Past Surgical History: Bariatric Surgery, Cholecystectomy, Tubal Ligation Additional Past Surgical History / Comment(s): maverick fundoplication and Gastric bypass Da-en-y 12/05/16-pt stated "has lost 35# since sx". egd/dilation Past Anesthesia/Blood Transfusion Reactions: No Reported Reaction Past Psychological History: Anxiety, Depression Smoking Status: Former smoker Past Alcohol Use History: None Reported Additional Past Alcohol Use History / Comment(s): Smoked 2 1/2 PPD for 40 years , quit in 2012. Past Drug Use History: None Reported - Past Family History Mother Family Medical History: Hypertension Father Family Medical History: No Reported History Additional Family Medical History / Comment(s): mom had hypertension. Medications and Allergies Home Medications Medication Instructions Recorded Confirmed Type ALPRAZolam 1 mg PO HS 05/22/16 05/02/17 History Albuterol Sulfate [Proventil Hfa] 2 puff INHALATION RT-TID PRN 05/22/16 History Esomeprazole Magnesium [NexIUM] 40 mg PO DAILY 05/22/16 05/02/17 History Sertraline HCl [Zoloft] 50 mg PO QAM 05/22/16 05/02/17 History Sertraline HCl [Zoloft] 100 mg PO HS 05/22/16 05/02/17 History Tiotropium [place] [Spiriva] 1 cap INHALATION RT-HS 05/22/16 05/02/17 History buPROPion SR [Wellbutrin Sr] 150 mg PO BID 05/22/16 05/02/17 History Slick/D3/Mag11/Zinc/Wood [employer] Flap Trimmer/Juan/Bor 2 tab PO DAILY 01/21/17 05/02/17 History [Caltrate 600+D Plus Tablet] Docusate [Colace] 100 mg PO DAILY 02/11/17 05/02/17 History Multivitamins, Thera [Multivitamin 1 tab PO DAILY 04/30/17 05/02/17 History (formulary)] Fluticasone/Vilanterol [Breo 1 inhalation PO QAM 05/02/17 05/02/17 History Ellipta 100-25 Mcg Inhaler] L.acidoph,Paracasei, B.lactis 1 each PO DAILY 05/02/17 05/02/17 History [Probiotic] Allergies Allergy/AdvReac Type Severity Reaction Status Date / Time erythromycin base AdvReac Diarrhea Verified 05/02/17 10:28
[~2017-05-07 10:52] MED LIST changes: -CHLORHEXIDINE GLUCONATE 15 ML CUP MUCOUS MEM ONE; -DEXAMETHASONE SOD PHOSPHATE 10 MG/ML 1 ML VIAL IV ONE; -ENOXAPARIN 40 MG/0.4 ML SYRINGE SQ STA; -HYDROmorphone 1 MG/ML 1 ML SYRINGE IVP PRN; +LACTATED RINGERS 1,000 ML IV SCH; +LIDOCAINE 1% 20 ML VIAL (10MG/ML) FOR IV START INTRADERMA PRN; -MIDAZOLAM 2 MG/2 ML VIAL IV PRN; -PANTOPRAZOLE 40 MG/10 ML VIAL IV STA; -ceFAZolin 2 GM in SODIUM CHLORIDE 0.9% 100 ML IVPB ONE
[2017-05-07 11:17] VITALS: RESP 18; TEMP 98.2
[2017-05-07] MEDS ORDERED: LACTATED RINGERS 1,000 ML IV ONE (11:17)
[2017-05-07] MEDS ORDERED: LIDOCAINE 1% INJ 10MG/ML (20 ML MDV) ONE (11:44)
[2017-05-07] MEDS ORDERED: PROPOFOL 10 MG/ML 20 ML VIAL IV ONE (11:44)
[2017-05-07 12:22] VITALS: BP 114/67; PULSE 68
--- NOTE | 2017-05-07 13:30 | P.OP ---
Date of Procedure: 05/07/17 Preoperative Diagnosis: Postoperative Diagnosis: Procedure(s) Performed: Implants: Indications for Procedure: Operative Findings: Description of Procedure: PREOPERATIVE DIAGNOSIS: Dysphagia. Nausea with vomiting. History of stomach stenosis. POSTOPERATIVE DIAGNOSIS: Dysphagia. Nausea with vomiting. History of stomach stenosis. Gastrojejunal stricture without ulcer. OPERATION: Esophagogastrojejunoscopy with balloon dilatation from 15 to 20 mm. SURGEON: Ashley Winter MD ANESTHESIA: MAC. INDICATIONS: The patient is a 63-year-old female who presents with a history of dysphagia with previous history of gastrojejunal stricture. Benefits and risks of the procedure were described. Informed consent was obtained. DESCRIPTION: The patient was brought into the endoscopy suite and laid in the left lateral decubitus position. After a timeout was confirmed, the procedure was initiated. An Olympus gastroscope was passed along the posterior oropharynx down to the distal esophagus where the squamocolumnar junction was unremarkable. The gastric pouch was entered. A gastrojejunal stricture of 15 mm was found as the adult gastroscope was 9.5 mm in size. A [employer] balloon dilator was placed through the scope. Final insufflation up to 20 mm was performed with a total of 2 minutes. The scope was advanced up to 60 cm from the incisors into the Da limb. The mucosa of the gastrojejunal anastomosis was intact. No chronic gastrojejunal marginal ulcer was encountered. No full-thickness injury was encountered. The GI tract was desufflated. The patient tolerated the procedure well. FINDINGS: Squamocolumnar junction unremarkable at 37 cm. Stricture of approximately 15 mm encountered. Chronic gastrojejunal ulceration encountered. Successful balloon dilatation to 20 mm. Diaphragmatic hiatus at 40 cm. Gastric pouch 3 cm. RECOMMENDATIONS: Upper endoscopy as needed. Plan - Discharge Summary New Discharge Prescriptions: No Action ALPRAZolam 1 mg PO HS Esomeprazole Magnesium [NexIUM] 40 mg PO DAILY Albuterol Sulfate [Proventil Hfa] 2 puff INHALATION RT-TID PRN PRN Reason: Shortness Of Breath Sertraline HCl [Zoloft] 50 mg PO QAM buPROPion SR [Wellbutrin Sr] 150 mg PO BID Sertraline HCl [Zoloft] 100 mg PO HS Tiotropium [place] [Spiriva] 1 cap INHALATION RT-HS Slick/D3/Mag11/Zinc/Dishwasher Busser/Juan/Bor [Caltrate 600+D Plus Tablet] 2 tab PO DAILY Docusate [Colace] 100 mg PO DAILY Loratadine-Pseudoeph 5-120 mg [Claritin-D 12 HR] 1 each PO Q12HR #30 tab Multivitamins, Thera [Multivitamin (formulary)] 1 tab PO DAILY Fluticasone/Vilanterol [Breo Ellipta 100-25 Mcg Inhaler] 1 inhalation PO QAM L.acidoph,Paracasei, B.lactis [Probiotic] 1 each PO DAILY Discharge Medication List ALPRAZolam 1 mg PO HS 05/22/16 [History] Albuterol Sulfate [Proventil Hfa] 2 puff INHALATION RT-TID PRN 05/22/16 [History ] Esomeprazole Magnesium [NexIUM] 40 mg PO DAILY 05/22/16 [History] Sertraline HCl [Zoloft] 50 mg PO QAM 05/22/16 [History] Sertraline HCl [Zoloft] 100 mg PO HS 05/22/16 [History] Tiotropium [place] [Spiriva] 1 cap INHALATION RT-HS 05/22/16 [History] buPROPion SR [Wellbutrin Sr] 150 mg PO BID 05/22/16 [History] Slick/D3/Mag11/Zinc/Dishwasher Busser/Juan/Bor [Caltrate 600+D Plus Tablet] 2 tab PO DAILY 01/21 [History] Docusate [Colace] 100 mg PO DAILY 02/11/17 [History] Loratadine-Pseudoeph 5-120 mg [Claritin-D 12 HR] 1 each PO Q12HR #30 tab [Rx] Multivitamins, Thera [Multivitamin (formulary)] 1 tab PO DAILY 04/30/17 [History ] Fluticasone/Vilanterol [Breo Ellipta 100-25 Mcg Inhaler] 1 inhalation PO QAM [History] L.acidoph,Paracasei, B.lactis [Probiotic] 1 each PO DAILY 05/02/17 [History] Follow up Appointment(s)/Referral(s): Ashley Winter MD [STAFF PHYSICIAN] - 05/14/17 ([place]) Patient Instructions/Handouts: *Surgery [facility] - (Anesthesia) Endoscopy Discharge Instructions, Upper Endoscopy (DC), Esophageal Dilation (DC) Activity/Diet/Wound Care/Special Instructions: REST TODAY RESUME HOME MEDS CLEAR LIQUIDS ADVANCE TO FULL ,, THAN SOFT DIET FOR DINNER. Discharge Disposition: HOME SELF-CARE
== END 2017-05-07 13:36 | disposition home or self-care (01) ==
LOC: ORWHC2ENDO 10:52
PROVIDERS: ATTEND Surgery Plastic and Reconstructive Surgery
DX: K31.89 Other diseases of stomach and duodenum (principal); K25.7 Chronic gastric ulcer without hemorrhage or perforation; R11.2 Nausea with vomiting, unspecified; K21.9 Gastro-esophageal reflux disease without esophagitis; Z98.84 Bariatric surgery status; J44.9 Chronic obstructive pulmonary disease, unspecified; E78.5 Hyperlipidemia, unspecified; G47.30 Sleep apnea, unspecified; Z99.89 Dependence on other enabling machines and devices; F41.9 Anxiety disorder, unspecified; F32.9 Major depressive disorder, single episode, unspecified; Z79.51 Long term (current) use of inhaled steroids; Z79.899 Other long term (current) drug therapy; Z87.891 Personal history of nicotine dependence
CPT/HCPCS: 43249; J2001; J2704; C1726

== ENCOUNTER 2017-11-24 15:48 | Inpatient (IN) | payer MEDICARE, BC ==
[2017-11-24] MEDS ORDERED: ONDANSETRON 4 MG/2 ML VIAL IVP PRN (16:24)
[2017-11-24] MEDS ORDERED: HYDROmorphone 2 MG/ML 1 ML SYRINGE IVP PRN (16:24)
[2017-11-24] MEDS ORDERED: METOCLOPRAMIDE 5 MG/ML 2 ML VIAL IVP PRN (16:24)
[2017-11-24] MEDS ORDERED: NALOXONE 0.4 MG/ML 1 ML VIAL IV PRN (16:24)
--- NOTE | 2017-11-24 16:24 | P.GSHP ---
History of Present Illness H&P Date: 11/24/17 CHIEF COMPLAINT: Small bowel obstruction HISTORY OF PRESENT ILLNESS: The patient is a 62-year-old female with a previous history of a Da-en-Y gastric bypass over 1 year ago. She has done remarkably well loosing over 100 pounds. She reports one-week agol developing increased right lower quadrant abdominal pain initially mild however today severe. She attributes this to gas. She saw her primary care provider at [facility] who ordered a computed tomography scan. A computed tomography scan was obtained demonstrated inflammatory changes along the right lower quadrant where obstruction cannot be ruled out. She presents with intermittent nausea. She has decreased passage of flatus. Clinical findings are consistent with bowel obstruction hence her admission. PAST MEDICAL HISTORY: 1. Chronic obstructive pulmonary disease. 2. Moderate to severe sleep apnea. 3. Gastroesophageal reflux disease, resolved. 4. Hyperlipidemia. 5. Chronic bronchitis. 6. Anxiety. 7. Depression. 8. Osteoarthritis. PAST SURGICAL HISTORY: 1. Fercho fundoplasty. 2. Upper endoscopy. 3. Tubal ligation. 4. Cholecystectomy. 5. Gastric bypass. MEDICATIONS: 1. Wellbutrin 2. Claritin-D 3. Zocor 4. Zoloft 5. Multivitamin 6. Breo ellipta 7. Nexium 8. Vitamin D+Calcium 9. Proventil 10. Alprazolam. ALLERGIES: ERYTHROMYCIN. SOCIAL HISTORY: Past tobacco abuse. FAMILY HISTORY: Pertinent for hypertension. REVIEW OF SYSTEM: CONSTITUTIONAL: Denies any fever or chills. Intentional weight loss over 100 pounds. At her height of 5 feet 7-1/2 inches, her highest weight was 249 pounds. Her body mass index was 38.4. Her ideal body weight is 158 pounds. Today she comes in weighing 145 pounds. Total weight loss 104 pounds in 1 year , lifetime. She has lost 24 pounds in several months. GASTROINTESTINAL: Severe gastroesophageal reflux disease now resolved. RESPIRATORY: Severe COPD. History of sleep apnea. MUSCULOSKELETAL: Has osteoarthritis of the lower back including bilateral hips and knees improve with weight loss. ENDOCRINE: No reports of thyroid disorder or glucose intolerance. CARDIOVASCULAR: History of hyperlipidemia. Also has hypertension. All improved. NEURO: No reports of stroke or seizure disorder. PSYCH: History of depression without suicidal ideation. History of anxiety. HEMATOLOGIC: No reports of DVTs or easy bruising or bleeding. HEENT: No reports of dysphagia, troubles with hearing or nosebleeds. SKIN: No skin cancer. No diffuse rash. PHYSICAL EXAM: VITAL SIGNS: 145 pounds, body mass index of 22.8 Vital Signs Temp 97.9 F 11/24/17 15:53 Pulse 100 11/24/17 15:53 Resp BP 152/76 11/24/17 15:53 Pulse Ox Intake & Output 11/23/17 11/24/17 11/24/17 18:59 06:59 18:59 Weight 66.043 kg GENERAL: Well-developed female, mild distress. ABDOMEN: Soft, nondistended. Mild tenderness along the right lower and upper abdomen. HEENT: No scleral icterus. Extraocular movements grossly intact. Moist buccal mucosa. NECK: Supple without lymphadenopathy. CHEST: Nonlabored respirations. Equal bilateral excursions. CARDIOVASCULAR: Tachycardic. Palpable 2+ pulses. MUSCULOSKELETAL: No clubbing, cyanosis, or edema. NEURO: No focal or lateralizing signs. Cranial nerves II - 12 grossly intact. PSYCH: Appropriate affect. Alert and oriented to person, place, and time. SKIN: Well perfused. Slow skin turgor. STUDIES: I personally reviewed her films from [place] demonstrating a mesenteric swirl along the right upper quadrant consistent with internal volvulus and internal hernia as a site for obstruction. ASSESSMENT: 1. Internal hernia with bowel obstruction. 2. Small bowel volvulus. 3. History of Da-en-Y gastric bypass. 4. Right upper quadrant abdominal pain. 5. Right lower quadrant abdominal pain. 6. Chronic obstructive pulmonary disease. 7. Anxiety disorder. PLAN: 1. Her clinical findings including computed tomography scan are consistent with internal hernia causing bowel obstruction. Recommended immediate admission for inpatient admission anticipated for 2 nights. 2. DVT prophylaxis. 3. Antibiotic prophylaxis. 4. Will need diagnostic laparoscopy with reduction of small bowel obstruction including closure of internal hernia. 5. Benefits and risks of surgical intervention were described including clinical care plan which she and her demonstrated understanding. Past Medical History Past Medical History: Cancer, COPD, GERD/Reflux, Hyperlipidemia, Respiratory Disorder, Sleep Apnea/CPAP/BIPAP Additional Past Medical History / Comment(s): chronic bronchitis, varicose veins , hx ulcers, hx skin cancer, uses C-Pap, recent admission for nausea/vomiting, possible "blockage" per pt. History of Any Multi-Drug Resistant Organisms: None Reported Past Surgical History: Bariatric Surgery, Cholecystectomy, Tubal Ligation Additional Past Surgical History / Comment(s): fercho fundoplication and Gastric bypass Da-en-y 12/05/16-pt stated "has lost 35# since sx". egd/dilation Past Anesthesia/Blood Transfusion Reactions: No Reported Reaction Past Psychological History: Anxiety, Depression Smoking Status: Former smoker Past Alcohol Use History: None Reported Past Drug Use History: None Reported - Past Family History Mother Family Medical History: Hypertension Father Family Medical History: No Reported History Additional Family Medical History / Comment(s): mom had hypertension. Medications and Allergies Home Medications Medication Instructions Recorded Confirmed Type ALPRAZolam 1 mg PO HS 05/22/16 11/24/17 History Albuterol Sulfate [Proventil Hfa] 2 puff INHALATION RT-TID PRN 05/22/16 History Esomeprazole Magnesium [NexIUM] 40 mg PO DAILY 05/22/16 11/24/17 History Sertraline HCl [Zoloft] 50 mg PO QAM 05/22/16 11/24/17 History Sertraline HCl [Zoloft] 100 mg PO HS 05/22/16 11/24/17 History Tiotropium [place] [Spiriva] 1 cap INHALATION RT-HS 05/22/16 11/24/17 History buPROPion SR [Wellbutrin Sr] 150 mg PO BID 05/22/16 11/24/17 History Slick/D3/Mag11/Zinc/[employer]/Juan/Bor 2 tab PO DAILY 01/21/17 11/24/17 History [Caltrate 600+D Plus Tablet] Docusate [Colace] 100 mg PO DAILY 02/11/17 11/24/17 History Loratadine-Pseudoeph 5-120 mg 1 each PO Q12HR #30 tab 03/13/17 11/24/17 Rx [Claritin-D 12 HR] Multivitamins, Thera [Multivitamin 1 tab PO DAILY 04/30/17 11/24/17 History (formulary)] Fluticasone/Vilanterol [Breo 1 inhalation PO QAM 05/02/17 11/24/17 History Ellipta 100-25 Mcg Inhaler] L.acidoph,Paracasei, B.lactis 1 each PO DAILY 05/02/17 11/24/17 History [Probiotic] Allergies Allergy/AdvReac Type Severity Reaction Status Date / Time erythromycin base AdvReac Diarrhea Verified 11/24/17 13:59
[2017-11-24 16:49] LABS: Basophils # (A) 0.1 k/uL (0-0.2); Basophils % (A) 1 %; Eosinophils # (A) 0.5 k/uL (0-0.7); Eosinophils % (A) 9 %; HCT 39.5 % (34.0-46.0); HGB 12.9 gm/dL (11.4-16.0); Lymphocytes # (A) 1.9 k/uL (1.0-4.8); Lymphocytes % (A) 30 %; MCH 31.5 pg (25.0-35.0); MCHC 32.7 g/dL (31.0-37.0); MCV 96.3 fL (80.0-100.0); Mean Platelet Volume 6.8; Monocytes # (A) 0.4 k/uL (0-1.0); Monocytes % (A) 6 %; Neutrophils # (A) 3.3 k/uL (1.3-7.7); Neutrophils % (A) 52 %; Platelet Count 222 k/uL (150-450); RDW 12.5 % (11.5-15.5); WBC 6.3 k/uL (3.8-10.6)
[2017-11-24 16:56] LABS: Anion Gap 11 mmol/L; Blood Urea Nitrogen 12 mg/dL (7-17); Calcium 9.5 mg/dL (8.4-10.2); Carbon Dioxide 27 mmol/L (22-30); Chloride 100 mmol/L (98-107); Glucose 85 mg/dL (74-99); Phosphorus 4.4 mg/dL (2.5-4.5); Potassium 3.9 mmol/L (3.5-5.1); Sodium 138 mmol/L (137-145)
[2017-11-24] MEDS: PANTOPRAZOLE 40 MG/10 ML VIAL IV SCH (17:42)
[2017-11-24] MEDS: SODIUM CHLORIDE 0.9% 1,000 ML IV SCH ×2 (17:42→18:58)
[2017-11-24] MEDS: HEPARIN SODIUM,PORCINE 5,000 UNIT/ML 1 ML VIAL SQ SCH (21:46)
[2017-11-25] MEDS: SODIUM CHLORIDE 0.9% 1,000 ML IV SCH ×2 (07:38→20:42)
[2017-11-25] MEDS: PANTOPRAZOLE 40 MG/10 ML VIAL IV SCH (08:47)
[2017-11-25] MEDS: HEPARIN SODIUM,PORCINE 5,000 UNIT/ML 1 ML VIAL SQ SCH ×2 (08:47→20:42)
--- NOTE | 2017-11-25 15:55 | P.HPADDEND ---
H&P Addendum H&P Addendum Date: 11/25/17 Benefits and risks of surgery described for reduction and repair of internal hernia. All questions reviewed.
[2017-11-25] MEDS ORDERED: IV FLUID CONTINUATION 350 ML IV ONE (16:02)
[2017-11-25] MEDS ORDERED: MIDAZOLAM 2 MG/2 ML VIAL IV PRN (16:04)
[2017-11-25] MEDS ORDERED: DEXAMETHASONE SOD PHOSPHATE 10 MG/ML 1 ML VIAL IV ONE (16:04)
[2017-11-25] MEDS ORDERED: HYDROmorphone 4 MG/ML 1 ML SYRINGE IVP PRN ×2 (16:04→18:45)
[2017-11-25] MEDS ORDERED: ceFAZolin IN SWFI 2 GM/20 ML SYRINGE IVP STA (16:13)
[2017-11-25] MEDS ORDERED: LACTATED RINGERS 1,000 ML IV SCH (16:15)
[2017-11-25] MEDS ORDERED: HYDROmorphone (PF) 1 MG/ML ONE (16:51)
[2017-11-25] MEDS ORDERED: NEOSTIGMINE 1 MG/ML 10 ML VIAL ONE (16:51)
[2017-11-25] MEDS ORDERED: GLYCOPYRROLATE 0.2 MG/ML 2 ML VIAL ONE (16:51)
[2017-11-25] MEDS ORDERED: ROCURONIUM BROMIDE 10 MG/ML 10 ML VIAL IV ONE (16:51)
[2017-11-25] MEDS ORDERED: LIDOCAINE 1% INJ 10MG/ML (20 ML MDV) ONE (16:51)
[2017-11-25] MEDS ORDERED: fentaNYL (PF) 50 MCG/ML 2 ML AMP ONE (16:51)
[2017-11-25] MEDS ORDERED: PHENYLEPHRINE-0.9% NACL SYG 1 MG/10 ML SYRINGE ONE (16:51)
[2017-11-25] MEDS ORDERED: PROPOFOL 10 MG/ML 20 ML VIAL IV ONE (16:51)
[2017-11-25] MEDS ORDERED: MIDAZOLAM 2 MG/2 ML VIAL ONE (16:51)
[2017-11-25] MEDS ORDERED: SUCCINYLCHOLINE CHLORIDE 100 MG/5 ML SYR IV ONE (16:51)
[2017-11-25] MEDS ORDERED: LACTATED RINGERS 1,000 ML IV ONE (17:10)
[2017-11-25] MEDS ORDERED: BUPIVACAINE (PF) 0.25% 30 ML VIAL SQ ONE (17:13)
[2017-11-25] MEDS ORDERED: oxyCODONE-APAP 5-325MG 1 EACH TAB PO PRN (18:38)
--- NOTE | 2017-11-25 18:38 | P.PCN ---
Date of Procedure: 11/25/17 Preoperative Diagnosis: Abdominal pain, bowel obstruction Postoperative Diagnosis: Same, internal hernia involving hepatic fossa and splenic flexure, small bowel volvulus involving the jejunum, adhesive day and disease from previous cholecystectomy Procedure(s) Performed: Laparoscopic lysis of adhesions, reduction of small bowel volvulus, reduction of internal hernia, excision of adhesive band right upper quadrant Anesthesia: ARIELA, local Surgeon: Ashley Winter Estimated Blood Loss (ml): 5 Pathology: other (Adhesive band disease) Condition: stable Disposition: floor Operative Findings: Internal hernia involving cecum including an adhesion of the hepatic fossa, adhesive band causing bowel obstruction including incarceration of cecum and hepatic flexure, moderate redundant sigmoid colon including moderate redundant splenic flexure and moderate redundant sigmoid colon, no hernias along the previous [place] defect, no hernias along the previous jejunojejunostomy
[2017-11-25] MEDS ORDERED: ALBUTEROL NEBULIZED 2.5 MG/3 ML INHALATION PRN (18:42)
[2017-11-25] MEDS: IPRATROPIUM 0.5 MG/2.5 ML NEBU INHALATION SCH (19:44)
[2017-11-25] MEDS: SERTRALINE 100 MG TAB PO SCH (20:42)
[2017-11-25] MEDS: buPROPion SR 150 MG TABLET.ER PO SCH (20:42)
[2017-11-25] MEDS ORDERED: ALPRAZolam 0.25 MG TAB PO SCH (21:00)
[2017-11-25 23:40] VITALS: RESP 16
[2017-11-26 03:32] VITALS: TEMP 97.4
[2017-11-26] MEDS ORDERED: SYMBICORT 80-4.5 MCG INHALER INHALATION SCH (08:00)
[2017-11-26] MEDS: IPRATROPIUM 0.5 MG/2.5 ML NEBU INHALATION SCH ×2 (08:25→11:54)
[2017-11-26] MEDS ORDERED: ALPRAZolam 0.5 MG TAB PO SCH (09:00)
--- NOTE | 2017-11-26 09:04 | P.PN ---
Subjective Progress Note Date: 11/26/17 62-year-old female seen and examined at bedside. Currently sitting up in bed states passing gas no bowel movements tolerating a clear liquid diet. A few hypoactive bowel tones noted. Surgical dressing dry at the surgical site.. No labs pending. Afebrile Postop November 25 .Internal hernia involving cecum including an adhesion of the hepatic fossa, adhesive band causing bowel obstruction including incarceration of cecum and hepatic flexure, moderate redundant sigmoid colon including moderate redundant splenic flexure and moderate redundant sigmoid colon, no hernias along the previous [place] defect, no hernias along the previous jejunojejunostomy Objective - Vital Signs Vital signs: Vital Signs Temp 97.4 F L 11/26/17 03:32 Pulse 78 11/26/17 08:35 Resp 16 11/26/17 00:00 BP 98/60 11/26/17 03:32 Pulse Ox 98 11/26/17 03:32 Intake & Output 11/25/17 11/26/17 11/26/17 18:59 06:59 18:59 Intake Total 1450 1890 Output Total 5 Balance 1445 1890 Weight 68.039 kg Intake: IV 1450 1310 Sodium Chloride 0.9% 1, 600 1160 000 ml @ 75 mls/hr IV . [id number] [facility] Rx#:[id number] Oral 580 Output: Estimated Blood Loss 5 Other: Voiding Method Toilet Toilet # Voids 3 2 - Exam Physical exam pleasant 62-year-old female sitting up in bed tolerating diet talkative oriented 3 Lungs adequate air movement bilaterally on room air Heart S1-S2 audible and regular no murmur noted denies chest pain Abdomen soft surgical dressing sites dry few hypoactive bowel tones no bowel movement states passing gas no nausea vomiting tolerating clear liquid Extremities no edema noted - Labs CBC & Chem 7: 11/24/17 16:30 11/24/17 16:30 Assessment and Plan Assessment: Impression Present on admission abdominal pain suspect due to bowel obstruction suspect due to an adhesive band Postop November 25 laparoscopic lysis of adhesions, reduction of small bowel volvulus, reduction of internal hernia, excision of adhesive band right upper quadrant A prior history of wiley-en-y gastric bypass for morbid obesity one year prior lost over 100 pounds Present on admission right lower quadrant abdominal pain with nausea vomiting CAT scan on admission of the abdomen and pelvis demonstrated inflammatory changes along the right lower quadrant bowel obstruction cannot be ruled out Gastroesophageal reflux disease resolved Chronic obstructive pulmonary disease no evidence of an exacerbation Plan Continue postop surgical care If patient tolerates a clear liquid diet will discharge home today Resume home meds as appropriate Increase activity Pain control DVT and GI prophylaxis The above impression and plan of care have been discussed and directed by signing physician. Haylee Louise nurse practitioner acting as scribe for signing physician.
[2017-11-26] MEDS: SODIUM CHLORIDE 0.9% 1,000 ML IV SCH (09:18)
[2017-11-26] MEDS: HEPARIN SODIUM,PORCINE 5,000 UNIT/ML 1 ML VIAL SQ SCH (09:20)
[2017-11-26] MEDS: PANTOPRAZOLE 40 MG/10 ML VIAL IV SCH (09:20)
[2017-11-26] MEDS: buPROPion SR 150 MG TABLET.ER PO SCH (09:20)
[2017-11-26] MEDS: SERTRALINE 100 MG TAB PO SCH (09:20)
[2017-11-26 09:35] VITALS: BP 109/63
[2017-11-26] MEDS ORDERED: ACETAMINOPHEN TAB 325 MG TAB PO PRN (10:01)
[2017-11-26 11:16] LABS: Basophils % (A) 0 %; Eosinophils # (A) 0.3 k/uL (0-0.7); Eosinophils % (A) 4 %; HCT 38.3 % (34.0-46.0); HGB 12.2 gm/dL (11.4-16.0); Lymphocytes # (A) 1.6 k/uL (1.0-4.8); Lymphocytes % (A) 24 %; MCH 30.9 pg (25.0-35.0); MCHC 31.8 g/dL (31.0-37.0); MCV 97.2 fL (80.0-100.0); Mean Platelet Volume 7.4; Monocytes # (A) 0.3 k/uL (0-1.0); Monocytes % (A) 5 %; Neutrophils # (A) 4.2 k/uL (1.3-7.7); Neutrophils % (A) 65 %; Platelet Count 207 k/uL (150-450); RBC 3.94 m/uL (3.80-5.40); RDW 12.5 % (11.5-15.5); WBC 6.4 k/uL (3.8-10.6)
[2017-11-26 11:34] LABS: Anion Gap 10 mmol/L; Blood Urea Nitrogen 9 mg/dL (7-17); Calcium 8.6 mg/dL (8.4-10.2); Carbon Dioxide 24 mmol/L (22-30); Chloride 106 mmol/L (98-107); Glucose 86 mg/dL (74-99); Phosphorus 3.4 mg/dL (2.5-4.5); Potassium 3.9 mmol/L (3.5-5.1); Sodium 140 mmol/L (137-145)
[2017-11-26 12:05] VITALS: PULSE 73
--- NOTE | 2017-11-26 13:02 | P.DS ---
Providers Date of admission: 11/24/17 15:55 Expected date of discharge: 11/26/17 Attending physician: Ashley Winter Consults: 11/25/17 16:13 Consult Physician Routine Consulting Provider: [facility] Consult Reason/Comments: [facility] Do you want consulting provider notified?: Yes Primary care physician: Stated None Hospital Course: 62-year-old female who has a prior history of wiley-en-y gastric bypass one year prior was doing remarkably well losing over 100 pounds. One week ago patient stated that she developed increased right lower quadrant abdominal pain became more severe in its intensity interfered with activities of daily living. Patient presented to her primary care provider at [facility] who did order CAT scan of the abdomen and pelvis. The CAT scan showed inflammatory changes along the right lower quadrant where obstruction could not be ruled out. Patient was experiencing intermittent episodes of nausea with decreased passage of flatus. The findings were consistent with a bowel obstruction. was advised to be admitted to the hospital. was admitted to the services of the attending and elected to undergo a surgical procedure for treatment of bowel obstruction November 25 underwent laparoscopic lysis of adhesions reduction of a small bowel volvus , reduction of internal hernia, excision of adhesive band right upper quadrant due to a bowel obstruction suspect due to adhesive band Postop there were no new events patient's passing gas tolerating a clear liquid diet felt to be appropriate to be discharged home Impression discharge diagnosis Impression Present on admission abdominal pain suspect due to bowel obstruction suspect due to an adhesive band Postop November 25 laparoscopic lysis of adhesions, reduction of small bowel volvulus, reduction of internal hernia, excision of adhesive band right upper quadrant A prior history of wiley-en-y gastric bypass for morbid obesity one year prior lost over 100 pounds Present on admission right lower quadrant abdominal pain with nausea vomiting CAT scan on admission of the abdomen and pelvis demonstrated inflammatory changes along the right lower quadrant bowel obstruction cannot be ruled out Gastroesophageal reflux disease resolved Chronic obstructive pulmonary disease no evidence of an exacerbation The above impression and plan of care have been discussed and directed by signing physician. Haylee Louise nurse practitioner acting as scribe for signing physician. Plan - Discharge Summary Discharge Rx Participant: Yes New Discharge Prescriptions: New HYDROcodone/APAP 5-325MG [[place] 5-325] 1 tab PO Q6HR PRN #20 tab PRN Reason: Pain Continue Esomeprazole Magnesium [NexIUM] 40 mg PO DAILY Albuterol Sulfate [Proventil Hfa] 2 puff INHALATION RT-TID PRN PRN Reason: Shortness Of Breath buPROPion SR [Wellbutrin SR] 150 mg PO BID Sertraline HCl [Zoloft] 100 mg PO BID Tiotropium [place] [Spiriva] 1 cap INHALATION RT-HS Docusate [Colace] 200 mg PO HS Multivitamins, Thera [Multivitamin (formulary)] 1 tab PO HS Fluticasone/Vilanterol [Breo Ellipta 100-25 Mcg Inhaler] 1 puff INHALATION RT -DAILY L.acidoph,Paracasei, B.lactis [Probiotic] 1 cap PO DAILY Calcium Carbonate [Tums] 1,000 mg PO DAILY ALPRAZolam [Xanax] 0.75 mg PO HS ALPRAZolam [Xanax] 0.5 mg PO QAM Loratadine-Pseudoeph 5-120 mg [Claritin-D 12 Hour] 1 tab PO Q12HR Discharge Medication List Albuterol Sulfate [Proventil Hfa] 2 puff INHALATION RT-TID PRN 05/22/16 [History ] Esomeprazole Magnesium [NexIUM] 40 mg PO DAILY 05/22/16 [History] Sertraline HCl [Zoloft] 100 mg PO BID 05/22/16 [History] Tiotropium [place] [Spiriva] 1 cap INHALATION RT-HS 05/22/16 [History] buPROPion SR [Wellbutrin SR] 150 mg PO BID 05/22/16 [History] Docusate [Colace] 200 mg PO HS 02/11/17 [History] Multivitamins, Thera [Multivitamin (formulary)] 1 tab PO HS 04/30/17 [History] Fluticasone/Vilanterol [Breo Ellipta 100-25 Mcg Inhaler] 1 puff INHALATION RT- DAILY 05/02/17 [History] L.acidoph,Paracasei, B.lactis [Probiotic] 1 cap PO DAILY 05/02/17 [History] ALPRAZolam [Xanax] 0.5 mg PO QAM 11/24/17 [History] ALPRAZolam [Xanax] 0.75 mg PO HS 11/24/17 [History] Calcium Carbonate [Tums] 1,000 mg PO DAILY 11/24/17 [History] Loratadine-Pseudoeph 5-120 mg [Claritin-D 12 Hour] 1 tab PO Q12HR 11/24/17 [ History] HYDROcodone/APAP 5-325MG [[place] 5-325] 1 tab PO Q6HR PRN #20 tab 11/26/17 [Rx] Follow up Appointment(s)/Referral(s): Ashley Winter MD [STAFF PHYSICIAN] - 12/16/17 ([place]) Patient Instructions/Handouts: Exploratory Laparoscopy (DC) Activity/Diet/Wound Care/Special Instructions: May shower. No bathtub soak. Liquid diet for 2 days. Regular diet by Friday. Discharge Disposition: HOME SELF-CARE
--- NOTE | 2017-12-17 21:05 | P.OP ---
Date of Procedure: 11/25/17 Description of Procedure: SURGEON: BROOK BELLA MD MOLDER SETTER: None. PREOPERATIVE DIAGNOSES: 1. Acute bilateral upper abdominal pain 2. Small bowel obstruction. 3. History of gastric bypass. 4. Status post massive weight loss, 100+ pounds 5. Depression. 6. Anxiety. 7. Chronic obstructive pulmonary disease. 8. Gastroesophageal reflux disease. POSTOPERATIVE DIAGNOSES: 1. Acute bilateral upper abdominal pain 2. Small bowel obstruction. 3. History of gastric bypass. 4. Status post massive weight loss, 100+ pounds 5. Depression. 6. Anxiety. 7. Chronic obstructive pulmonary disease. 8. Gastroesophageal reflux disease. 9. Internal hernia involving hepatic fossa and splenic flexure 10. Small bowel volvulus involving the jejunum 11. 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 Diagnostic laparoscopy. 2. Laparoscopic lysis of adhesions over 1 hour 3. Laparoscopic reduction of small bowel volvulus 4. Laparoscopic reduction of internal hernia 5. Laparoscopic excision of adhesive band disease right upper quadrant ANESTHESIA: GETA, local ESTIMATED BLOOD LOSS: 5 mL SPECIMENS REMOVED: (Adhesive band disease) COMPLICATIONS: None. Condition: stable Disposition: floor OPERATIVE FINDINGS: 1. Internal hernia involving cecum including an adhesion of the hepatic fossa 2. Adhesive band causing small bowel obstruction including incarceration of cecum and hepatic flexure 3. Moderate redundant sigmoid colon including moderate redundant splenic flexure and moderate redundant sigmoid colon 4. No hernia along the previous Sumner defect 5. No hernia along the previous jejunojejunostomy INDICATIONS: The patient is a 62-year-old female who presents one year out from a gastric bypass. She reports developing primarily right upper quadrant abdominal pain including new small bowel obstruction. She had a CT of the abdomen and pelvis demonstrating a mesenteric swirl along the right upper quadrant highly suspicious of an internal hernia. As her symptoms have progressed, diagnostic laparoscopy with lysis of adhesions was described. Benefits and risks, including possibility of open technique were described at length. Informed consent was obtained. DESCRIPTION OF PROCEDURE: Patient was brought to the operating room and laid in supine position. After general induction, the abdomen was prepped and draped in standard sterile fashion. Prior to incision, a timeout protocol was confirmed with surgical team regarding patient's name including procedure to be performed. Preoperative medications including antibiotics were given. Additionally, bilateral SCDs including heparin was administered. A 5 mm laparoscopic trocar entry performed of the left upper quadrant after anesthetizing the skin with local anesthetic. The abdomen was insufflated to 15 mmHg pressure she tolerated well. Diagnostic laparoscopy demonstrated moderately dilated mid transverse colon including a volvulus of the cecum at the right upper quadrant. Diffuse small bowel dilatation was encountered consistent with small bowel obstruction. Along the bilateral groins, no inguinal hernias were identified. Two 5-mm trocars were placed: one along the left lateral abdominal wall and the other along the epigastrium. The base of the cecum was without inflammation. The appendix was unremarkable. The small bowel was investigated from the terminal ileum proximally. Internal hernia involving cecum including an adhesion of the hepatic fossa was found. Adhesive band causing small bowel obstruction including incarceration of cecum and hepatic flexure was found. Moderate redundant sigmoid colon including moderate redundant splenic flexure and moderate redundant sigmoid colon was found. A thick adhesive band was identified and resected using Harmonic scalpel. Once released, the small bowel including the cecum was reduced from its volvulus. Next, a separate adhesive band was found incarcerating the proximal transverse colon. The adhesive band was similarly resected. The small bowel volvulus involving the right upper quadrant was reduced and the small bowel obstruction was relieved. In anterograde fashion, the gastric pouch including Da limb was investigated towards the jejunojejunostomy. No Montiel's defect was identified. No jejunojejunostomy mesenteric defect was found. The small bowel was re- investigated in a retrograde fashion as well as the antegrade fashion to confirm closure of all internal hernias including reduction of any small bowel volvulus. Final inspection of the abdomen demonstrated adequate hemostasis including no enterotomies. All instruments and pneumoperitoneum were evacuated from the abdominal cavity. All local was infiltrated in all wounds for postop analgesia. The skin was cleansed with hydrogen peroxide. Dermabond was applied to the skin after re- approximating the incisions with 4-0 Monocryl as described. At the end of the procedure, needle, sponge, and instrument count was verified correct by the surgical scrub technician. The patient had tolerated the procedure well and was taken to the postanesthesia care unit in stable condition. Intraoperative abdominal films were described and discussed with the family who were overall pleased with the level of care.
== END 2017-11-26 15:15 | disposition home or self-care (01) | DRG 329 ==
LOC: 3SUR 15:55
PROVIDERS: ADMIT Surgery Plastic and Reconstructive Surgery; ATTEND Surgery Plastic and Reconstructive Surgery
PROC: 0DNH4ZZ Release Cecum, Percutaneous Endoscopic Approach (ICD-10-PCS; 2017-11-25)
PROC: 0DNL4ZZ Release Transverse Colon, Percutaneous Endoscopic Approach (ICD-10-PCS; 2017-11-25)
PROC: 0DS84ZZ Reposition Small Intestine, Percutaneous Endoscopic Approach (ICD-10-PCS; principal; 2017-11-25 16:30)
DX: K45.0 Other specified abdominal hernia with obstruction, without gangrene (principal); K56.2 Volvulus; Q43.8 Other specified congenital malformations of intestine; K56.50 Intestinal adhesions [bands], unspecified as to partial versus complete obstruction; G47.33 Obstructive sleep apnea (adult) (pediatric); E78.5 Hyperlipidemia, unspecified; F41.9 Anxiety disorder, unspecified; J44.9 Chronic obstructive pulmonary disease, unspecified; K21.9 Gastro-esophageal reflux disease without esophagitis; I83.90 Asymptomatic varicose veins of unspecified lower extremity; F32.9 Major depressive disorder, single episode, unspecified; M19.91 Primary osteoarthritis, unspecified site; Z79.51 Long term (current) use of inhaled steroids; Z79.899 Other long term (current) drug therapy; Z85.828 Personal history of other malignant neoplasm of skin; Z98.84 Bariatric surgery status; Z90.49 Acquired absence of other specified parts of digestive tract; Z87.891 Personal history of nicotine dependence; Z88.1 Allergy status to other antibiotic agents
CPT/HCPCS: 80048; 83735; 84100; 85025; 88304; 94640; 99211

== ENCOUNTER → 2017-11-24 | Outpatient (CLI) | payer MEDICARE, BC ==
[2017-11-24 15:59] VITALS: BP 152/76; PULSE 100; TEMP 97.9; BMI 22.8
--- NOTE | 2017-11-24 16:23 | P.GSHP ---
History of Present Illness H&P Date: 11/24/17 CHIEF COMPLAINT: Small bowel obstruction HISTORY OF PRESENT ILLNESS: The patient is a 62-year-old female with a previous history of a Da-en-Y gastric bypass over 1 year ago. She has done remarkably well loosing over 100 pounds. She reports one-week agol developing increased right lower quadrant abdominal pain initially mild however today severe. She attributes this to gas. She saw her primary care provider at [facility] who ordered a computed tomography scan. A computed tomography scan was obtained demonstrated inflammatory changes along the right lower quadrant where obstruction cannot be ruled out. She presents with intermittent nausea. She has decreased passage of flatus. Clinical findings are consistent with bowel obstruction hence her admission. PAST MEDICAL HISTORY: 1. Chronic obstructive pulmonary disease. 2. Moderate to severe sleep apnea. 3. Gastroesophageal reflux disease, resolved. 4. Hyperlipidemia. 5. Chronic bronchitis. 6. Anxiety. 7. Depression. 8. Osteoarthritis. PAST SURGICAL HISTORY: 1. Fercho fundoplasty. 2. Upper endoscopy. 3. Tubal ligation. 4. Cholecystectomy. 5. Gastric bypass. MEDICATIONS: 1. Wellbutrin 2. Claritin-D 3. Zocor 4. Zoloft 5. Multivitamin 6. Breo ellipta 7. Nexium 8. Vitamin D+Calcium 9. Proventil 10. Alprazolam. ALLERGIES: ERYTHROMYCIN. SOCIAL HISTORY: Past tobacco abuse. FAMILY HISTORY: Pertinent for hypertension. REVIEW OF SYSTEM: CONSTITUTIONAL: Denies any fever or chills. Intentional weight loss over 100 pounds. At her height of 5 feet 7-1/2 inches, her highest weight was 249 pounds. Her body mass index was 38.4. Her ideal body weight is 158 pounds. Today she comes in weighing 145 pounds. Total weight loss 104 pounds in 1 year , lifetime. She has lost 24 pounds in several months. GASTROINTESTINAL: Severe gastroesophageal reflux disease now resolved. RESPIRATORY: Severe COPD. History of sleep apnea. MUSCULOSKELETAL: Has osteoarthritis of the lower back including bilateral hips and knees improve with weight loss. ENDOCRINE: No reports of thyroid disorder or glucose intolerance. CARDIOVASCULAR: History of hyperlipidemia. Also has hypertension. All improved. NEURO: No reports of stroke or seizure disorder. PSYCH: History of depression without suicidal ideation. History of anxiety. HEMATOLOGIC: No reports of DVTs or easy bruising or bleeding. HEENT: No reports of dysphagia, troubles with hearing or nosebleeds. SKIN: No skin cancer. No diffuse rash. PHYSICAL EXAM: VITAL SIGNS: 145 pounds, body mass index of 22.8 Vital Signs Temp 97.9 F 11/24/17 15:53 Pulse 100 11/24/17 15:53 Resp BP 152/76 11/24/17 15:53 Pulse Ox Intake & Output 11/23/17 11/24/17 11/24/17 18:59 06:59 18:59 Weight 66.043 kg GENERAL: Well-developed female, mild distress. ABDOMEN: Soft, nondistended. Mild tenderness along the right lower and upper abdomen. HEENT: No scleral icterus. Extraocular movements grossly intact. Moist buccal mucosa. NECK: Supple without lymphadenopathy. CHEST: Nonlabored respirations. Equal bilateral excursions. CARDIOVASCULAR: Tachycardic. Palpable 2+ pulses. MUSCULOSKELETAL: No clubbing, cyanosis, or edema. NEURO: No focal or lateralizing signs. Cranial nerves II - 12 grossly intact. PSYCH: Appropriate affect. Alert and oriented to person, place, and time. SKIN: Well perfused. Slow skin turgor. STUDIES: I personally reviewed her films from [place] demonstrating a mesenteric swirl along the right upper quadrant consistent with internal volvulus and internal hernia as a site for obstruction. ASSESSMENT: 1. Internal hernia with bowel obstruction. 2. Small bowel volvulus. 3. History of Da-en-Y gastric bypass. 4. Right upper quadrant abdominal pain. 5. Right lower quadrant abdominal pain. 6. Chronic obstructive pulmonary disease. 7. Anxiety disorder. PLAN: 1. Her clinical findings including computed tomography scan are consistent with internal hernia causing bowel obstruction. Recommended immediate admission for inpatient admission anticipated for 2 nights. 2. DVT prophylaxis. 3. Antibiotic prophylaxis. 4. Will need diagnostic laparoscopy with reduction of small bowel obstruction including closure of internal hernia. 5. Benefits and risks of surgical intervention were described including clinical care plan which she and her demonstrated understanding. Past Medical History Past Medical History: Cancer, COPD, GERD/Reflux, Hyperlipidemia, Respiratory Disorder, Sleep Apnea/CPAP/BIPAP Additional Past Medical History / Comment(s): chronic bronchitis, varicose veins , hx ulcers, hx skin cancer, uses C-Pap, recent admission for nausea/vomiting, possible "blockage" per pt. History of Any Multi-Drug Resistant Organisms: None Reported Past Surgical History: Bariatric Surgery, Cholecystectomy, Tubal Ligation Additional Past Surgical History / Comment(s): fercho fundoplication and Gastric bypass Da-en-y 12/05/16-pt stated "has lost 35# since sx". egd/dilation Past Anesthesia/Blood Transfusion Reactions: No Reported Reaction Past Psychological History: Anxiety, Depression Smoking Status: Former smoker Past Alcohol Use History: None Reported Past Drug Use History: None Reported - Past Family History Mother Family Medical History: Hypertension Father Family Medical History: No Reported History Additional Family Medical History / Comment(s): mom had hypertension. Medications and Allergies Home Medications Medication Instructions Recorded Confirmed Type ALPRAZolam 1 mg PO HS 05/22/16 05/02/17 History Albuterol Sulfate [Proventil Hfa] 2 puff INHALATION RT-TID PRN 05/22/16 History Esomeprazole Magnesium [NexIUM] 40 mg PO DAILY 05/22/16 05/02/17 History Sertraline HCl [Zoloft] 50 mg PO QAM 05/22/16 05/02/17 History Sertraline HCl [Zoloft] 100 mg PO HS 05/22/16 05/02/17 History Tiotropium [place] [Spiriva] 1 cap INHALATION RT-HS 05/22/16 05/02/17 History buPROPion SR [Wellbutrin Sr] 150 mg PO BID 05/22/16 05/02/17 History Slick/D3/Mag11/Zinc/[employer]ical [employer]/Juan/Bor 2 tab PO DAILY 01/21/17 05/02/17 History [Caltrate 600+D Plus Tablet] Docusate [Colace] 100 mg PO DAILY 02/11/17 05/02/17 History Loratadine-Pseudoeph 5-120 mg 1 each PO Q12HR #30 tab 03/13/17 05/02/17 Rx [Claritin-D 12 HR] Multivitamins, Thera [Multivitamin 1 tab PO DAILY 04/30/17 05/07/17 History (formulary)] Fluticasone/Vilanterol [Breo 1 inhalation PO QAM 05/02/17 05/02/17 History Ellipta 100-25 Mcg Inhaler] L.acidoph,Paracasei, B.lactis 1 each PO DAILY 05/02/17 05/02/17 History [Probiotic] Allergies Allergy/AdvReac Type Severity Reaction Status Date / Time erythromycin base AdvReac Diarrhea Verified 11/24/17 13:59
== END | disposition home or self-care (01) ==
LOC: BARWHC3 14:50
PROVIDERS: ATTEND Surgery Plastic and Reconstructive Surgery
DX: K46.0 Unspecified abdominal hernia with obstruction, without gangrene (principal); K56.2 Volvulus; J44.9 Chronic obstructive pulmonary disease, unspecified; F41.9 Anxiety disorder, unspecified; E78.5 Hyperlipidemia, unspecified; F32.9 Major depressive disorder, single episode, unspecified; M19.90 Unspecified osteoarthritis, unspecified site; Z87.891 Personal history of nicotine dependence; Z90.49 Acquired absence of other specified parts of digestive tract; Z88.1 Allergy status to other antibiotic agents; Z79.899 Other long term (current) drug therapy; Z98.84 Bariatric surgery status
CPT/HCPCS: 99211

== ENCOUNTER → 2017-12-10 | Outpatient (CLI) | payer MEDICARE, BC ==
[2017-12-10 14:06] VITALS: BMI 22.3
[2017-12-10 14:54] LABS: HCT 42.1 % (34.0-46.0); HGB 13.7 gm/dL (11.4-16.0); MCH 31.4 pg (25.0-35.0); MCHC 32.5 g/dL (31.0-37.0); MCV 96.6 fL (80.0-100.0); Mean Platelet Volume 6.7; Platelet Count 277 k/uL (150-450); RBC 4.36 m/uL (3.80-5.40); RDW 12.8 % (11.5-15.5); WBC 8.5 k/uL (3.8-10.6)
[2017-12-10 15:02] LABS: Prothrombin Time 9.5 sec (9.0-12.0)
[2017-12-10 15:03] LABS: ALT 41 U/L (9-52); AST 32 U/L (14-36); Albumin 4.2 g/dL (3.5-5.0); Alkaline Phosphatase 93 U/L (38-126); Anion Gap 9 mmol/L; Blood Urea Nitrogen 14 mg/dL (7-17); Calcium 9.6 mg/dL (8.4-10.2); Carbon Dioxide 31 mmol/L (22-30); Chloride 103 mmol/L (98-107); Cholesterol 196 mg/dL (<200); Glucose 81 mg/dL (74-99); HDL Cholesterol 86 mg/dL (40-60); LDL Cholesterol,Calculated 92 mg/dL (0-99); Phosphorus 4.2 mg/dL (2.5-4.5); Potassium 4.6 mmol/L (3.5-5.1); Sodium 143 mmol/L (137-145); Total Bilirubin 0.2 mg/dL (0.2-1.3); Total Protein 6.6 g/dL (6.3-8.2); Triglycerides 90 mg/dL (<150)
[2017-12-10 15:10] VITALS: PULSE 100; TEMP 98.1
[2017-12-10 15:11] VITALS: BP 129/80
[2017-12-10 18:57] LABS: Iron Saturation 17.59 (12.00-45.00)
[2017-12-10 19:08] LABS: Folate, Serum 19.1 ng/mL
[2017-12-10 20:32] LABS: Parathyroid Hormone Intact 52.1 pg/mL (14.0-72.0)
[2017-12-10 23:11] LABS: Hemoglobin A1C 5.4 % (4.0-6.0)
[2017-12-11 14:18] LABS: Vitamin B1 78 ug/L (38-122)
[2017-12-12 06:05] LABS: Vitamin A 60 ug/dL (38-106)
--- NOTE | 2017-12-22 19:44 | P.PN ---
Subjective Progress Note Date: 12/10/17 DATE: 12/10/2017 CHIEF COMPLAINT: Follow up gastric bypass HISTORY OF PRESENT ILLNESS: The patient is a 62-year-old female who 3 weeks ago was admitted for small bowel obstruction. She is s/p laparoscopic lysis adhesions from bowel obstruction caused from previous cholecystectomy. She is doing well. No reports of nausea or vomiting. No reports of heartburn. She reports her lungs are better as her COPD has improved. She presents 1 year out from her gastric bypass, November 2016. Her ideal body weight is 158 pounds for her 5 foot 7 frame. Her highest weight was 249 pounds. Today she comes in weighing 144 pounds. She has lost 1 pound in 3 weeks. Total percent excess weight loss is 115%, lifetime. She has lost 105 pounds, lifetime. BMI is reduced from 38.5 to 22.3. PHYSICAL EXAM: VITAL SIGNS: 144 pounds, body mass index of 22.3 Vital Signs Temp 98.1 F 12/10/17 13:30 Pulse 100 12/10/17 13:30 Resp BP 129/80 12/10/17 13:30 Pulse Ox GENERAL: Well-developed female, mild distress. ABDOMEN: Soft, nondistended. Incisions are clean, dry, and intact without cellulitis or infection. HEENT: No scleral icterus. Extraocular movements grossly intact. Moist buccal mucosa. NECK: Supple without lymphadenopathy. CHEST: Nonlabored respirations. Equal bilateral excursions. CARDIOVASCULAR: Tachycardic. Palpable 2+ pulses. MUSCULOSKELETAL: No clubbing, cyanosis, or edema. NEURO: No focal or lateralizing signs. Cranial nerves II - 12 grossly intact. PSYCH: Appropriate affect. Alert and oriented to person, place, and time. SKIN: Well perfused. Good skin turgor. ASSESSMENT: 1. History of Da-en-Y gastric bypass. 2. Morbid obesity due to excess calories, resolved. 3. BMI reduced from 38.5 to 22.3. PLAN: 1. Clinically she is doing well. She feels great:"I have never been this skinny in my life!" 2. Recommend bariatric labs. 3. Follow-up yearly or sooner for any issues. Laboratory Last Values WBC 8.5 k/uL (3.8-10.6) 12/10/17 14:15 RBC 4.36 m/uL (3.80-5.40) 12/10/17 14:15 Hgb 13.7 gm/dL (11.4-16.0) 12/10/17 14:15 Hct 42.1 % (34.0-46.0) 12/10/17 14:15 MCV 96.6 fL (80.0-100.0) 12/10/17 14:15 MCH 31.4 pg (25.0-35.0) 12/10/17 14:15 MCHC 32.5 g/dL (31.0-37.0) 12/10/17 14:15 RDW 12.8 % (11.5-15.5) 12/10/17 14:15 Plt Count 277 k/uL (150-450) 12/10/17 14:15 PT 9.5 sec (9.0-12.0) 12/10/17 14:15 INR 1.0 (<1.2) 12/10/17 14:15 APTT 21.0 sec (22.0-30.0) L 12/10/17 14:15 Sodium 143 mmol/L (137-145) 12/10/17 14:15 Potassium 4.6 mmol/L (3.5-5.1) 12/10/17 14:15 Chloride 103 mmol/L (98-107) 12/10/17 14:15 Carbon Dioxide 31 mmol/L (22-30) H 12/10/17 14:15 Anion Gap 9 mmol/L 12/10/17 14:15 BUN 14 mg/dL (7-17) 12/10/17 14:15 Creatinine 0.90 mg/dL (0.52-1.04) 12/10/17 14:15 Est GFR (MDRD) Af Amer >60 (>60 ml/min/1.73 sqM) 12/10/17 14:15 Est GFR (MDRD) Non-Af >60 (>60 ml/min/1.73 sqM) 12/10/17 14:15 Glucose 81 mg/dL (74-99) 12/10/17 14:[address] Glu mg/dL 108 12/10/17 14:15 Hemoglobin A1c 5.4 % (4.0-6.0) 12/10/17 14:15 Calcium 9.6 mg/dL (8.4-10.2) 12/10/17 14:15 Phosphorus 4.2 mg/dL (2.5-4.5) 12/10/17 14:15 Magnesium 2.5 mg/dL (1.6-2.3) H 12/10/17 14:15 Iron 57 ug/dL (50-170) 12/10/17 14:15 TIBC 324 ug/dL (228-460) 12/10/17 14:15 Iron Saturation 17.59 (12.00-45.00) 12/10/17 14:15 Ferritin 42.4 ng/mL (10.0-291.0) 12/10/17 14:15 Total Bilirubin 0.2 mg/dL (0.2-1.3) 12/10/17 14:15 AST 32 U/L (14-36) 12/10/17 14:15 ALT 41 U/L (9-52) 12/10/17 14:15 Alkaline Phosphatase 93 U/L (38-126) 12/10/17 14:15 Total Protein 6.6 g/dL (6.3-8.2) 12/10/17 14:15 Albumin 4.2 g/dL (3.5-5.0) 12/10/17 14:15 Prealbumin 29.0 mg/dL (18.0-42.0) 12/10/17 14:15 Triglycerides 90 mg/dL (<150) 12/10/17 14:15 Cholesterol 196 mg/dL (<200) 12/10/17 14:15 LDL Cholesterol, Calc 92 mg/dL (0-99) 12/10/17 14:15 HDL Cholesterol 86 mg/dL (40-60) H 12/10/17 14:15 Vitamin A 60 ug/dL (38-106) 12/10/17 14:15 Vitamin B1 78 ug/L (38-122) 12/10/17 14:15 Vitamin B12 436.0 pg/mL (200.0-944.0) 12/10/17 14:15 Vitamin D 25-Hydroxy 30.0 ng/mL (30.0-100.0) 12/10/17 14:15 Folate 19.1 ng/mL 12/10/17 14:15 TSH 2.150 mIU/L (0.465-4.680) 12/10/17 14:15 PTH Intact 52.1 pg/mL (14.0-72.0) 12/10/17 14:15 Copper 1504 ug/L (810-1990) 12/10/17 14:15 Selenium 134 mcg/L (63-160) 12/10/17 14:15 Zinc 77 ug/dL (60-130) 12/10/17 14:15 Objective - Vital Signs Vital signs: Intake & Output 12/09/17 12/10/17 12/10/17 18:59 06:59 18:59 Weight 65.635 kg - Labs CBC & Chem 7: 12/10/17 14:15 12/10/17 14:15
== END | disposition home or self-care (01) ==
LOC: BARWHC3 12:35
PROVIDERS: ATTEND Surgery Plastic and Reconstructive Surgery
DX: Z09 Encounter for follow-up examination after completed treatment for conditions other than malignant neoplasm (principal); K91.30 Postprocedural intestinal obstruction, unspecified as to partial versus complete; J44.9 Chronic obstructive pulmonary disease, unspecified; E21.1 Secondary hyperparathyroidism, not elsewhere classified; D50.9 Iron deficiency anemia, unspecified; K90.9 Intestinal malabsorption, unspecified; E55.9 Vitamin D deficiency, unspecified; K74.1 Hepatic sclerosis; N19 Unspecified kidney failure; K50.90 Crohn's disease, unspecified, without complications; Z98.84 Bariatric surgery status; Z90.49 Acquired absence of other specified parts of digestive tract
CPT/HCPCS: 84255; 84134; 84425; 80061; 80053; 82607; 82728; 82525; 82746; 83540; 83550; 83735; 84100; 84443; 84590; 84630; 85027; 85610; 85730; 82306; 83970; 83036; 36415; G0463; 99211